=== PATIENT | male | born 1935 | race Caucasian/White ===

== ENCOUNTER → 2016-11-06 | Outpatient (CLI) | payer OTHER ==
[~2016-11-06] MED LIST: CHOL1CAP30 PO; CHOLTAB5 PO; CYAN100048 PO; HYDR25TA5 PO; LSN20 PO; MULT1TAB18 PO; OXYC-57 PO; PARO10TA PO; PARO20TA4 PO; POLY335019 PO; PSYL48.59 PO; SIMV-150 PO
== END | disposition home or self-care (01) ==
LOC: C.PATHSPEC 11:47
PROVIDERS: ATTEND Plastic Surgery
DX: C44.91 Basal cell carcinoma of skin, unspecified (principal)

== ENCOUNTER 2017-04-25 10:22 | Day surgery (SDC) | payer OTHER ==
[2017-04-17 09:26] VITALS: BMI 26.0
--- NOTE | 2017-04-17 10:08 | PAT Medication Instructions ---
Service Date Apr 17, 2017. Current Home Medication List Cholecalciferol (D-1000), 1 TAB PO QAM Cyanocobalamin (Vitamin B-12), 1 TAB PO QAM Multiple Vitamins W/ Minerals (One Daily For Men 50+ Adv), 1 TAB PO QAM Paroxetine Hcl (Paxil), 1 TAB PO QPM Polyethylene Glycol 3350 (Miralax), 17 GM PO DAILY PRN for Constipation Psyllium (Metamucil), 1 PKT PO DAILY PRN for Constipation Simvastatin (Simvastatin), 10 MG PO HS Medication Instructions For Your Scheduled Surgery - Hold the following medications the morning of surgery: Cholecalciferol (D-1000), 1 TAB PO QAM Cyanocobalamin (Vitamin B-12), 1 TAB PO QAM Multiple Vitamins W/ Minerals (One Daily For Men 50+ Adv), 1 TAB PO QAM Polyethylene Glycol 3350 (Miralax), 17 GM PO DAILY PRN for Constipation Psyllium (Metamucil), 1 PKT PO DAILY PRN for Constipation - Take the following medications as scheduled the night before surgery: Paroxetine Hcl (Paxil), 1 TAB PO QPM Simvastatin (Simvastatin), 10 MG PO HS *nothing to eat or drink after midnight* If you have any questions please call us at [phone] or [phone] or [phone]
[2017-04-17 11:11] LABS: BASO % 0.4 %; BASO ABS # 0.02 K/uL (0-0.2); COMPLETE YES; EOS % 2.1 %; HEMATOCRIT 42.5 % (42-52); IG% 0.2 %; LYMPH % 22.8 %; LYMPH ABS # 1.09 K/uL (1.2-3.4); MEAN CELL VOLUME 90.6 fL (80-100); MEAN CORPUSCULAR HEMOGLOBIN 30.3 pg (25-34); MEAN CORPUSCULAR HGB CONC 33.4 g/dl (32-36); MEAN PLATELET VOLUME 9.1 fL (7.4-10.4); MONO % 14.8 %; NEUT % 59.7 %; PLATELET COUNT 151 K/uL (130-400); RED BLOOD COUNT 4.69 M/uL (4.7-6.1); WHITE BLOOD COUNT 4.79 K/uL (4.8-10.8)
[2017-04-17 11:22] LABS: BUN/CREATININE RATIO 14.3 (10-20); CALCIUM 9.5 mg/dl (8.5-10.1); CREATININE 1.1 mg/dl (0.60-1.40); POTASSIUM 3.8 mmol/L (3.5-5.1)
--- NOTE | 2017-04-17 12:08 | DIAGNOSTIC IMAGING REPORT ---
CHEST 2 VIEWS ROUTINE CLINICAL HISTORY: Preoperative evaluation. COMPARISON STUDY: Chest radiograph June 14, 2014. FINDINGS: Lung volumes are normal. No pneumothorax or pleural effusion is present. Cardiac size is within normal limits. There is no evidence of pulmonary edema. There is no consolidation. IMPRESSION: No acute cardiopulmonary findings. Electronically signed by: Chaz Cooley M.D. 04/17/2017 12:06 PM Dictated Date/Time: 04/17/2017 12:05 PM
[~2017-04-25] VITALS: Ht 180.3 cm; Wt 86.4 kg
[~2017-04-25 10:22] MED LIST changes: +ATROPINE SULFATE 0.1 MG/ML 5ML SYR IV PRN; -CHOL1CAP30 PO; +EpHEDrine SULFATE INJ 50 MG/ML AMP IV PRN; +FENTANYL CITRATE INJ 50 MCG/1 ML 2 ML VIAL IV PRN; -HYDR25TA5 PO; +HYDROmorphone INJ 1 MG/ML SYR IV PRN; +LACTATED RINGER'S 1000ML 1,000 ML IV SCH; -LSN20 PO; +ONDANSETRON INJ 2 MG/ML 2 ML VIAL IV PRN; -OXYC-57 PO; -PARO10TA PO
[2017-04-25 11:17] VITALS: BP 135/85; PULSE 56; TEMP 36.6; O2SAT 97; Ht 180.3 cm; Wt 86.4 kg
[2017-04-25] MEDS ORDERED: OXYC-57 PO (12:11)
--- NOTE | 2017-04-25 12:14 | Discharge Instructions ---
Discharge Instructions Date of Service Apr 25, 2017. Admission Reason for Admission: Left Inguinal Hernia Discharge Discharge Diagnosis / Problem: left inguinal hernia repair Discharge Goals Goal(s): Decrease discomfort Activity Recommendations Activity Limitations: as noted below Lifting Limitations: no more than 10 pounds Shower/Bathe: tomorrow Driving or Machine Use: 1 week . Instructions / Follow-Up Instructions / Follow-Up Dr. Pantoja in 1 week, call if you do not already have an appt or have any questions Ice left groin off and on alternating every 20 minutes until bedtime start with 1 Percocet tablet for pain, take 2 if one is not enough, do not take additional Tylenol products Current Hospital Diet Patient's current hospital diet: Discharge Diet Recommended Diet: Regular Diet Pending Studies Studies pending at discharge: no Medical Emergencies . Who to Call and When: Medical Emergencies: If at any time you feel your situation is an emergency, please call 911 immediately. . Non-Emergent Contact Non-Emergency issues call your: Surgeon Call Non-Emergent contact if: you have a fever, temperature is above 101.5, your pain is not controlled, wound has increased pain, you have any medication questions . "Provider Documentation" section prepared by Kwan Jackson. . VTE Core Measure Inpt VTE Proph given/why not?: SCD's
--- NOTE | 2017-04-25 12:14 | History & Physical Bridge Note ---
H&P Re-Evaluation Bridge Note: I have examined the patient, reviewed the History & Physical and in the interval since the performance of the History & Physical I have noted the following changes of clinical significance: No changes noted pt marked to be here later all questions answered
[2017-04-25] MEDS ORDERED: PROPOFOL IV EMULSION 10 MG/ML 20 ML VIAL IV ONE (12:23)
[2017-04-25] MEDS ORDERED: ONDANSETRON INJ 2 MG/ML 2 ML VIAL ONE (12:23)
[2017-04-25] MEDS ORDERED: LIDOCAINE HCL 2% 2 ML VIAL (20MG/ML) ONE (12:23)
[2017-04-25] MEDS ORDERED: FENTANYL CITRATE INJ 50 MCG/1 ML 2 ML VIAL ONE ×2 (12:24→13:08)
[2017-04-25] MEDS ORDERED: BACITRACIN 50000 UNIT VIAL ONE (12:26)
[2017-04-25] MEDS ORDERED: BUPIVACAINE 0.5 % 5 MG/1 ML MPF 30ML VIAL ONE (12:26)
[2017-04-25] MEDS ORDERED: CEFAZOLIN IV 2,000 MG/60 ML D5W IV ONE (12:33)
[2017-04-25] MEDS ORDERED: EpHEDrine SULFATE INJ 50 MG/ML AMP ONE (12:59)
[2017-04-25] MEDS ORDERED: GLYCOPYRROLATE INJ 0.2 MG/ML VIAL ONE (12:59)
[2017-04-25] MEDS ORDERED: ATROPINE SULFATE 0.4 MG/ML 1 ML VIAL ONE (12:59)
[2017-04-25] MEDS ORDERED: LACTATED RINGER'S 1000ML 1,000 ML IV SCH (13:54)
--- NOTE | 2017-04-25 13:56 | [facility] Operative Report ---
Operative Report Operative Date Apr 25, 2017. Pre-Operative Diagnosis Left Inguinal Hernia Post-Operative Diagnosis plus sliding indirect hernia Procedure(s) Performed Left inguinal hernia repair with mesh Surgeon Dr Pantoja Child Study Team Director Surgeon(s) Kwan Tenorio PA-C Estimated Blood Loss 10ml Findings large indirect hernia sliding Specimens none Description of Procedure or summary dictated ext [id number] confirmation number [id number] I attest to the content of the Intraoperative Record and any orders documented therein. Any exceptions are noted below.
[2017-04-25] MEDS ORDERED: ONDANSETRON INJ 2 MG/ML 2 ML VIAL IV PRN (14:00)
[2017-04-25] MEDS ORDERED: OXYCODONE/ACETAMINOPHEN 5-325 TAB PO PRN (14:00)
[2017-04-25] MEDS ORDERED: MoRPHine SULFATE 2 MG/ML CARP IV PRN (14:00)
--- NOTE | 2017-04-25 14:38 | Anesthesiology Progress Note ---
Anesthesia Post Op Note Date & Time Apr 25, 2017 at 14:38 Vital Signs Pain Intensity: 0 Vital Signs Past 12 Hours Date Time Temp Pulse Resp B/P (MAP) Pulse Ox O2 Delivery O2 Flow Rate FiO2 04/25/17 14:30 60 24 132/75 99 Room Air 04/25/17 14:20 60 17 134/75 98 Oxymask 10 04/25/17 14:10 43 14 139/65 99 Oxymask 10 04/25/17 14:02 36.2 47 19 139/56 97 Oxymask 10 04/25/17 11:17 36.6 56 18 135/85 (102) 97 Room Air Notes Mental Status: alert / awake / arousable, participated in evaluation Pt Amnestic to Procedure: Yes Nausea / Vomiting: adequately controlled Pain: adequately controlled Airway Patency, RR, SpO2: stable & adequate BP & HR: stable & adequate Hydration State: stable & adequate Anesthetic Complications: no major complications apparent
--- NOTE | 2017-04-25 14:45 | OPERATIVE REPORT ---
DATE OF OPERATION: 04/25/2017 PREOPERATIVE DIAGNOSIS: Left inguinal hernia. POSTOPERATIVE DIAGNOSIS: Left indirect sliding hernia. PROCEDURE: Open repair left indirect sliding hernia with Marlex mesh tension free. SURGEON: Dr. Pantoja. EYE GLASS FRAME POLISHER: [place] Jackson PA-C. OPERATION AND FINDINGS: SUMMARY: The patient was brought into the operating room theater. The abdomen was prepped with Betadine scrubbing solution and properly draped. A 0.5% Marcaine without epinephrine was used, preemptive local analgesia 2 fingerbreadths medial anterior superior iliac crest. An incision was then made parallel to the inguinal ligament, deepened through subcutaneous tissue onto the external oblique. Some large vessels subQ were ligated with 2-0 silk. The external oblique was opened along the course of its fibers to the external ring, which patient had a significant amount of incarcerated tissue at the external ring. We elevated over a Jeffery drain, the cord and its structures and identified as we dissected free that this was a large indirect hernia. We had to open the hernial sac and found the sigmoid adherent to the area, especially part of whether it was omental or mesenteric surface to the sigmoid, therefore the opening was made, it was about 3 cm at most, it was then closed with a chromic suture and returned all this in the preperitoneal area. We used some 3-0 silk sutures to close the some transversalis fascia just to get it out of the way. The cord and structures had some very small lipomatous tissue which we did not molest. The area was then checked for hemostasis. The patient also had a direct weakness which we closed the approximate some transversalis fascia with 3-0 silk, brought in a sheet of Marlex mesh, 3 x 6, cut it appropriately and sutured onto the symphysis pubis, shelving portion of the inguinal ligament, conjoined tendon superiorly to completely reconstruct the internal ring that could only accommodate the tip of a hemostat. There were a few nerve fibers that were trapped underneath the external oblique superiorly. As we identified those I intentionally just cut those feeling that it would be trapped. The area was then checked for hemostasis and appeared satisfactory. We used some local anesthetic 0.5% Marcaine above and below in the muscular fascial planes and then closed the external oblique over the cord and its structures with mesh, 3-0 interrupted sutures to reconstruct the external ring. Subcutaneous tissue was brought back 3-0 Dexon and hai for skin edges. Dressing was applied. The procedure was tolerated well by the patient. Estimated blood loss approximately 10 mL. The patient was taken to recovery room in good condition. I attest to the content of the Intraoperative Record and any orders documented therein. Any exception s are noted below.
[2017-04-25 14:50] VITALS: BP 151/71; PULSE 67; TEMP 36.5; O2SAT 92
[2017-04-25 15:25] VITALS: BP 150/74; PULSE 65; O2SAT 94
[2017-04-25 15:55] VITALS: BP 125/52; PULSE 58; TEMP 36.4; O2SAT 98
== END 2017-04-25 16:03 | disposition home or self-care (01) ==
LOC: C.ACU 10:22
PROVIDERS: ATTEND Surgery
DX: K40.90 Unilateral inguinal hernia, without obstruction or gangrene, not specified as recurrent (principal); E78.5 Hyperlipidemia, unspecified; F41.9 Anxiety disorder, unspecified; F32.9 Major depressive disorder, single episode, unspecified; H90.41 Sensorineural hearing loss, unilateral, right ear, with unrestricted hearing on the contralateral side; Z79.899 Other long term (current) drug therapy

== ENCOUNTER → 2017-06-20 | Outpatient (CLI) | payer OTHER ==
[~2017-06-20] MED LIST changes: -ATROPINE SULFATE 0.1 MG/ML 5ML SYR IV PRN; -EpHEDrine SULFATE INJ 50 MG/ML AMP IV PRN; -FENTANYL CITRATE INJ 50 MCG/1 ML 2 ML VIAL IV PRN; -HYDROmorphone INJ 1 MG/ML SYR IV PRN; -LACTATED RINGER'S 1000ML 1,000 ML IV SCH; -ONDANSETRON INJ 2 MG/ML 2 ML VIAL IV PRN
[2017-06-20 17:54] LABS: BASO % 0.6 %; BASO ABS # 0.04 K/uL (0-0.2); COMPLETE YES; EOS % 1.8 %; HEMATOCRIT 44.7 % (42-52); IG% 0.2 %; LYMPH % 28.1 %; LYMPH ABS # 1.84 K/uL (1.2-3.4); MEAN CELL VOLUME 90.7 fL (80-100); MEAN CORPUSCULAR HEMOGLOBIN 30.2 pg (25-34); MEAN CORPUSCULAR HGB CONC 33.3 g/dl (32-36); MEAN PLATELET VOLUME 9.9 fL (7.4-10.4); MONO % 12.5 %; NEUT % 56.8 %; PLATELET COUNT 213 K/uL (130-400); RED BLOOD COUNT 4.93 M/uL (4.7-6.1); WHITE BLOOD COUNT 6.54 K/uL (4.8-10.8)
[2017-06-20 17:58] LABS: PROTHROMBIN TIME (PATIENT) 10.2 SECONDS (9.0-12.0)
[2017-06-20 18:03] LABS: ALT/SGPT 29 U/L (12-78); AST/SGOT 26 U/L (15-37); BLOOD UREA NITROGEN 20 mg/dl (7-18); BUN/CREATININE RATIO 15.4 (10-20); CALCIUM 8.9 mg/dl (8.5-10.1); CARBON DIOXIDE 32 mmol/L (21-32); CHLORIDE 103 mmol/L (98-107); CREATININE 1.27 mg/dl (0.60-1.40); GLUCOSE 106 mg/dl (70-99); POTASSIUM 3.9 mmol/L (3.5-5.1); SODIUM 136 mmol/L (136-145)
[2017-06-20 18:13] LABS: ALB/GLOB RATIO 1.1 (0.9-2); ALKALINE PHOSPHATASE 68 U/L (45-117)
== END | disposition home or self-care (01) ==
LOC: C.LABPVFM 15:33
PROVIDERS: ATTEND Neuromusculoskeletal Medicine & OMM
DX: Z00.00 Encounter for general adult medical examination without abnormal findings (principal); K92.1 Melena

== ENCOUNTER → 2017-06-24 | Outpatient (CLI) | payer OTHER ==
--- NOTE | 2017-06-24 13:04 | DIAGNOSTIC IMAGING REPORT ---
L-SPINE MIN 4 VIEWS ROUTINE CLINICAL HISTORY: M54.5 Low back painM62.830 Lumbar paraspinal muscle spasm COMPARISON STUDY: No previous studies for comparison. FINDINGS: There are moderate multilevel degenerative changes with prominent anterior osteophytes. There is disc space narrowing most pronounced the L4-5 level with small posterior osteophytes. There is narrowing of the AP diameter spinal canal, and spinal stenosis most be considered. IMPRESSION: 1. Moderate multilevel degenerative change 2. Possible underlying spinal stenosis 3. No acute fractures Electronically signed by: Hugo Sanders M.D. 06/24/2017 1:03 PM Dictated Date/Time: 06/24/2017 1:01 PM
== END | disposition home or self-care (01) ==
LOC: C.RAD1850 12:00
PROVIDERS: ATTEND Neuromusculoskeletal Medicine & OMM
DX: M54.5 Low back pain (principal); M62.830 Muscle spasm of back

== ENCOUNTER 2017-07-04 14:14 | Emergency (ER) | payer OTHER ==
[~2017-07-04] VITALS: Ht 180.3 cm; Wt 85.8 kg
[2017-07-04 14:18] VITALS: TEMP 36.7; Ht 180.3 cm; Wt 85.8 kg
[2017-07-04] MEDS ORDERED: SODIUM CHLORIDE 0.9% 500ML 500 ML IV STA (14:40)
--- NOTE | 2017-07-04 14:45 | EMERGENCY ROOM VISIT NOTE ---
History First contact with patient: 14:27 Chief Complaint: DIZZY Stated Complaint: DIZZY,BALANCE,ALWAYS TIRED History of Present Illness The patient is a 81 year old male who presents to the Emergency Room with complaints of lightheadedness that occurs upon standing. This has been going on for the last several weeks. He has tried increasing his fluid intake with minimal relief of his symptoms. He denies any spinning sensation or nausea. He denies any syncope. No difficulty breathing. No pain in his chest. No recent changes in medications. He denies any recent illnesses. Review of Systems 10 system review performed and negative unless noted in HPI or below Past Medical/Surgical History Surgical Problems: (1) Hx of hernia repair Social History Smoking Status: Former Smoker Alcohol Use: occasionally Drug Use: none Marital Status: Housing Status: lives with significant other Occupation Status: retired Current/Historical Medications Scheduled Cholecalciferol (D-1000), 1 TAB PO Q2D Cyanocobalamin (Vitamin B-12), 1 TAB PO Q2D Multiple Vitamins W/ Minerals (One Daily For Men 50+ Adv), 1 TAB PO Q2D Paroxetine Hcl (Paxil), 20 MG PO QPM Prednisone (Prednisone), 50 MG PO DAILY Simvastatin (Simvastatin), 10 MG PO HS Scheduled PRN Polyethylene Glycol 3350 (Miralax), 17 GM PO DAILY PRN for Constipation Psyllium (Metamucil), 1 PKT PO DAILY PRN for Constipation Physical Exam Vital Signs Date Time Temp Pulse Resp B/P (MAP) Pulse Ox O2 Delivery O2 Flow Rate FiO2 07/04/17 16:16 61 16 135/70 94 Room Air 07/04/17 15:28 69 07/04/17 15:27 59 18 138/69 98 Room Air 68 119/59 80 120/50 07/04/17 14:18 36.7 61 24 145/76 96 Room Air Physical Exam VITALS: Vitals are noted on the nurse's note and reviewed by myself. Vital signs stable. GENERAL: Pleasant 81-year-old white male, in no acute distress, SKIN: The skin was without rashes, erythema, edema, or bruising. HEAD: Normocephalic atraumatic. EARS: External auditory canals clear, tympanic membranes pearly espino without erythema or effusion bilaterally. EYES: Pupils equal round and reactive to light and accommodation. Conjunctivae without injection, sclerae without icterus. Extraocular movements intact. MOUTH: Mucous membranes moist. NECK: Supple without nuchal rigidity. No lymphadenopathy. Cervical spine is nontender. No JVD. HEART: Regular rate and rhythm without murmurs gallops or rubs. LUNGS: Clear to auscultation bilaterally without wheezes, rales or rhonchi. No accessory muscle use. ABDOMEN: Positive bowel sounds x 4.Soft, nontender, without organomegaly. No guarding or rebound tenderness. MUSCULOSKELETAL: No muscle atrophy, erythema, or edema noted. Strength 5/5 throughout. NEURO: Patient was alert and oriented to person place and time. Normal sensation to touch. No focal neurological deficits. Medical Decision & Procedures ER Provider Diagnostic Interpretation: toe xray IMPRESSION: No acute osseous injury of the first toe. Degenerative changes of the interphalangeal joint. Electronically signed by: Jesús Fernández M.D. 07/04/2017 5:30 PM Dictated Date/Time: 07/04/2017 5:28 PM The status of this report is Signed. Draft = Not yet reviewed or approved by Radiologist. Signed = Reviewed and approved by Radiologist. CT head without contrast IMPRESSION: 1. Chronic small vessel ischemic change. No acute intracranial abnormality. Electronically signed by: Jesús Fernández M.D. 07/04/2017 5:14 PM Dictated Date/Time: 07/04/2017 5:12 PM The status of this report is Signed. Draft = Not yet reviewed or approved by Radiologist. Signed = Reviewed and approved by Radiologist. <AttendingPhy></AttendingPhy> <FamilyPhy>Xu Han D.O.</FamilyPhy> < PrimaryPhy>Xu Han D.O.</PrimaryPhy> <UnitNumber>[id number]</ UnitNumber> <VisitNumber>[id number]</VisitNumber> <PatientName>MAU CARLISLE</PatientName> <DateOfBirth>1935</DateOfBirth> <Location>[facility]</ Location> <ServiceDate>07/04/17</ServiceDate> <MNE>ESINDI</MNE> <OrderingPhy> Phuong Jones PA-C</OrderingPhy> <OrderingPhyMNE>f rep ord dr davis</ OrderingPhyMNE> <DictatingPhyMNE>f rep dict dr davis</DictatingPhyMNE> <CCListMNE> f rep ct mne</CCListMNE> <AdmittingPhyMNE>f pt admit dr davis</AdmittingPhyMNE> < AttendingPhyMNE>f pt attend dr davis</AttendingPhyMNE> <ConsultingPhyMNE>f pt consult dr davis</ConsultingPhyMNE> <FamilyPhyMNE>f pt fam dr davis</FamilyPhyMNE> <OtherPhyMNE>f pt other dr davis</OtherPhyMNE> < PrimaryPhyMNE>f pt prim care dr davis</PrimaryPhyMNE> <ReferringPhyMNE>f pt referring dr davis</ReferringPhyMNE> cxr IMPRESSION: AP portable study. No acute findings. Electronically signed by: Hugo Sanders M.D. 07/04/2017 3:18 PM Dictated Date/Time: 07/04/2017 3:18 PM The status of this report is Signed. Draft = Not yet reviewed or approved by Radiologist. Signed = Reviewed and approved by Radiologist. Laboratory Results 07/04/17 15:04 Red Blood Count 4.76, Mean Corpuscular Volume 89.3, Mean Corpuscular Hemoglobin 30.3, Mean Corpuscular Hemoglobin Concent 33.9, Mean Platelet Volume 9.2, Neutrophils (%) (Auto) 62.7, Lymphocytes (%) (Auto) 17.2, Monocytes (%) (Auto) 18.5, Eosinophils (%) (Auto) 1.2, Basophils (%) (Auto) 0.1, Neutrophils # (Auto ) 4.54, Lymphocytes # (Auto) 1.25, Monocytes # (Auto) 1.34, Eosinophils # (Auto ) 0.09, Basophils # (Auto) 0.01 07/04/17 15:04 Test 07/04/17 15:04 07/04/17 15:05 07/04/17 15:33 White Blood Count 7.25 K/uL (4.8-10.8) Red Blood Count 4.76 M/uL (4.7-6.1) Hemoglobin 14.4 g/dL (14.0-18.0) Hematocrit 42.5 % (42-52) Mean Corpuscular Volume 89.3 fL (80-100) Mean Corpuscular Hemoglobin 30.3 pg (25-34) Mean Corpuscular Hemoglobin Concent 33.9 g/dl (32-36) Platelet Count 164 K/uL (130-400) Mean Platelet Volume 9.2 fL (7.4-10.4) Neutrophils (%) (Auto) 62.7 % Lymphocytes (%) (Auto) 17.2 % Monocytes (%) (Auto) 18.5 % Eosinophils (%) (Auto) 1.2 % Basophils (%) (Auto) 0.1 % Neutrophils # (Auto) 4.54 K/uL (1.4-6.5) Lymphocytes # (Auto) 1.25 K/uL (1.2-3.4) Monocytes # (Auto) 1.34 K/uL (0.11-0.59) Eosinophils # (Auto) 0.09 K/uL (0-0.5) Basophils # (Auto) 0.01 K/uL (0-0.2) RDW Standard Deviation 43.4 fL (36.4-46.3) RDW Coefficient of Variation 13.3 % (11.5-14.5) Immature Granulocyte % (Auto) 0.3 % Immature Granulocyte # (Auto) 0.02 K/uL (0.00-0.02) Anion Gap 4.0 mmol/L (3-11) Est Creatinine Clear Calc Drug Dose 44.8 ml/min Estimated GFR () 56.9 Estimated GFR (Non- 49.1 BUN/Creatinine Ratio 15.4 (10-20) Calcium Level 9.2 mg/dl (8.5-10.1) Troponin I 0.017 ng/ml (0-0.045) Thyroid Stimulating Hormone (TSH) 2.640 uIu/ml (0.300-4.500) Lyme Disease IgG Antibody NEG (NEG) Lyme Disease IgM Antibody NEG (NEG) Urine Color DK YELLOW Urine Appearance CLEAR (CLEAR) Urine pH 5.0 (4.5-7.5) Urine Specific [place] 1.023 (1.000-1.030) Urine Protein 1+ (NEG) Urine Glucose (UA) NEG (NEG) Urine Ketones TRACE (NEG) Urine Occult Blood NEG (NEG) Urine Nitrite NEG (NEG) Urine Bilirubin NEG (NEG) Urine Urobilinogen NEG (NEG) Urine Leukocyte Esterase NEG (NEG) Urine WBC (Auto) 0 /hpf (0-5) Urine RBC (Auto) 0-4 /hpf (0-4) Urine Hyaline Casts (Auto) 1-5 /lpf (0-5) Urine Epithelial Cells (Auto) 5-10 /lpf (0-5) Urine Bacteria (Auto) NEG (NEG) Medications Administered Medications (Trade) Dose Ordered Sig/Mike Route Start Time Stop Time Status Last Admin Dose Admin Sodium Chloride 500 ml @ 999 mls/hr Q31M STAT IV 07/04/17 14:40 07/04/17 15:10 DC 07/04/17 15:34 999 MLS/HR ECG Indication: weakness Rate (beats per minute): 56 Rhythm: sinus bradycardia Findings: LAFB, RBBB Change: no significant change ED Course Patient was seen and examined Vital signs including blood pressure were reviewed medications list was verified with patient Labs were obtained, and a saline lock was established An EKG was performed, and the patient was put on a monitor Orthostatic vital signs were obtained He was given a 500 mL normal saline bolus The patient was reassessed and resting comfortably. We discussed the results of his workup. He voiced understanding. He was given 1 dose of prednisone 50 mg by mouth. He was also given a tube of Voltaren gel I reviewed discharge instructions the patient. They voiced understanding and had no further questions. Medical Decision Differential diagnosis: Orthostatic hypotension, near syncope, dehydration, intracranial abnormality, cardiac arrhythmia This patient is a pleasant 81-year-old male that presents to the emergency department with lightheadedness upon standing. He also notes that this typically occurs after bowel movements. His exam was benign. He was neurologically intact. His family did however say that he is hearing voices at night. I performed a workup including a CT of the head. This was negative for any acute findings. His EKG appears unchanged when compared to his prior EKG. Labs are otherwise unremarkable. I believe he is likely experienced orthostatic hypotension upon standing. He was counseled on staying well- hydrated. He was also encouraged to take his time when rising to a standing position. The patient was given a follow-up appointment tomorrow with his primary care physician for a recheck. Of note, he was also complaining of left great toe pain. This appears to be arthritic in nature. The patient was given a short course of prednisone and Voltaren gel This chart was completed in part utilizing [employer] Speech Voice Recognition software. Attempts were made to minimize the grammatical errors, random word insertions, pronoun errors and incomplete sentences. Any formal questions or concerns about the content, text or information contained within the body of this dictation should be directly addressed to the provider for clarification. Medication Reconcilliation Current Medication List: was personally reviewed by me Blood Pressure Screening Patient's blood pressure: Normal blood pressure Impression Primary Impression: Dizziness Departure Information Dispostion Home / Self-Care Condition GOOD Prescriptions Prednisone (Prednisone) 50 Mg Tab 50 MG PO DAILY for 4 Days, #4 TAB Prov: Phuong Jones PA-C 07/04/17 Referrals Xu Han D.ORoe (PCP) Patient Instructions [facility] Additional Instructions You were evaluated in the emergency department for dizziness. This is possibly due to a drop in blood pressure upon standing. It is very important to stay well hydrated. Please get up slowly from a lying and sitting position. For the left big toe pain, please take the entire course of steroids as directed Use Voltaren gel-apply to affected area every 8 hours as needed for pain Please follow-up with your primary care physician as scheduled tomorrow. They may want to order further testing. Do not hesitate to return to the emergency department with any new, worsening or concerning symptoms.
--- NOTE | 2017-07-04 15:16 | EMERGENCY ROOM VISIT NOTE ---
ED Visit Note First contact with patient: 14:27 This Patient was discussed with the physician public health training assistant, Phuong Jones PA-C. The pertinent historical and physical exam findings were confirmed. I agree with the studies ordered and with the interpretations of these studies. I agree with the disposition and care plan.
[2017-07-04 15:20] LABS: BASO % 0.1 %; BASO ABS # 0.01 K/uL (0-0.2); COMPLETE YES; EOS % 1.2 %; HEMATOCRIT 42.5 % (42-52); IG% 0.3 %; LYMPH % 17.2 %; LYMPH ABS # 1.25 K/uL (1.2-3.4); MEAN CELL VOLUME 89.3 fL (80-100); MEAN CORPUSCULAR HEMOGLOBIN 30.3 pg (25-34); MEAN CORPUSCULAR HGB CONC 33.9 g/dl (32-36); MEAN PLATELET VOLUME 9.2 fL (7.4-10.4); MONO % 18.5 %; NEUT % 62.7 %; PLATELET COUNT 164 K/uL (130-400); RED BLOOD COUNT 4.76 M/uL (4.7-6.1); WHITE BLOOD COUNT 7.25 K/uL (4.8-10.8)
--- NOTE | 2017-07-04 15:20 | DIAGNOSTIC IMAGING REPORT ---
CHEST ONE VIEW PORTABLE CLINICAL HISTORY: dizziness FATIGUE COMPARISON STUDY: 05/22/2017 FINDINGS: The heart is borderline enlarged. There is no failure. There is no focal pulmonary consolidation. There are no pleural effusions. Indistinctness left heart border is likely secondary to a prominent cardiophrenic angle fat pad.[ IMPRESSION: AP portable study. No acute findings. Electronically signed by: Hugo Sanders M.D. 07/04/2017 3:18 PM Dictated Date/Time: 07/04/2017 3:18 PM
[2017-07-04 15:41] LABS: BUN/CREATININE RATIO 15.4 (10-20); CALCIUM 9.2 mg/dl (8.5-10.1); CREATININE 1.33 mg/dl (0.60-1.40); POTASSIUM 3.8 mmol/L (3.5-5.1)
[2017-07-04 15:52] LABS: THYROID STIMULATING HORMONE 2.64 uIu/ml (0.300-4.500)
[2017-07-04 16:13] LABS: URINE APPEARANCE CLEAR (CLEAR); URINE BILIRUBIN NEG (NEG); URINE COLOR DK YELLOW; URINE NITRITE NEG (NEG); URINE SPECIFIC GRAVITY 1.023 (1.000-1.030); UROBILINOGEN NEG (NEG)
[2017-07-04 16:14] LABS: MANUAL MICROSCOPIC REQUIRED? NO; REVIEW REQ? NO
[2017-07-04 16:53] LABS: LYME DISEASE AB IGG NEG (NEG); LYME DISEASE AB IGM NEG (NEG)
--- NOTE | 2017-07-04 17:16 | DIAGNOSTIC IMAGING REPORT ---
HEAD WITHOUT CONTRAST (CT) CLINICAL HISTORY: 81 years-old Male presenting with dizzy hearing voices. TECHNIQUE: Multidetector CT imaging of the head was performed without the use of intravenous contrast. IV contrast: None. A dose lowering technique was used consistent with the principles of ALARA (as low as reasonably achievable). COMPARISON: None. CT DOSE (mGy.cm): The estimated cumulative dose is 601.98 mGy.cm. FINDINGS: Audio Video Technician topogram: Unremarkable. Ventricles and sulci normal in size. Periventricular and subcortical white matter hypoattenuation, nonspecific but likely indicative of chronic small vessel ischemic change. No mass effect or midline shift. No hemorrhage or acute territorial infarct. No extra-axial fluid collection. Paranasal sinuses and mastoid air cells clear. Calvarium intact. Bilateral alutiiq lenses are absent. IMPRESSION: 1. Chronic small vessel ischemic change. No acute intracranial abnormality. Electronically signed by: Jesús Fernández M.D. 07/04/2017 5:14 PM Dictated Date/Time: 07/04/2017 5:12 PM
[2017-07-04] MEDS ORDERED: PRED50TA PO (17:31)
--- NOTE | 2017-07-04 17:31 | DIAGNOSTIC IMAGING REPORT ---
L TOE(S) MIN 2 VIEWS CLINICAL HISTORY: 81 years-old Male presenting with L great toe pain at IP joint. TECHNIQUE: Frontal, oblique and lateral views of the left first toe were obtained. COMPARISON: None. FINDINGS: Mild degenerative changes at the interphalangeal joint suggested. Slight valgus ventilation of the distal phalanx of the first toe. No acute fracture or malalignment. No radiographic evidence of a soft tissue abnormality. IMPRESSION: No acute osseous injury of the first toe. Degenerative changes of the interphalangeal joint. Electronically signed by: Jesús Fernández M.D. 07/04/2017 5:30 PM Dictated Date/Time: 07/04/2017 5:28 PM
[2017-07-04] MEDS ORDERED: DICLOFENAC SOD 1% GEL 100 GM TUBE EXT STA (17:34)
[2017-07-04 18:05] VITALS: BP 115/73; PULSE 88; O2SAT 98
== END 2017-07-04 18:05 | disposition home or self-care (01) ==
LOC: C.EDB 14:15
DX: R42 Dizziness and giddiness (principal); Z87.891 Personal history of nicotine dependence

== ENCOUNTER → 2017-11-05 | Outpatient (CLI) | payer OTHER | END | disposition home or self-care (01) | LOC: C.LABPVFM 11:28 | PROVIDERS: ATTEND Family Medicine | DX: E78.5 Hyperlipidemia, unspecified (principal); R05 Cough ==

== ENCOUNTER → 2018-02-28 | Outpatient (CLI) | payer OTHER ==
[2018-02-28 17:29] LABS: ALBUMIN 3.9 gm/dl (3.4-5.0); ALKALINE PHOSPHATASE 61 U/L (45-117); ALT/SGPT 26 U/L (12-78); AST/SGOT 26 U/L (15-37); BLOOD UREA NITROGEN 18 mg/dl (7-18); CALCIUM 9.4 mg/dl (8.5-10.1); CARBON DIOXIDE 30 mmol/L (21-32); CHOLESTEROL 162 mg/dl (0-200); CREATININE 1.28 mg/dl (0.60-1.40); GLUCOSE 101 mg/dl (70-99); LDL CHOLESTEROL CALCULATED 67 mg/dl; POTASSIUM 4.1 mmol/L (3.5-5.1); SODIUM 140 mmol/L (136-145); TOTAL PROTEIN 7.1 gm/dl (6.4-8.2)
== END | disposition home or self-care (01) ==
LOC: C.LABPVFM 11:36
PROVIDERS: ATTEND Family Medicine
DX: E78.5 Hyperlipidemia, unspecified (principal); M25.651 Stiffness of right hip, not elsewhere classified

== ENCOUNTER 2020-01-20 19:35 | Inpatient (IN) ==
[2020-01-20] MEDS ORDERED: ACETAMINOPHEN 500 MG TAB PO STA (20:06)
[2020-01-20] MEDS ORDERED: SODIUM CHLORIDE 0.9% 1000ML 1,000 ML IV SCH (20:15)
[2020-01-20 20:22] LABS: Basophils # (auto) 0.01 K/uL (0-0.2); Basophils % (auto) 0.1 %; Hematocrit (blood only) 39.2 % (42-52); Hemoglobin 13.4 g/dL (14.0-18.0); Immature Granulocytes # (auto) 0.03 K/uL (0.00-0.02); Immature Granulocytes % (auto) 0.3 %; Lymphocytes # (auto) 0.47 K/uL (1.2-3.4); Lymphocytes % (auto) 4.2 %; Mean Corpuscular Hemoglobin 30.5 pg (25-34); Mean Corpuscular Hgb Conc 34.2 g/dL (32-36); Mean Corpuscular Volume 89.3 fL (80-100); Mean Platelet Volume 9.8 fL (7.4-10.4); Monocytes # (auto) 0.84 K/uL (0.11-0.59); Monocytes % (auto) 7.4 %; Neutrophils # (auto) 9.96 K/uL (1.4-6.5); Platelet Count 196 K/uL (130-400); RDW Coefficient of Variation 13.9 % (11.5-14.5); RDW Standard Deviation 45.7 fL (36.4-46.3); Red Blood Count 4.39 M/uL (4.7-6.1); White Blood Count 11.31 K/uL (4.8-10.8)
[2020-01-20 20:39] LABS: Alanine Aminotransferase 39 U/L (12-78); Albumin Level 2.9 gm/dl (3.4-5.0); Aspartate Aminotransferase 76 U/L (15-37); BUN Creatinine Ratio 16.3 (10-20); Blood Urea Nitrogen 24 mg/dl (7-18); Calcium 8.4 mg/dl (8.5-10.1); Carbon Dioxide 24 mmol/L (21-32); Chloride 99 mmol/L (98-107); Est GFR (African American) 49.4; Est GFR (Non-African American) 42.6; Glucose 167 mg/dl (70-99); Magnesium 2.1 mg/dl (1.8-2.4); Potassium 3.9 mmol/L (3.5-5.1); Sodium 133 mmol/L (136-145)
[2020-01-20 20:45] LABS: Alkaline Phosphatase 53 U/L (45-117)
[2020-01-20] MEDS ORDERED: CEFEPIME 2,000 MG/20 ML VIAL IV STA (20:48)
[2020-01-20] MEDS ORDERED: SODIUM CHLORIDE 0.9% 1000ML 1,000 ML IV ONE ×2 (20:48→22:27)
[2020-01-20 20:53] LABS: Albumin Globulin Ratio 0.8 (0.9-2); Bilirubin,Total 1.5 mg/dl (0.2-1); Globulin 3.8 gm/dl (2.5-4.0); Total Protein 6.7 gm/dl (6.4-8.2); Troponin I 0.191 ng/ml (0-0.045)
--- NOTE | 2020-01-20 20:56 | Emergency Department Note ---
Impression & Plan Sepsis, Fever, Leukocytosis, Hypoxia ED Provider Note NAME: MAU CARLISLE AGE: 84 SEX: M ARRIVES VIA: Ambulance INFORMANT: [Patient] daughter ED PROVIDER(S): Yo King MD CHIEF COMPLAINT: Altered mental status PLAN: Disposition: Admitted Condition: Guarded MEDICAL DECISION MAKING: Patient presented because of altered mental status. He had a fever. On presentation his temperature was quite high. He was conversive but had some difficulty with history details. Due to his travel he was placed in respiratory isolation. Bio fire and COVID testing performed. Blood cultures, lactate, and blood work performed. Imaging performed as well. The patient was hydrated with IV fluids. He had a leukocytosis on CBC. Serum lactate was elevated. Given the fever and these findings this was concerning for sepsis. He was empirically given a dose of IV cefepime and vancomycin. He was also given T ylenol. Bio fire was negative. COVID testing was positive. Lactate mildly elevated. Patient's troponin is elevated. The patient will need to be admitted to the hospital. His chest x-ray does show increased markings in the right side. Triage Nursing notes reviewed and agree them. [Additional history obtained from] patient's daughter. Vital Signs: reviewed and remarkable for significant fever. Hypoxia for EMS. Differential diagnosis: Viral syndrome, COVID-19, pneumonia, influenza, meningitis, urinary tract infec tion, sepsis, bacteremia, as well as other pathologies. ER treatment provided: Normal saline hydration Oral Tylenol IV cefepime IV vancomycin Normal saline bolus and hydration Diagnostics interpreted by me: ECG: Twelve-lead ECG reveals an atrial sensed ventricular paced rhythm at 91 bpm. No PVCs. No ST elevation. Cardiac Monitoring: Cardiac monitoring ordered by me: The patient was placed on continuous cardiac monitoring and observed. It revealed a paced rhythm at 92 beats per minute without evidence of dysrhythmia. Imaging studies: Chest x-ray. Findings: Increased interstitial markings on the right side concerning for pneumonitis/inflammatory process. Head CT: A noncontrast CT scan of the head was performed and was negative for tumor, fracture, intracranial hemorrhage, or other acute pathology. Consultation(s): [none] HPI: The patient is a 84 year old male who presents to the Emergency Room with complaints of altered mental status. This started yesterday and is persistent. The patient also notes the following associated symptoms, fever, shortness of breath. The patient has found no relieving factors. Current pain is rated as 3/10. Patient recently had a fall and was evaluated in [place] where he was from. The patient daughter states that he had an injury to his right 10th rib and shoulder. He was moving to this area yesterday to change his residence and be near family. Patient has difficulty with details of the history therefore it is limited. Pt denies LOC, headache, visual changes, neck pain, central or left-sided chest pain, nausea, vomiting, abdominal pain, back pain, diarrhea, urinary symptoms, numbness, weakness, or other complaints. ROS: See above HPI for pertinent positives & negatives. A total of [10] systems reviewed and were otherwise negative. PAST MEDICAL HISTORY:[See Below] hypertension, hyperlipidemia PAST SURGICAL HISTORY:[See Below]pacemaker FAMILY HISTORY:[See Below] SOCIAL HISTORY:[See Below] divorce HOME MEDICATIONS:[See Below] ALLERGIES:[See Below] VITALS:[See Below] PHYSICAL EXAMINATION: GENERAL: Awake, alert, mildly-appearing, in no distress HENT: Normocephalic, atraumatic. Oropharynx unremarkable. EYES: Normal conjunctiva. Sclera non-icteric. NECK: Inspection normal. Non-tender. Supple. No nuchal rigidity. FROM. No masses. RESPIRATORY: Clear to auscultation. No wheezes. No rales. Normal respiratory effort. CARDIAC: Borderline tachycardic rate. Normal rhythm. No murmurs. No rubs. Extremities warm and well perfused. Pulses equal. No JVD. GI: Soft, non-distended. No tenderness to palpation. No rebound or guarding. No masses. RECTAL: Deferred. MUSCULOSKELETAL: Atraumatic. Chest examination reveals mild right rib tenderness. The back is symmetrical on inspection without obvious abnormality. There is no CVA tenderness to palpation. No joint edema. LOWER EXTREMITIES: Calves are equal size bilaterally and non-tender. No edema. No discoloration. NEURO: Altered sensorium. No sensory or motor deficits noted. SKIN: No rash or jaundice noted. [Critical Care:] I have personally spent greater than 41 minutes of critical care time in the direct management of this patient. This includes bedside care, interpretation of diagnostic studies, and testing, discussion with consultants, patient, and family members, and other required patient management activities. These minutes are in excess of all separately billable procedures. Yo King MD Past Med/Surg History Social History Preferred Language: Mongolian Communication Ability: Effective Air Hole Driller Required: No Beliefs That Will Affect Care: None marital status: Current Living Situation: Family Current Living Situation Comment: JUST MOVED TO [place] TO LIVE WITH DAUGHTER Other Information That Helps Us Care for You: No Feels Safe at Home: Yes Safety Concerns: Feels Safe At This Time Smoking Status: Never smoker Hx Alcohol Use: Yes Alcohol type: beer Hx Substance Use: No Allergies Allergies Allergy/AdvReac Type Severity Reaction Status Date / Time No Known Allergies Allergy Unverified 06/02/18 15:46 Home Meds Home Medications Medication Instructions Recorded Confirmed cholecalciferol (vitamin D3) 1,000 unit PO DAILY 06/02/18 06/02/18 [Vitamin D3] cyanocobalamin (vitamin B-12) 500 mcg PO DAILY 06/02/18 06/02/18 [Vitamin B-12] multivitamin 1 tab PO DAILY 06/02/18 06/02/18 psyllium husk [Metamucil] 1 tbsp PO DAILY PRN 06/02/18 06/02/18 Previous Rx's Medication Instructions Recorded paroxetine HCl 40 mg tablet 40 mg PO DAILY #30 tab 01/12/19 levothyroxine 25 mcg tablet See Rx Instructions .ROUTE 10/23/19 .COMPLEX #90 each simvastatin 10 mg tablet See Rx Instructions .ROUTE 11/03/19 .COMPLEX #90 tablet Results & Data (ED) Vital Signs Vital Signs - 24 hr 01/20/20 19:43 01/20/20 20:00 01/20/20 20:06 Temperature 39.2 C H Temperature Source Oral Pulse Rate 110 H 101 H Pulse Rate from SpO2 Sensor 110 H 101 H Respiratory Rate 29 H 31 H Blood Pressure 134/72 102/48 L Blood Pressure Mean 83 66 Pulse Oximetry 84 L 89 L Oxygen Delivery Method Room Air Non-rebreather Non-rebreather Oxygen Flow Rate Sepsis Recent Fever Within 48 Hours Yes Sepsis New/Unexplained Change in Mental Status Yes Sepsis Action Taken by Nursing No Action Required 01/20/20 20:30 01/20/20 21:00 01/20/20 21:30 Temperature 37.5 C Temperature Source Oral Pulse Rate 91 H 81 Pulse Rate from SpO2 Sensor 92 H 80 Respiratory Rate 14 32 H Blood Pressure 104/65 97/49 L Blood Pressure Mean 77 60 Pulse Oximetry 93 93 Oxygen Delivery Method Non-rebreather Non-rebreather Oxygen Flow Rate Sepsis Recent Fever Within 48 Hours Sepsis New/Unexplained Change in Mental Status Sepsis Action Taken by Nursing 01/20/20 21:36 01/20/20 21:39 01/20/20 22:01 Temperature Temperature Source Pulse Rate 79 74 70 Pulse Rate from SpO2 Sensor 82 74 70 Respiratory Rate 19 21 19 Blood Pressure 87/48 L 96/54 L 83/47 L Blood Pressure Mean 54 67 61 Pulse Oximetry 95 96 96 Oxygen Delivery Method Non-rebreather Non-rebreather Non-rebreather Oxygen Flow Rate Sepsis Recent Fever Within 48 Hours Sepsis New/Unexplained Change in Mental Status Sepsis Action Taken by Nursing 01/20/20 22:17 01/20/20 22:18 01/20/20 22:29 Temperature Temperature Source Pulse Rate 72 68 66 Pulse Rate from SpO2 Sensor 69 68 66 Respiratory Rate 15 Blood Pressure 85/47 L 93/47 L 92/51 L Blood Pressure Mean 58 64 56 Pulse Oximetry 97 98 97 Oxygen Delivery Method Non-rebreather Non-rebreather Non-rebreather Oxygen Flow Rate 15 Sepsis Recent Fever Within 48 Hours Sepsis New/Unexplained Change in Mental Status Sepsis Action Taken by Nursing 01/20/20 22:30 01/20/20 22:45 01/20/20 23:00 Temperature Temperature Source Pulse Rate 67 64 63 Pulse Rate from SpO2 Sensor 66 64 63 Respiratory Rate 26 H Blood Pressure 96/52 L 112/64 97/53 L Blood Pressure Mean 68 81 71 Pulse Oximetry 97 98 98 Oxygen Delivery Method Non-rebreather Non-rebreather Non-rebreather Oxygen Flow Rate 15 Sepsis Recent Fever Within 48 Hours Sepsis New/Unexplained Change in Mental Status Sepsis Action Taken by Nursing 01/20/20 23:13 Temperature 36.5 C Temperature Source Oral Pulse Rate Pulse Rate from SpO2 Sensor Respiratory Rate Blood Pressure Blood Pressure Mean Pulse Oximetry Oxygen Delivery Method Oxygen Flow Rate Sepsis Recent Fever Within 48 Hours Sepsis New/Unexplained Change in Mental Status Sepsis Action Taken by Nursing Laboratory Data Result diagrams: 01/20/20 20:05 01/20/20 20:05 Lab Results 01/20/20 01/20/20 01/20/20 Range/Units 20:05 20:05 20:05 WBC 11.31 H (4.8-10.8) K/uL RBC 4.39 L (4.7-6.1) M/uL Hgb 13.4 L (14.0-18.0) g/dL Hct 39.2 L (42-52) % MCV 89.3 (80-100) fL MCH 30.5 (25-34) pg MCHC 34.2 (32-36) g/dL RDW Std Deviation 45.7 (36.4-46.3) fL RDW Coeff of Riri 13.9 (11.5-14.5) % Plt Count 196 (130-400) K/uL MPV 9.8 (7.4-10.4) fL Immature Gran % (Auto) 0.3 % Neut % (Auto) 88.0 % Lymph % (Auto) 4.2 % [place] % (Auto) 7.4 % Eos % (Auto) 0.0 % Baso % (Auto) 0.1 % Neut # (Auto) 9.96 H (1.4-6.5) K/uL Lymph # (Auto) 0.47 L (1.2-3.4) K/uL [place] # (Auto) 0.84 H (0.11-0.59) K/uL Eos # (Auto) 0.00 (0-0.5) K/uL Baso # (Auto) 0.01 (0-0.2) K/uL Immature Gran # (Auto) 0.03 H (0.00-0.02) K/uL ESR (0-14) mm/hr Sodium 133 L (136-145) mmol/L Potassium 3.9 (3.5-5.1) mmol/L Chloride 99 (98-107) mmol/L Carbon Dioxide 24 (21-32) mmol/L Anion Gap 10.0 (3-11) BUN 24 H (7-18) mg/dl Creatinine 1.47 H (0.6-1.4) mg/dl Est Cr Clr Drug Dosing Not Reportable Est GFR ( Amer) 49.4 Est GFR (Non-Af Amer) 42.6 BUN/Creatinine Ratio 16.3 (10-20) Glucose 167 H (70-99) mg/dl Lactate 3.3 H* (0.4-2.0) mmol/L Calcium 8.4 L (8.5-10.1) mg/dl Magnesium 2.1 (1.8-2.4) mg/dl Ferritin 963.1 H (8-388) ng/ml Total Bilirubin 1.5 H (0.2-1) mg/dl AST 76 H (15-37) U/L ALT 39 (12-78) U/L Alkaline Phosphatase 53 (45-117) U/L Lactate Dehydrogenase (87-241) U/L Troponin I 0.191 H* (0-0.045) ng/ml C-Reactive Protein 12.40 H (0-0.29) mg/dl Total Protein 6.7 (6.4-8.2) gm/dl Albumin 2.9 L (3.4-5.0) gm/dl Globulin 3.8 (2.5-4.0) gm/dl Albumin/Globulin Ratio 0.8 L (0.9-2) Procalcitonin (0-0.5) ng/ml TSH 1.850 (0.300-4.500) uIu/ml Adenovirus (PCR) (NotDetected) B. pertussis DNA (PCR) (NotDetected) B.parapertussis DNA PCR (NotDetected) C. pneumoniae DNA (PCR) (NotDetected) Coronavirus OC43 (PCR) (NotDetected) Coronavirus HKU1 (PCR) (NotDetected) Coronavirus 229E (PCR) (NotDetected) COVID-19 PCR (Negative) Coronavirus NL63 (PCR) (NotDetected) Human Metapneumovir PCR (NotDetected) Influenza Type A (PCR) (NotDetected) Influenza Type B (PCR) (NotDetected) M. pneumoniae (PCR) (NotDetected) Parainfluenza 1 (PCR) (NotDetected) Parainfluenza 2 (PCR) (NotDetected) Parainfluenza 3 (PCR) (NotDetected) Parainfluenza 4 (PCR) (NotDetected) RSV (PCR) (NotDetected) Entero/Rhino (PCR) (NotDetected) 0701/20/20 01/20/20 Range/Units 20:05 20:05 20:05 WBC (4.8-10.8) K/uL RBC (4.7-6.1) M/uL Hgb (14.0-18.0) g/dL Hct (42-52) % MCV (80-100) fL MCH (25-34) pg MCHC (32-36) g/dL RDW Std Deviation (36.4-46.3) fL RDW Coeff of Riri (11.5-14.5) % Plt Count (130-400) K/uL MPV (7.4-10.4) fL Immature Gran % (Auto) % Neut % (Auto) % Lymph % (Auto) % [place] % (Auto) % Eos % (Auto) % Baso % (Auto) % Neut # (Auto) (1.4-6.5) K/uL Lymph # (Auto) (1.2-3.4) K/uL [place] # (Auto) (0.11-0.59) K/uL Eos # (Auto) (0-0.5) K/uL Baso # (Auto) (0-0.2) K/uL Immature Gran # (Auto) (0.00-0.02) K/uL ESR 33 H (0-14) mm/hr Sodium (136-145) mmol/L Potassium (3.5-5.1) mmol/L Chloride (98-107) mmol/L Carbon Dioxide (21-32) mmol/L Anion Gap (3-11) BUN (7-18) mg/dl Creatinine (0.6-1.4) mg/dl Est Cr Clr Drug Dosing Est GFR ( Amer) Est GFR (Non-Af Amer) BUN/Creatinine Ratio (10-20) Glucose (70-99) mg/dl Lactate (0.4-2.0) mmol/L Calcium (8.5-10.1) mg/dl Magnesium (1.8-2.4) mg/dl Ferritin (8-388) ng/ml Total Bilirubin (0.2-1) mg/dl AST (15-37) U/L ALT (12-78) U/L Alkaline Phosphatase (45-117) U/L Lactate Dehydrogenase (87-241) U/L Troponin I (0-0.045) ng/ml C-Reactive Protein (0-0.29) mg/dl Total Protein (6.4-8.2) gm/dl Albumin (3.4-5.0) gm/dl Globulin (2.5-4.0) gm/dl Albumin/Globulin Ratio (0.9-2) Procalcitonin (0-0.5) ng/ml TSH (0.300-4.500) uIu/ml Adenovirus (PCR) Not Detected (NotDetected) B. pertussis DNA (PCR) Not Detected (NotDetected) B.parapertussis DNA PCR Not Detected (NotDetected) C. pneumoniae DNA (PCR) Not Detected (NotDetected) Coronavirus OC43 (PCR) Not Detected (NotDetected) Coronavirus HKU1 (PCR) Not Detected (NotDetected) Coronavirus 229E (PCR) Not Detected (NotDetected) COVID-19 PCR POSITIVE A* (Negative) Coronavirus NL63 (PCR) Not Detected (NotDetected) Human Metapneumovir PCR Not Detected (NotDetected) Influenza Type A (PCR) Not Detected (NotDetected) Influenza Type B (PCR) Not Detected (NotDetected) M. pneumoniae (PCR) Not Detected (NotDetected) Parainfluenza 1 (PCR) Not Detected (NotDetected) Parainfluenza 2 (PCR) Not Detected (NotDetected) Parainfluenza 3 (PCR) Not Detected (NotDetected) Parainfluenza 4 (PCR) Not Detected (NotDetected) RSV (PCR) Not Detected (NotDetected) Entero/Rhino (PCR) Not Detected (NotDetected) 01/20/20 01/20/20 Range/Units 20:05 20:05 WBC (4.8-10.8) K/uL RBC (4.7-6.1) M/uL Hgb (14.0-18.0) g/dL Hct (42-52) % MCV (80-100) fL MCH (25-34) pg MCHC (32-36) g/dL RDW Std Deviation (36.4-46.3) fL RDW Coeff of Riri (11.5-14.5) % Plt Count (130-400) K/uL MPV (7.4-10.4) fL Immature Gran % (Auto) % Neut % (Auto) % Lymph % (Auto) % [place] % (Auto) % Eos % (Auto) % Baso % (Auto) % Neut # (Auto) (1.4-6.5) K/uL Lymph # (Auto) (1.2-3.4) K/uL [place] # (Auto) (0.11-0.59) K/uL Eos # (Auto) (0-0.5) K/uL Baso # (Auto) (0-0.2) K/uL Immature Gran # (Auto) (0.00-0.02) K/uL ESR (0-14) mm/hr Sodium (136-145) mmol/L Potassium (3.5-5.1) mmol/L Chloride (98-107) mmol/L Carbon Dioxide (21-32) mmol/L Anion Gap (3-11) BUN (7-18) mg/dl Creatinine (0.6-1.4) mg/dl Est Cr Clr Drug Dosing Est GFR ( Amer) Est GFR (Non-Af Amer) BUN/Creatinine Ratio (10-20) Glucose (70-99) mg/dl Lactate (0.4-2.0) mmol/L Calcium (8.5-10.1) mg/dl Magnesium (1.8-2.4) mg/dl Ferritin (8-388) ng/ml Total Bilirubin (0.2-1) mg/dl AST (15-37) U/L ALT (12-78) U/L Alkaline Phosphatase (45-117) U/L Lactate Dehydrogenase 363 H (87-241) U/L Troponin I (0-0.045) ng/ml C-Reactive Protein (0-0.29) mg/dl Total Protein (6.4-8.2) gm/dl Albumin (3.4-5.0) gm/dl Globulin (2.5-4.0) gm/dl Albumin/Globulin Ratio (0.9-2) Procalcitonin 0.11 (0-0.5) ng/ml TSH (0.300-4.500) uIu/ml Adenovirus (PCR) (NotDetected) B. pertussis DNA (PCR) (NotDetected) B.parapertussis DNA PCR (NotDetected) C. pneumoniae DNA (PCR) (NotDetected) Coronavirus OC43 (PCR) (NotDetected) Coronavirus HKU1 (PCR) (NotDetected) Coronavirus 229E (PCR) (NotDetected) COVID-19 PCR (Negative) Coronavirus NL63 (PCR) (NotDetected) Human Metapneumovir PCR (NotDetected) Influenza Type A (PCR) (NotDetected) Influenza Type B (PCR) (NotDetected) M. pneumoniae (PCR) (NotDetected) Parainfluenza 1 (PCR) (NotDetected) Parainfluenza 2 (PCR) (NotDetected) Parainfluenza 3 (PCR) (NotDetected) Parainfluenza 4 (PCR) (NotDetected) RSV (PCR) (NotDetected) Entero/Rhino (PCR) (NotDetected) Administered Medications Azithromycin 500 mg/ Dextrose 255 mls @ 127.5 mls/hr IV NOW ONE Stop: 01/21/20 03:59 Last Admin: 01/21/20 01:55 Dose: 127.5 mls/hr Documented by: [id number] Discontinued Medications Acetaminophen (Tylenol) 1,000 mg PO NOW STA Stop: 01/20/20 20:07 Last Admin: 01/20/20 20:36 Dose: 1,000 mg Documented by: [id number] Sodium Chloride (Nss 1000ml) 1,000 mls @ 125 mls/hr IV .Q8H JONH Stop: 01/21/20 04:14 Last Infusion: 01/21/20 00:35 Dose: 0 mls/hr Documented by: [id number] Infusion: 01/20/20 22:34 Dose: 0 mls/hr Documented by: [id number] Admin: 01/20/20 20:37 Dose: 125 mls/hr Documented by: [id number] Sodium Chloride (Nss 1000ml) 1,000 mls @ 999 mls/hr IV .Q1H1M ONE Stop: 01/20/20 21:48 Last Infusion: 01/20/20 23:07 Dose: 0 mls/hr Documented by: [id number] Admin: 01/20/20 22:13 Dose: 999 mls/hr Documented by: [id number] Cefepime HCl (Maxipime) 2,000 mg in 20 mls @ 5 mls/min IV NOW STA; Protocol Stop: 01/20/20 20:51 Last Admin: 01/20/20 22:25 Dose: 5 mls/min Documented by: [id number] Vancomycin HCl 2,000 mg/ (Sodium Chloride) 540 mls @ 200 mls/hr IV NOW ONE Stop: 01/21/20 00:35 Last Infusion: 01/21/20 01:07 Dose: 0 mls/hr Documented by: [id number] Admin: 01/20/20 22:25 Dose: 200 mls/hr Documented by: [id number] Sodium Chloride (Nss 1000ml) 1,000 mls @ 999 mls/hr IV .Q1H1M ONE Stop: 01/20/20 23:27 Last Infusion: 01/21/20 00:30 Dose: 0 mls/hr Documented by: [id number] Admin: 01/20/20 23:12 Dose: 999 mls/hr Documented by: [id number] Dexamethasone Sodium Phosphate (6 mg/ Syringe) 1.5 mls @ 1 mls/min IV NOW ONE Stop: 01/21/20 01:31 Last Admin: 01/21/20 01:56 Dose: 1 mls/min Documented by: [id number] Miscellaneous (Patient's Height And/Or Weight Needed) 1 ea N/A Q30M JONH Stop: 01/21/20 03:46 Last Admin: 01/21/20 02:29 Dose: 1 ea Documented by: [id number] Admin: 01/21/20 02:28 Dose: 1 ea Documented by: [id number] Admin: 01/21/20 01:57 Dose: 1 ea Documented by: [id number] Admin: 01/21/20 01:54 Dose: 1 ea Documented by: [id number] Discharge Plan Visit Data *Final* Discharge Date/Time: 01/20/20 23:59 Chief Complaint: Fever Stated Complaint: FEVER, SOB, AMS ED Provider: Yo King Discharge Problem: Sepsis, Fever, Leukocytosis, Hypoxia Patient Disposition: Admitted As Inpatient Discharge Instructions Interventions: ED Discharge Assessment Last Done: 01/20/20 23:59
[2020-01-20 21:30] LABS: Adenovirus PCR Not Detected (NotDetected); Bordetella parapertussis PCR Not Detected (NotDetected); Bordetella pertussis PCR Not Detected (NotDetected); Chlamydia pneumoniae PCR Not Detected (NotDetected); Coronavirus 229E PCR Not Detected (NotDetected); Coronavirus HKU1 PCR Not Detected (NotDetected); Coronavirus NL63 PCR Not Detected (NotDetected); Coronavirus OC43PCR Not Detected (NotDetected); Human Metapneumovirus PCR Not Detected (NotDetected); Influenza A PCR Not Detected (NotDetected); Influenza B PCR Not Detected (NotDetected); Mycoplasma pneumoniae PCR Not Detected (NotDetected); Parainfluenza Virus 1 PCR Not Detected (NotDetected); Parainfluenza Virus 2 PCR Not Detected (NotDetected); Parainfluenza Virus 3 PCR Not Detected (NotDetected); Parainfluenza Virus 4 PCR Not Detected (NotDetected); Respiratory Syncytial VirusPCR Not Detected (NotDetected); Rhinovirus/Enterovirus PCR Not Detected (NotDetected)
[2020-01-20] MEDS ORDERED: VANCOMYCIN CONSULT ACTIVE PRN (21:54)
[2020-01-20] MEDS ORDERED: VANCOMYCIN HCL 2,000 MG in SODIUM CHLORIDE 0.9% 500 ML IV ONE (21:54)
[2020-01-21] MEDS ORDERED: ONDANSETRON INJ 2 MG/ML 2 ML VIAL IV PRN (00:55)
[2020-01-21] MEDS ORDERED: NON-FORMULARY MEDICATION IV STA (00:55)
[2020-01-21] MEDS ORDERED: DEXAMETHASONE SOD INJ 4 MG/ML VIAL IV STA (00:55)
[2020-01-21] MEDS ORDERED: ACETAMINOPHEN 325 MG TAB PO PRN (00:55)
[2020-01-21 01:23] LABS: Ferritin 963.1 ng/ml (8-388)
[2020-01-21] MEDS ORDERED: DEXAMETHASONE SOD PHOSPHATE 6 MG in SYRINGE 0 ML IV ONE (01:30)
[2020-01-21] MEDS: PATIENT'S HEIGHT AND/OR WEIGHT NEEDED SCH ×4 (01:54→02:29)
[2020-01-21] MEDS ORDERED: AZITHROMYCIN 500 MG in DEXTROSE 5% 250 ML IV ONE (02:00)
[2020-01-21] MEDS ORDERED: DOXYCYCLINE HYCLATE 100 MG in DEXTROSE 5% 100 ML IV SCH (04:00)
[2020-01-21] MEDS ORDERED: REMDESIVIR 200 mg: Day 1 IV ONE (04:00)
--- NOTE | 2020-01-21 04:37 | History & Physical Report ---
Date of Service January 20, 2020 Assessment & Plan (1) COVID-19: 84yo C male with history of HTN, HLP and atrial fibrillation, recent travel from [place], [place] presenting with fevers/chills/rigors/diarrhea/SOB and hypoxia. Found to be positive for SARS-CoV-2. CXR with airspace disease more prevalent on the right. Patient hypoxic on arrival, now improved on NC currently. -Admit to PCU, maintain airborne and contact precautions -Avoid aerosolization where able - avoid nebs, NIPPV -Check procalcitonin, Ferritin, LDH, ESR, CRP and d-dimer - patient with high inflammatory markers, may be a poor prognosticator -Initiate Remdesivir therapy - 200mg IV x 1 dose now and 100mg IV daily x 5 days with possible extension to 10 days pending clinical response -Patient should be enrolled in the convalescent plasma study - this was briefly discussed with patient's daughter who seemed to be very interested -Supplemental O2 as needed to maintain oxygenation - patient doing well presently on NC. If he becomes hypoxic would transition to high flow per discussion with Pulmonary. Intermittent proning as needed to improve oxygenation -Dexamethasone 6mg IV daily -Consultation with Pulmonary team appreciated Present on Admission?: Yes (2) Sepsis: Patient febrile, tachycardic, tachypneic, hypoxic with leukocytosis. Source most likely underlying Covid-19, possibly secondary bacterial PNA as well -Awaiting procalcitonin now and repeat value on 01/22/20 -Follow cultures -Ceftriaxone and Azithromycin for possible CAP and atypical coverage -Continue IVF resuscitation Present on Admission?: Yes (3) Acquired hypothyroidism: Chronic. TSH within normal limits. Synthroid 25mcg po daily listed on his prior medication list. Medications to be confirmed with daughter tomorrow -Will hold Synthroid for now until medications are confirmed with daughter in AM Present on Admission?: Yes (4) Atrial fibrillation: Rate controlled. No anticoagulation -Telemetry monitoring Present on Admission?: Yes (5) Hypertension: Patient hypotensive in setting of sepsis -Continue to monitor Present on Admission?: Yes (6) Depression: Chronic. Patient has Paroxetine 40mg po daily listed on his medication -Will hold for now, confirm medications with family Present on Admission?: Yes (7) Hyperlipidemia: Chronic -Patient has Simvastatin listed on his home medication list -Confirm with family F/E/N - NSS administered in ED, will give additional fluids as BP requires, mild hyponatremia, continue to monitor, Heart Healthy diet as tolerated with aspiration precautions Ppx - Lovenox 40mg BID Code - DNR/DNI Dispo - Admit to PCU Present on Admission?: Yes Admission and Anticipated Discharge Date Admission Date: January 20, 2020 History of Present Illness Chief Complaint: Covid-19 infection, Sepsis, Hypoxia Primary Care Provider: Leonie Mcdaniel MD History obtained from daughter, chart review and discussion with ER staff as patient is altered and unable to provide accurate details at this time. Ned Suggs is an 84yo C male with history of HTN, HLP, Atrial fibrillation. Patient recently his . He was residing alone in [place], [place] until recently when he moved to [facility] to be closer to family. Patient arrived in [facility] yesterday afternoon around 13:00. Daughter reports that he has been in bed sleeping since then. She also reports that he has been acting quite strangely since he arrived here - making a "horse" noise, sticking his tongue out and talking in his sleep. Today around 15:30 he developed rigors, a slight cough with complaint of "something being stuck in his throat" as well as acute shortness of breath. He also had an episode of diarrhea and bowel incontinence. On arrival to the ER patient found to be febrile at 39.2, tachycardic at 110bpm, stable blood pressure. He was tachypneic at 29 bpm and saturating 77% on room air. He was placed on a non-rebreather with improvement in his saturations. He became hypotensive to 83/47 and was administered 2L NSS with improvement in blood pressure. Covid-19 PCR POSITIVE. Daughter reports that the patient attends faith every week. He also had a going away republican prior to leaving [place] where he went out to dinner with a number of friends. ER Course: Tylenol, Cefepime, Vancomycin, NSS x 2L Allergies Allergy/AdvReac Type Severity Reaction Status Date / Time No Known Allergies Allergy Unverified 06/02/18 15:46 Home Medications Home Medications Medication Instructions Recorded Confirmed Type cholecalciferol (vitamin D3) 1,000 unit PO DAILY 06/02/18 06/02/18 History [Vitamin D3] cyanocobalamin (vitamin B-12) 500 mcg PO DAILY 06/02/18 06/02/18 History [Vitamin B-12] multivitamin 1 tab PO DAILY 06/02/18 06/02/18 History psyllium husk [Metamucil] 1 tbsp PO DAILY PRN 06/02/18 06/02/18 History paroxetine HCl 40 mg tablet 40 mg PO DAILY #30 tab 01/12/19 Rx levothyroxine 25 mcg tablet See Rx Instructions .ROUTE 10/23/19 Rx .COMPLEX #90 each simvastatin 10 mg tablet See Rx Instructions .ROUTE 11/03/19 Rx .COMPLEX #90 tablet Past Med/Surg History Medical History (Updated 01/21/20 @ 04:46 by Gayatri Her DO) Depression Diverticulosis Hyperlipidemia Hypertension Surgical History (Updated 01/21/20 @ 04:30 by Gayatri Her DO) S/P appendectomy S/P cardiac pacemaker procedure S/P hernia repair Social History Preferred Language: Bulgarian Communication Ability: Effective [employer] Analyst Required: No Beliefs That Will Affect Care: None marital status: Current Living Situation: Family Current Living Situation Comment: [place]OV[place] TO LIVE WITH DAUGHTER Other Information That Helps Us Care for You: No Feels Safe at Home: Yes Safety Concerns: Feels Safe At This Time Smoking Status: Never smoker Hx Alcohol Use: Yes Alcohol type: beer Hx Substance Use: No Review of Systems Review of Systems: Unobtainable due to cognitive status Physical Exam Physical Exam: General: patient resting comfortably, NAD, non-toxic in appearance, AA&O to self, follows some commands and answers some questions Skin: warm, dry, intact, no rashes or lesions HEENT: NC/AT, PERRL, EOMI, anicteric sclera, conjunctiva without injection, external ear normal to inspection and nontender, nares patent, dry mucus membranes, dentition intact, no oropharyngeal lesions, neck supple, trachea midline, no LAD, no thyromegaly, no JVD Heart: +S1/S2, regular, no m/r/g Lungs: equal air entry bilaterally, no rales/rhonchi/wheezes Abd: +BS, soft, NT/ND, no masses/organomegaly/ascites Ext: warm, 2+ pulses in UE/LE bilaterally, no clubbing/cyanosis or edema Neuro: nonfocal, patient AA&O to self, speech intact, no facial droop, moving all extremities on command, diffuse weakness 2/5 Results & Data Results & Data ([facility]) Vital Signs (Past 12 Hours) Vital Signs Temp Pulse Pulse Resp BP BP Pulse Ox 01/21/20 03:36 36.5 C 63 20 106/67 96 01/21/20 02:23 92 01/21/20 01:25 92 01/21/20 01:00 97 01/21/20 00:53 36.4 C L 62 20 118/63 100 01/21/20 00:35 60 01/20/20 23:45 60 22 107/51 L 100 01/20/20 23:30 64 25 H 98/53 L 100 01/20/20 23:15 63 24 94/60 L 99 01/20/20 23:13 36.5 C 01/20/20 23:00 63 26 H 97/53 L 98 01/20/20 22:45 64 112/64 98 01/20/20 22:30 67 96/52 L 97 01/20/20 22:29 66 92/51 L 97 01/20/20 22:18 68 93/47 L 98 01/20/20 22:17 72 15 85/47 L 97 01/20/20 22:01 70 19 83/47 L 96 01/20/20 21:39 74 21 96/54 L 96 01/20/20 21:36 79 19 87/48 L 95 01/20/20 21:30 37.5 C 01/20/20 21:00 81 32 H 97/49 L 93 01/20/20 20:30 91 H 14 104/65 93 01/20/20 20:00 101 H 31 H 102/48 L 89 L 01/20/20 19:43 39.2 C H 110 H 29 H 134/72 84 L Laboratory Results Lab Results 01/20/20 01/20/20 01/20/20 Range/Units 20:05 20:05 20:05 WBC 11.31 H (4.8-10.8) K/uL RBC 4.39 L (4.7-6.1) M/uL Hgb 13.4 L (14.0-18.0) g/dL Hct 39.2 L (42-52) % MCV 89.3 (80-100) fL MCH 30.5 (25-34) pg MCHC 34.2 (32-36) g/dL RDW Std Deviation 45.7 (36.4-46.3) fL RDW Coeff of Riri 13.9 (11.5-14.5) % Plt Count 196 (130-400) K/uL MPV 9.8 (7.4-10.4) fL Immature Gran % (Auto) 0.3 % Neut % (Auto) 88.0 % Lymph % (Auto) 4.2 % Weakley % (Auto) 7.4 % Eos % (Auto) 0.0 % Baso % (Auto) 0.1 % Neut # (Auto) 9.96 H (1.4-6.5) K/uL Lymph # (Auto) 0.47 L (1.2-3.4) K/uL Weakley # (Auto) 0.84 H (0.11-0.59) K/uL Eos # (Auto) 0.00 (0-0.5) K/uL Baso # (Auto) 0.01 (0-0.2) K/uL Immature Gran # (Auto) 0.03 H (0.00-0.02) K/uL ESR (0-14) mm/hr Sodium 133 L (136-145) mmol/L Potassium 3.9 (3.5-5.1) mmol/L Chloride 99 (98-107) mmol/L Carbon Dioxide 24 (21-32) mmol/L Anion Gap 10.0 (3-11) BUN 24 H (7-18) mg/dl Creatinine 1.47 H (0.6-1.4) mg/dl Est Cr Clr Drug Dosing Not Reportable Est GFR ( Amer) 49.4 Est GFR (Non-Af Amer) 42.6 BUN/Creatinine Ratio 16.3 (10-20) Glucose 167 H (70-99) mg/dl Lactate 3.3 H* (0.4-2.0) mmol/L Calcium 8.4 L (8.5-10.1) mg/dl Magnesium 2.1 (1.8-2.4) mg/dl Ferritin 963.1 H (8-388) ng/ml Total Bilirubin 1.5 H (0.2-1) mg/dl AST 76 H (15-37) U/L ALT 39 (12-78) U/L Alkaline Phosphatase 53 (45-117) U/L Lactate Dehydrogenase (87-241) U/L Troponin I 0.191 H* (0-0.045) ng/ml C-Reactive Protein 12.40 H (0-0.29) mg/dl Total Protein 6.7 (6.4-8.2) gm/dl Albumin 2.9 L (3.4-5.0) gm/dl Globulin 3.8 (2.5-4.0) gm/dl Albumin/Globulin Ratio 0.8 L (0.9-2) Procalcitonin (0-0.5) ng/ml TSH 1.850 (0.300-4.500) uIu/ml Adenovirus (PCR) (NotDetected) B. pertussis DNA (PCR) (NotDetected) B.parapertussis DNA PCR (NotDetected) C. pneumoniae DNA (PCR) (NotDetected) Coronavirus OC43 (PCR) (NotDetected) Coronavirus HKU1 (PCR) (NotDetected) Coronavirus 229E (PCR) (NotDetected) COVID-19 PCR (Negative) Coronavirus NL63 (PCR) (NotDetected) Human Metapneumovir PCR (NotDetected) Influenza Type A (PCR) (NotDetected) Influenza Type B (PCR) (NotDetected) M. pneumoniae (PCR) (NotDetected) Parainfluenza 1 (PCR) (NotDetected) Parainfluenza 2 (PCR) (NotDetected) Parainfluenza 3 (PCR) (NotDetected) Parainfluenza 4 (PCR) (NotDetected) RSV (PCR) (NotDetected) Entero/Rhino (PCR) (NotDetected) 01/20/20 01/20/20 01/20/20 Range/Units 20:05 20:05 20:05 WBC (4.8-10.8) K/uL RBC (4.7-6.1) M/uL Hgb (14.0-18.0) g/dL Hct (42-52) % MCV (80-100) fL MCH (25-34) pg MCHC (32-36) g/dL RDW Std Deviation (36.4-46.3) fL RDW Coeff of Riri (11.5-14.5) % Plt Count (130-400) K/uL MPV (7.4-10.4) fL Immature Gran % (Auto) % Neut % (Auto) % Lymph % (Auto) % Weakley % (Auto) % Eos % (Auto) % Baso % (Auto) % Neut # (Auto) (1.4-6.5) K/uL Lymph # (Auto) (1.2-3.4) K/uL Weakley # (Auto) (0.11-0.59) K/uL Eos # (Auto) (0-0.5) K/uL Baso # (Auto) (0-0.2) K/uL Immature Gran # (Auto) (0.00-0.02) K/uL ESR 33 H (0-14) mm/hr Sodium (136-145) mmol/L Potassium (3.5-5.1) mmol/L Chloride (98-107) mmol/L Carbon Dioxide (21-32) mmol/L Anion Gap (3-11) BUN (7-18) mg/dl Creatinine (0.6-1.4) mg/dl Est Cr Clr Drug Dosing Est GFR ( Amer) Est GFR (Non-Af Amer) BUN/Creatinine Ratio (10-20) Glucose (70-99) mg/dl Lactate (0.4-2.0) mmol/L Calcium (8.5-10.1) mg/dl Magnesium (1.8-2.4) mg/dl Ferritin (8-388) ng/ml Total Bilirubin (0.2-1) mg/dl AST (15-37) U/L ALT (12-78) U/L Alkaline Phosphatase (45-117) U/L Lactate Dehydrogenase (87-241) U/L Troponin I (0-0.045) ng/ml C-Reactive Protein (0-0.29) mg/dl Total Protein (6.4-8.2) gm/dl Albumin (3.4-5.0) gm/dl Globulin (2.5-4.0) gm/dl Albumin/Globulin Ratio (0.9-2) Procalcitonin (0-0.5) ng/ml TSH (0.300-4.500) uIu/ml Adenovirus (PCR) Not Detected (NotDetected) B. pertussis DNA (PCR) Not Detected (NotDetected) B.parapertussis DNA PCR Not Detected (NotDetected) C. pneumoniae DNA (PCR) Not Detected (NotDetected) Coronavirus OC43 (PCR) Not Detected (NotDetected) Coronavirus HKU1 (PCR) Not Detected (NotDetected) Coronavirus 229E (PCR) Not Detected (NotDetected) COVID-19 PCR POSITIVE A* (Negative) Coronavirus NL63 (PCR) Not Detected (NotDetected) Human Metapneumovir PCR Not Detected (NotDetected) Influenza Type A (PCR) Not Detected (NotDetected) Influenza Type B (PCR) Not Detected (NotDetected) M. pneumoniae (PCR) Not Detected (NotDetected) Parainfluenza 1 (PCR) Not Detected (NotDetected) Parainfluenza 2 (PCR) Not Detected (NotDetected) Parainfluenza 3 (PCR) Not Detected (NotDetected) Parainfluenza 4 (PCR) Not Detected (NotDetected) RSV (PCR) Not Detected (NotDetected) Entero/Rhino (PCR) Not Detected (NotDetected) 01/20/20 01/20/20 Range/Units 20:05 20:05 WBC (4.8-10.8) K/uL RBC (4.7-6.1) M/uL Hgb (14.0-18.0) g/dL Hct (42-52) % MCV (80-100) fL MCH (25-34) pg MCHC (32-36) g/dL RDW Std Deviation (36.4-46.3) fL RDW Coeff of Riri (11.5-14.5) % Plt Count (130-400) K/uL MPV (7.4-10.4) fL Immature Gran % (Auto) % Neut % (Auto) % Lymph % (Auto) % Weakley % (Auto) % Eos % (Auto) % Baso % (Auto) % Neut # (Auto) (1.4-6.5) K/uL Lymph # (Auto) (1.2-3.4) K/uL Weakley # (Auto) (0.11-0.59) K/uL Eos # (Auto) (0-0.5) K/uL Baso # (Auto) (0-0.2) K/uL Immature Gran # (Auto) (0.00-0.02) K/uL ESR (0-14) mm/hr Sodium (136-145) mmol/L Potassium (3.5-5.1) mmol/L Chloride (98-107) mmol/L Carbon Dioxide (21-32) mmol/L Anion Gap (3-11) BUN (7-18) mg/dl Creatinine (0.6-1.4) mg/dl Est Cr Clr Drug Dosing Est GFR ( Amer) Est GFR (Non-Af Amer) BUN/Creatinine Ratio (10-20) Glucose (70-99) mg/dl Lactate (0.4-2.0) mmol/L Calcium (8.5-10.1) mg/dl Magnesium (1.8-2.4) mg/dl Ferritin (8-388) ng/ml Total Bilirubin (0.2-1) mg/dl AST (15-37) U/L ALT (12-78) U/L Alkaline Phosphatase (45-117) U/L Lactate Dehydrogenase 363 H (87-241) U/L Troponin I (0-0.045) ng/ml C-Reactive Protein (0-0.29) mg/dl Total Protein (6.4-8.2) gm/dl Albumin (3.4-5.0) gm/dl Globulin (2.5-4.0) gm/dl Albumin/Globulin Ratio (0.9-2) Procalcitonin 0.11 (0-0.5) ng/ml TSH (0.300-4.500) uIu/ml Adenovirus (PCR) (NotDetected) B. pertussis DNA (PCR) (NotDetected) B.parapertussis DNA PCR (NotDetected) C. pneumoniae DNA (PCR) (NotDetected) Coronavirus OC43 (PCR) (NotDetected) Coronavirus HKU1 (PCR) (NotDetected) Coronavirus 229E (PCR) (NotDetected) COVID-19 PCR (Negative) Coronavirus NL63 (PCR) (NotDetected) Human Metapneumovir PCR (NotDetected) Influenza Type A (PCR) (NotDetected) Influenza Type B (PCR) (NotDetected) M. pneumoniae (PCR) (NotDetected) Parainfluenza 1 (PCR) (NotDetected) Parainfluenza 2 (PCR) (NotDetected) Parainfluenza 3 (PCR) (NotDetected) Parainfluenza 4 (PCR) (NotDetected) RSV (PCR) (NotDetected) Entero/Rhino (PCR) (NotDetected) Diagnostic Findings CT Head - Per STAT rad: No acute intracranial abnormality. CXR - Per my interpretation: Trachea midline, pacemaker in place, airspace disease more pronounced in right lung ECG Additional Comments: Atrial sensed, ventricular paced, no acute ischemic changes Code Status & VTE Plan Code Status DNR VTE Prophylaxis Plan VTE Prophylaxis will be ordered: Yes PG Care Time/CCT Total # of Minutes Spent Total Time Spent with Patient: Total time spent is greater than 50% in coordinat ion of care (as documented) at patient's floor/unit and/or counseling patient: Coding Level of Care Code 40407 Initial Inpt Care Lvl 3 Diagnoses COVID-19 U07.1 Sepsis A41.9 Sepsis type: sepsis due to unspecified organism Sepsis acute organ dysfunction status: unspecified Acquired hypothyroidism E03.9 Atrial fibrillation I48.91 Atrial fibrillation type: unspecified Hypertension I10 Hypertension type: essential hypertension Depression F33.1 Depression Type: major depressive disorder Major depression recurrence: recurrent Active/Remission status: currently active Major depression episode severity: moderate Hyperlipidemia E78.5 Hyperlipidemia type: unspecified (1) Sepsis Sepsis type: sepsis due to unspecified organism Sepsis acute organ dysfunction status: unspecified Qualified Code(s): A41.9 - Sepsis, unspecified organism (2) Atrial fibrillation Atrial fibrillation type: unspecified Qualified Code(s): I48.91 - Unspecified atrial fibrillation (3) Hypertension Hypertension type: essential hypertension Qualified Code(s): I10 - Essential (primary) hypertension (4) Depression Depression Type: major depressive disorder Major depression recurrence: recurrent Active/Remission status: currently active Major depression episode severity: moderate Qualified Code(s): F33.1 - Major depressive disorder, recurrent, moderate (5) Hyperlipidemia Hyperlipidemia type: unspecified Qualified Code(s): E78.5 - Hyperlipidemia, unspecified
[2020-01-21] MEDS: NSS FLUSH DAYS IV SCH (06:46)
--- NOTE | 2020-01-21 07:06 | CT Scan Report ---
CT head/brain wo con CT DOSE: 994.86 mGycm HISTORY: Mental status change AMS, fever. Pt is PUI for COVID. TECHNIQUE: Multiaxial CT images of the head were performed without the use of intravenous contrast. A dose lowering technique was utilized adhering to the principles of ALARA. Comparison: 07/04/2017 Findings: The paranasal sinuses and mastoid air cells are clear. The calvarium and skull base are int act. The ventricles and sulci are within normal limits. There is no mass, hematoma, midline shift, or acute infarct. Age-related atrophy and chronic small vessel change. Impression: No acute intracranial abnormality. Age-related atrophy and chronic small vessel change. ACT 112: Negative or not required by law. The above report was generated using voice recognition software. It may contain grammatical, syntax or spelling errors. Electronically signed by: Kurt Hussein M.D. 01/21/2020 7:05 AM
[2020-01-21 07:14] LABS: Basophils # (auto) 0.01 K/uL (0-0.2); Basophils % (auto) 0.1 %; Hematocrit (blood only) 40.9 % (42-52); Hemoglobin 13.5 g/dL (14.0-18.0); Immature Granulocytes # (auto) 0.03 K/uL (0.00-0.02); Immature Granulocytes % (auto) 0.3 %; Lymphocytes % (auto) 4.3 %; Mean Corpuscular Hemoglobin 30.3 pg (25-34); Mean Corpuscular Volume 91.7 fL (80-100); Mean Platelet Volume 9.7 fL (7.4-10.4); Monocytes # (auto) 0.33 K/uL (0.11-0.59); Monocytes % (auto) 3.6 %; Neutrophils # (auto) 8.45 K/uL (1.4-6.5); Neutrophils % (auto) 91.7 %; Platelet Count 171 K/uL (130-400); RDW Coefficient of Variation 14.2 % (11.5-14.5); RDW Standard Deviation 48.1 fL (36.4-46.3); Red Blood Count 4.46 M/uL (4.7-6.1); White Blood Count 9.22 K/uL (4.8-10.8)
[2020-01-21 07:40] LABS: Albumin Level 2.5 gm/dl (3.4-5.0); BUN Creatinine Ratio 21.1 (10-20); Bilirubin Direct 0.4 mg/dl (0-0.2); Creatinine Clr Calc Pharmacy 47.9 ml/min; Est GFR (African American) 64.4; Est GFR (Non-African American) 55.5; Magnesium 2.3 mg/dl (1.8-2.4); Potassium 4.2 mmol/L (3.5-5.1)
--- NOTE | 2020-01-21 07:43 | XRay Report ---
XR chest 1V portable CLINICAL HISTORY: weakness COMPARISON STUDY: 06/04/2018 there are diffuse right lung airspace opacities. Subtle left basilar ai rspace opacities are suspected as well. Diagnostic considerations include a multifocal pneumonia vers us asymmetric pulmonary edema. Clinical and radiographic follow-up recommended. Trace pleural effusio ns are suspected. IMPRESSION: Asymmetric bilateral pulmonary airspace opacities. Diagnostic considerations include asym metric pulmonary edema versus a multifocal pneumonia. Clinical and radiographic follow-up is recommen ded. ACT 112: Negative or not required by law. Electronically signed by: Hugo Sanders M.D. 01/21/2020 7:42 AM
[2020-01-21 07:44] LABS: D Dimer 2810 ug/L FEU (0-500)
[2020-01-21 07:48] LABS: Phosphorus 3.6 mg/dl (2.5-4.9); Total Protein 6.1 gm/dl (6.4-8.2); Troponin I 0.254 ng/ml (0-0.045)
[2020-01-21] MEDS ORDERED: ENOXAPARIN INJ 40 MG/0.4 ML SYR SQ SCH (09:00)
[2020-01-21] MEDS ORDERED: PNEUMOCOCCAL POLYSACCHARIDES 25 MCG/0.5 ML VIAL/SYR IM ONE (09:00)
[2020-01-21] MEDS ORDERED: PNEUMOCOCCAL ADMINISTRATION CHARGE ONE (09:00)
[2020-01-21] MEDS: cefTRIAXone SODIUM 2,000 MG in DEXTROSE 5% 50 ML IV SCH (10:23)
[2020-01-21] MEDS: PANTOprazole 40 MG TAB PO SCH (10:23)
[2020-01-21] MEDS: ENOXAPARIN INJ 40 MG/0.4 ML SYR SQ SCH ×2 (10:26→22:30)
[2020-01-21] MEDS: dexAMETHasone 6 MG in SYRINGE 0 ML IV SCH (10:28)
--- NOTE | 2020-01-21 12:04 | Pulmonary Consultation ---
Date of Consultation January 21, 2020 Assessment & Plan (1) COVID-19: Chest x-ray 01/20/2020: Portable film, increased vascular markings, more on the right side, increased cardiac silhouette, bilateral costophrenic angles are blunted, asymmetric pulmonary opacities. Positive dual-chamber pacemaker EKG 01/20/2020: Ventricular paced rhythm, no ST-T wave changes appreciated QTC 510 --Acute hypoxic respiratory failure Patient is Covid-19 positive Patient has asymmetric groundglass opacities appreciated with vascular congestion more on the right side Positive lymphopenia. Continue with O2 saturation to keep saturation between 88 to 92%. If the patient is not able to tolerate nasal cannula next up should be high flow/BiPAP. Encourage awake proning. ESR: 33, CRP of 12.4, ferritin 963, d-dimer 2810, procalcitonin 0.11 BNP 7596 I think there is a component of heart failure as well on top of Covid-19 pneumonia. Continue with Remdesivir for total of 5 days. Please monitor LFTs while the patient is on it. We will give dexamethasone 6 mg IV for total of 10 days. Continue with PPI Procalcitonin is 0.11. Continue with antibiotics for the time being Plan: Discontinue azithromycin given that the QTC is 510 I recommend giving patient 20 mg of Lasix and have strict in and out. Incentive spirometry PPI as patient is on steroids. Case discussed with Dr. Landers (2) Sepsis: Sepsis acute organ dysfunction status: unspecified Sepsis type: sepsis due to unspecified organism Qualified Code(s): A41.9 - Sepsis, unspecified organism (3) Acute respiratory failure with hypoxia: History of Present Illness Attending Physician: Vincent Landers DO History of Present Illness 84-year-old male with past medical history of hypertension, A. fib, dyslipidemia who recently came back from [facility] currently living in [facility] was brought in by the patient's daughter because he was very lethargic complaining of cough. He had one episode of diarrhea and bowel incontinence. In the ED patient was found to be febrile 39 Celsius tachypneic and site was saturating 77% on room air he improved when he was put on oxygen. Covid-19 PCR was done which was positive. Patient was found to be hypotensive with blood pressure 83 x 47 for which she was given 2 L in the ED. Pulmonary was consulted for Covid-19 pneumonia. I personally did not see the patient. I looked at the labs and observe the patient from the glass door. Patient was comfortable breathing high teens. Not in acute distress Saturating 96% on 6 L nasal cannula. Allergies Allergy/AdvReac Type Severity Reaction Status Date / Time No Known Allergies Allergy Unverified 06/02/18 15:46 Home Medications Home Medications Medication Instructions Recorded Confirmed Type cholecalciferol (vitamin D3) 1,000 unit PO DAILY 06/02/18 06/02/18 History [Vitamin D3] cyanocobalamin (vitamin B-12) 500 mcg PO DAILY 06/02/18 06/02/18 History [Vitamin B-12] multivitamin 1 tab PO DAILY 06/02/18 06/02/18 History psyllium husk [Metamucil] 1 tbsp PO DAILY PRN 06/02/18 06/02/18 History paroxetine HCl 40 mg tablet 40 mg PO DAILY #30 tab 01/12/19 Rx levothyroxine 25 mcg tablet See Rx Instructions .ROUTE 10/23/19 Rx .COMPLEX #90 each simvastatin 10 mg tablet See Rx Instructions .ROUTE 11/03/19 Rx .COMPLEX #90 tablet Patient History Medical History (Updated 01/21/20 @ 11:56 by Jennifer Zamora MD) Depression Diverticulosis Hyperlipidemia Hypertension Surgical History (Updated 01/21/20 @ 04:30 by Gayatri Her DO) S/P appendectomy S/P cardiac pacemaker procedure S/P hernia repair Social History Preferred Language: Turkish Communication Ability: Effective [employer] Required: No Beliefs That Will Affect Care: None marital status: Current Living Situation: Family Current Living Situation Comment: [place] MOVED TO [place] TO LIVE WITH DAUGHTER Other Information That Helps Us Care for You: No Feels Safe at Home: Yes Safety Concerns: Feels Safe At This Time Smoking Status: Never smoker Hx Alcohol Use: Yes Alcohol type: beer Hx Substance Use: No Review of Systems Review of Systems: Not obtained Physical Exam Physical Exam: Deferred due to Covid-19 restriction and preservation of PPE. Please review the hospitalist's physical exam from today Results & Data Results & Data ([facility]) Vital Signs (Past 12 Hours) Vital Signs Temp Pulse Pulse Pulse Resp BP Pulse Ox 07/09/20 11:50 36.5 C 101 H 24 143/74 H 92 01/21/20 08:35 36.5 C 61 21 136/65 94 01/21/20 03:36 36.5 C 63 20 106/67 96 01/21/20 02:23 92 01/21/20 01:25 92 01/21/20 01:00 97 01/21/20 00:53 36.4 C L 62 20 118/63 100 01/21/20 00:35 60 01/21/20 07:02 01/21/20 07:02 PG Care Time/CCT Total # of Minutes Spent Total Time Spent with Patient: Total time spent is greater than 50% in coordination of care (as documented) at patient's floor/unit and/or counseling patient: [place] [address] Initial Inpt Care Lvl 3 Patient Type New Diagnoses COVID-19 U07.1 Sepsis A41.9 Sepsis acute organ dysfunction status: unspecified Sepsis type: sepsis due to unspecified organism Acute respiratory failure with hypoxia J96.01 Time Spent (min) 53
[2020-01-21] MEDS ORDERED: FUROSEMIDE 40 MG in SYRINGE 0 ML IV ONE (14:00)
[2020-01-21 15:50] LABS: Appearance Urine Clear (Clear); Bacteria Urine Automated Negative (Negative); Bilirubin Urine Negative (Negative); Blood Urine 2+ (Negative); Color Urine Dark Yellow; Epithelial Cell Urine Auto 20-30 /lpf (0-5); Glucose Urine UA Negative (Negative); Ketones Urine 1+ (Negative); Leukocyte Esterase Urine Negative (Negative); Nitrite Urine Negative (Negative); Protein Urine 2+ (Negative); RBC Urine Automated 0-4 /hpf (0-4); Specific Gravity Urine 1.033 (1.000-1.030); Urobilinogen Urine Negative (Negative)
[2020-01-21] MEDS ORDERED: AZITHROMYCIN 250 MG in DEXTROSE 5% 250 ML IV SCH (20:00)
--- NOTE | 2020-01-21 23:45 | Hospitalist Progress Note ---
Date of Service January 21, 2020 Assessment & Plan (1) Acute respiratory failure with hypoxia: due to COVID 19 currently stable on 6L will need to increase to HFNC if he starts to desaturate (2) COVID-19: 84yo C male with history of HTN, HLP and atrial fibrillation, recent travel from [place], [place] presenting with fevers/chills/rigors/diarrhea/SOB and hypoxia. Found to be positive for SARS-CoV-2. CXR with airspace disease more prevalent on the right. Patient hypoxic on arrival, now improved on NC currently. continue in negative pressure continue Dexamethasone 6mg IV daily for 10 days continue Remdesivir for 5 days Zithromax stopped due to prolonged QT consider enrollment in convalescent plasma keep lungs dry, pay attention to fluid balance, provided Lasix 40mg IV x 1 today, likely re-dose tomorrow Dr. Zamora following if he becomes more hypoxic then progress to HFNC he is DNR/DNI (3) Pulmonary edema: gave Lasix 40mg IV, recorded 1000mL out, still positive for admission want an even fluid balance no IV fluids at this time, received large amount of fluids in the ED and on admission likely repeat Lasix tomorrow Cr is stable (4) Sepsis: Patient febrile, tachycardic, tachypneic, hypoxic with leukocytosis. Source most likely underlying Covid-19, possibly secondary bacterial PNA as well - procalcitonin minimally elevated, continue Rocephin -Follow cultures (5) Acquired hypothyroidism: Chronic. TSH within normal limits. Synthroid 25mcg po daily listed on his prior medication list. Medications to be confirmed with daughter tomorrow -Will hold Synthroid for now until medications are confirmed with daughter in AM (6) Atrial fibrillation: Rate controlled. No anticoagulation -Telemetry monitoring (7) Hypertension: Patient hypotensive in setting of sepsis -Continue to monitor (8) Depression: Chronic. Patient has Paroxetine 40mg po daily listed on his medication -Will hold for now, confirm medications with family (9) Hyperlipidemia: Chronic -Patient has Simvastatin listed on his home medication list -Confirm with family F/E/N - NSS administered in ED, will give additional fluids as BP requires, mild hyponatremia, continue to monitor, Heart Healthy diet as tolerated with aspiration precautions Ppx - Lovenox 40mg BID Code - DNR/DNI Dispo - Admit to PCU Admission and Anticipated Discharge Date Admission Date: January 20, 2020 Subjective patient breathing well, says he is comfortable much of history is difficult because he is hard of hearing he does not quite understand that he has COVID 19 he says that he feels like he will get better, but if he doesn't get better he says he is okay with it, he has lived a long life reviewed labs, WBC 9k, Hb 13.5, D dimer up at 2810 Cr 1.18, electrolytes stable, BNP elevated at > [address] Zamora, appreciate his input, stop Zithromax due to QT he has some pulmonary edema on CXR and BNP elevated, will give a dose of Lasix only 1000mL out for the day after Lasix, positive fluid balance Review of Systems Review of Systems: All systems reviewed & are unremarkable except as noted in Subjective Physical Exam Constitutional: well developed and well nourished; no acute distress Eyes: PERRL, conjunctivae normal, anicteric sclerae ENMT: external ear and nose normal, oropharynx normal Ears: + hearing impairment Neck: trachea midline, no thyromegaly Respiratory: normal respiratory effort; no labored breathing, no cough and not tachypneic Auscultation: + crackles (bilaterally); no rhonchi and no wheezes Cardiovascular: RRR, no murmur, no edema Gastrointestinal (Abdomen): normal bowel sounds, soft, nontender, no hepatosplenomegaly Musculoskeletal: no cyanosis or clubbing, extremities motor strength 5/5 Skin: no rashes, warm and dry Neurologic: patellar DTR's 2+ bilat, sensation intact and PERRL, EOMI, accommodation nl, no face palsy, no dysarthria Psychiatric: A+Ox3, euthymic affect Lymphatic: no cervical or axillary lymphadenopathy Results & Data Results & Data ([facility]) Vital Signs (Past 12 Hours) Vital Signs Temp Pulse Pulse Resp BP Pulse Ox 01/21/20 20:28 36.5 C 77 22 107/62 91 01/21/20 16:53 38.1 C H 99 H 26 H 146/68 H 01/21/20 15:53 36.9 C 103 H 24 151/120 H 89 L 01/21/20 11:50 36.5 C 101 H 24 143/74 H 92 Laboratory Results Laboratory Results - last 24 hr 01/20/20 01/20/20 01/20/20 20:05 20:05 20:05 WBC RBC Hgb Hct MCV MCH MCHC RDW Std Deviation RDW Coeff of Riri Plt Count MPV Immature Gran % (Auto) Neut % (Auto) Lymph % (Auto) [place] % (Auto) Eos % (Auto) Baso % (Auto) Neut # (Auto) Lymph # (Auto) [place] # (Auto) Eos # (Auto) Baso # (Auto) Immature Gran # (Auto) ESR 33 H D-Dimer Sodium Potassium Chloride Carbon Dioxide Anion Gap BUN Creatinine Est Cr Clr Drug Dosing Est GFR ( Amer) Est GFR (Non-Af Amer) BUN/Creatinine Ratio Glucose Lactate Calcium Phosphorus Magnesium Ferritin 963.1 H Total Bilirubin Direct Bilirubin AST ALT Alkaline Phosphatase Lactate Dehydrogenase 363 H Troponin I C-Reactive Protein 12.40 H NT-Pro-B Natriuret Pep Total Protein Albumin Procalcitonin Urine Color Urine Appearance Urine pH Ur Specific [place] Urine Protein Urine Glucose (UA) Urine Ketones Urine Blood Urine Nitrite Urine Bilirubin Urine Urobilinogen Ur Leukocyte Esterase Urine WBC (Auto) Urine RBC (Auto) U Hyaline Cast (Auto) U Epithel Cells (Auto) Urine Bacteria (Auto) 01/20/20 01/21/20 01/21/20 20:05 07:02 07:02 WBC 9.22 RBC 4.46 L Hgb 13.5 L Hct 40.9 L MCV 91.7 MCH 30.3 MCHC 33.0 RDW Std Deviation 48.1 H RDW Coeff of Riri 14.2 Plt Count 171 MPV 9.7 Immature Gran % (Auto) 0.3 Neut % (Auto) 91.7 Lymph % (Auto) 4.3 [place]aine % (Auto) 3.6 Eos % (Auto) 0.0 Baso % (Auto) 0.1 Neut # (Auto) 8.45 H Lymph # (Auto) 0.40 L [place] # (Auto) 0.33 Eos # (Auto) 0.00 Baso # (Auto) 0.01 Immature Gran # (Auto) 0.03 H ESR D-Dimer 2810 H* Sodium Potassium Chloride Carbon Dioxide Anion Gap BUN Creatinine Est Cr Clr Drug Dosing Est GFR ( Amer) Est GFR (Non-Af Amer) BUN/Creatinine Ratio Glucose Lactate Calcium Phosphorus Magnesium Ferritin Total Bilirubin Direct Bilirubin AST ALT Alkaline Phosphatase Lactate Dehydrogenase Troponin I C-Reactive Protein NT-Pro-B Natriuret Pep Total Protein Albumin Procalcitonin 0.11 Urine Color Urine Appearance Urine pH Ur Specific [place] Urine Protein Urine Glucose (UA) Urine Ketones Urine Blood Urine Nitrite Urine Bilirubin Urine Urobilinogen Ur Leukocyte Esterase Urine WBC (Auto) Urine RBC (Auto) U Hyaline Cast (Auto) U Epithel Cells (Auto) Urine Bacteria (Auto) 01/21/20 01/21/20 01/21/20 07:02 07:02 07:02 WBC RBC Hgb Hct MCV MCH MCHC RDW Std Deviation RDW Coeff of Riri Plt Count MPV Immature Gran % (Auto) Neut % (Auto) Lymph % (Auto) [place] % (Auto) Eos % (Auto) Baso % (Auto) Neut # (Auto) Lymph # (Auto) [place] # (Auto) Eos # (Auto) Baso # (Auto) Immature Gran # (Auto) ESR D-Dimer Sodium 137 Potassium 4.2 Chloride 105 Carbon Dioxide 28 Anion Gap 4.0 BUN 25 H Creatinine 1.18 Est Cr Clr Drug Dosing 47.9 Est GFR ( Amer) 64.4 Est GFR (Non-Af Amer) 55.5 BUN/Creatinine Ratio 21.1 H Glucose 143 H Lactate 1.1 Calcium 8.0 L Phosphorus 3.6 Magnesium 2.3 Ferritin Total Bilirubin 1.0 D Direct Bilirubin 0.4 H AST 65 H ALT 37 Alkaline Phosphatase 50 Lactate Dehydrogenase Troponin I 0.254 H* C-Reactive Protein NT-Pro-B Natriuret Pep 7596 H Total Protein 6.1 L Albumin 2.5 L Procalcitonin Urine Color Urine Appearance Urine pH Ur Specific [place] Urine Protein Urine Glucose (UA) Urine Ketones Urine Blood Urine Nitrite Urine Bilirubin Urine Urobilinogen Ur Leukocyte Esterase Urine WBC (Auto) Urine RBC (Auto) U Hyaline Cast (Auto) U Epithel Cells (Auto) Urine Bacteria (Auto) 01/21/20 01/21/20 12:58 14:31 WBC RBC Hgb Hct MCV MCH MCHC RDW Std Deviation RDW Coeff of Riri Plt Count MPV Immature Gran % (Auto) Neut % (Auto) Lymph % (Auto) [place] % (Auto) Eos % (Auto) Baso % (Auto) Neut # (Auto) Lymph # (Auto) [place] # (Auto) Eos # (Auto) Baso # (Auto) Immature Gran # (Auto) ESR D-Dimer Sodium Potassium Chloride Carbon Dioxide Anion Gap BUN Creatinine Est Cr Clr Drug Dosing Est GFR ( Amer) Est GFR (Non-Af Amer) BUN/Creatinine Ratio Glucose Lactate Calcium Phosphorus Magnesium Ferritin Total Bilirubin Direct Bilirubin AST ALT Alkaline Phosphatase Lactate Dehydrogenase Troponin I 0.186 H* C-Reactive Protein NT-Pro-B Natriuret Pep Total Protein Albumin Procalcitonin Urine Color Dark Yellow Urine Appearance Clear Urine pH 5.0 Ur Specific [place] 1.033 H Urine Protein 2+ H Urine Glucose (UA) Negative Urine Ketones 1+ H Urine Blood 2+ H Urine Nitrite Negative Urine Bilirubin Negative Urine Urobilinogen Negative Ur Leukocyte Esterase Negative Urine WBC (Auto) 1-5 Urine RBC (Auto) 0-4 U Hyaline Cast (Auto) 5-10 H U Epithel Cells (Auto) 20-30 H Urine Bacteria (Auto) Negative Medications Administered Current Inpatient Medications Acetaminophen (Tylenol) 650 mg PO Q4H PRN PRN Reason: Pain or Fever Stop: 02/20/20 00:54 Last Admin: 01/21/20 17:01 Dose: 650 mg Documented by: Enoxaparin Sodium (Lovenox) 40 mg SQ Q12H JONH Stop: 02/20/20 07:59 Last Admin: 01/21/20 22:30 Dose: 40 mg Documented by: Dexamethasone 6 mg/ Syringe 1.5 mls @ 1 mls/min IV DAILY [facility] Stop: 02/20/20 08:59 Last Admin: 01/21/20 10:28 Dose: 1 mls/min Documented by: Ceftriaxone Sodium 2,000 mg/ (Dextrose) 70 mls @ 100 mls/hr IV Q24H JONH; Protocol Stop: 01/28/20 08:59 Last Infusion: 01/21/20 12:34 Dose: Infused Documented by: Remdesivir 100 mg/ Sodium (Chloride) 250 mls @ 250 mls/hr IV Q24H [facility]; Protocol Stop: 01/25/20 04:59 Ondansetron HCl (Zofran) 4 mg IV Q6H PRN PRN Reason: Nausea Stop: 02/20/20 00:54 Pantoprazole Sodium (Protonix) 40 mg PO QAM [facility] Stop: 02/20/20 09:59 Last Admin: 01/21/20 10:23 Dose: 40 mg Documented by: Sodium Chloride (Sodium Chloride Flush) 30 ml IV Q24H JONH Stop: 01/30/20 04:01 Last Admin: 01/21/20 06:46 Dose: 30 ml Documented by: PG Care Time/CCT Total # of Minutes Spent Total Time Spent with Patient: Total time spent is greater than 50% in coordination of care (as documented) at patient's floor/unit and/or counseling patient: Coding Level of Care Code 02170 Subseq Hosp Care Lvl 3 Diagnoses Acute respiratory failure with hypoxia J96.01 COVID-19 U07.1 Pulmonary edema J81.1 Sepsis A41.9 Sepsis acute organ dysfunction status: unspecified Sepsis type: sepsis due to unspecified organism Acquired hypothyroidism E03.9 Atrial fibrillation I48.91 Atrial fibrillation type: unspecified Hypertension I10 Hypertension type: essential hypertension Depression F33.1 Active/Remission status: currently active Depression Type: major depressive disorder Major depression episode severity: moderate Major depression recurrence: recurrent Hyperlipidemia E78.5 Hyperlipidemia type: unspecified (1) Atrial fibrillation Atrial fibrillation type: unspecified Qualified Code(s): I48.91 - Unspecified atrial fibrillation (2) Depression Active/Remission status: currently active Depression Type: major depressive disorder Major depression episode severity: moderate Major depression recurre nce: recurrent Qualified Code(s): F33.1 - Major depressive disorder, recurrent, moderate (3) Hyperlipidemia Hyperlipidemia type: unspecified Qualified Code(s): E78.5 - Hyperlipidemia, unspecified (4) Sepsis Sepsis acute organ dysfunction status: unspecified Sepsis type: sepsis due to unspecified organism Qualified Code(s): A41.9 - Sepsis, unspecified organism (5) Hypertension Hypertension type: essential hypertension Qualified Code(s): I10 - Essential (primary) hypertension
[2020-01-22] MEDS ORDERED: REMDESIVIR 100 MG IV SCH (04:00)
--- NOTE | 2020-01-22 04:30 | Electrocardiogram Report ---
Test Reason : Blood Pressure : / mmHG Vent. Rate : 091 BPM Atrial Rate : 091 BPM P-R Int : 190 ms QRS Dur : 178 ms QT Int : 416 ms P-R-T Axes : 055 -86 079 degrees QTc Int : 511 ms Atrial-sensed ventricular-paced rhythm Abnormal ECG When compared with ECG of 03-JUN-2018 17:57, Vent. rate has increased BY 30 BPM Atrial pacing is no longer present Confirmed by Yasir Kerr ([id number]) on 01/22/2020 4:30:30 AM Referred By: REFERRED SELF Confirmed By:Yasir Kerr
[2020-01-22] MEDS: REMDESIVIR 100mg: Days 2-5 IV SCH (04:40)
[2020-01-22] MEDS: NSS FLUSH DAYS IV SCH (06:03)
[2020-01-22] MEDS: ENOXAPARIN INJ 40 MG/0.4 ML SYR SQ SCH ×2 (07:55→21:00)
[2020-01-22] MEDS: PANTOprazole 40 MG TAB PO SCH (07:55)
[2020-01-22] MEDS: dexAMETHasone 6 MG in SYRINGE 0 ML IV SCH (07:55)
[2020-01-22] MEDS: cefTRIAXone SODIUM 2,000 MG in DEXTROSE 5% 50 ML IV SCH (07:55)
[2020-01-22 08:22] LABS: Creatinine Clr Calc Pharmacy 40.9 ml/min; Est GFR (African American) 53.3
[2020-01-22] MEDS: DOXYCYCLINE HYCLATE 100 MG in DEXTROSE 5% 100 ML IV SCH ×2 (09:02→20:59)
--- NOTE | 2020-01-22 10:46 | Pulmonology Progress Note ---
Date of Service January 22, 2020 Assessment & Plan (1) COVID-19: Chest x-ray 01/20/2020: Portable film, increased vascular markings, more on the right side, increased cardiac silhouette, bilateral costophrenic angles are blunted, asymmetric pulmonary opacities. Positive dual-chamber pacemaker EKG 01/20/2020: Ventricular paced rhythm, no ST-T wave changes appreciated QTC 510 --Acute hypoxic respiratory failure Patient is Covid-19 positive Patient has asymmetric groundglass opacities appreciated with vascular congestion more on the right side Positive lymphopenia. Continue with O2 saturation to keep saturation between 88 to 92%. If the patient is not able to tolerate nasal cannula next up should be high flow/BiPAP. Encourage awake proning. ESR: 33, CRP of 12.4, ferritin 963, d-dimer 2810, procalcitonin 0.11 --> 1.82 BNP 7596 01/21/2020 I think there is a component of heart failure as well on top of Covid-19 pneumonia. Continue with Remdesivir for total of 5 days. Please monitor LFTs while the patient is on it. We will give dexamethasone 6 mg IV for total of 10 days. Continue with PPI Procalcitonin is 0.11. Continue with antibiotics for the time being Plan: Strict in and out. Keep patient euvolemic to slightly positive. Repeat ESR/CRP/ferritin/d-dimer tomorrow Continue with antibiotics and remdesivir. Continue with dexamethasone with PPI Patient is a bit difficult as he does not understand and follow instructions as needed. Case was discussed with nurse. (2) Sepsis: Sepsis acute organ dysfunction status: unspecified Sepsis type: sepsis due to unspecified organism Qualified Code(s): A41.9 - Sepsis, unspecified organism (3) Acute respiratory failure with hypoxia: Admission and Anticipated Discharge Date Admission Date: January 20, 2020 Subjective Patient was seen from the glass window of the door. Patient was comfortable not in acute distress. Respiratory rate was mid teens. Patient did not have oxygen on at that time. His saturation was 86% but it was not a good waveform. Review of Systems Review of Systems: Not obtained Physical Exam Physical Exam: Deferred due to Covid-19 restriction and preservation of PPE. Please review the hospitalist's physical exam from today Results & Data Results & Data ([facility]) Vital Signs (Past 12 Hours) Vital Signs Temp Pulse Pulse Resp BP Pulse Ox Pulse Ox 01/22/20 08:00 36.9 C 72 103 H 16 157/72 H 91 01/22/20 06:40 37.4 C 102 H 20 119/67 84 L 01/22/20 01:30 37.4 C 87 20 161/85 H 91 01/22/20 00:55 94 01/21/20 07:02 01/22/20 07:20 PG Care Time/CCT Total # of Minutes Spent Total Time Spent with Patient: Total time spent is greater than 50% in coordination of care (as documented) at patient's floor/unit and/or counseling patient: Coding Level of Care Code 74452 Subseq Hosp Care Lvl 2 Diagnoses COVID-19 U07.1 Sepsis A41.9 Sepsis acute organ dysfunction status: unspecified Sepsis type: sepsis due to unspecified organism Acute respiratory failure with hypoxia J96.01
--- NOTE | 2020-01-22 22:44 | Hospitalist Progress Note ---
Date of Service January 22, 2020 Assessment & Plan (1) Acute respiratory failure with hypoxia: due to COVID 19 currently stable on 6-7L nasal cannula. He has not clinically deteriorated today. difficult to do prone position as his oxygen gets removed. will need to increase to HFNC if he starts to desaturate (2) COVID-19: 84yo C male with history of HTN, HLP and atrial fibrillation, recent travel from [place], [place] presenting with fevers/chills/rigors/diarrhea/SOB and hypoxia. Found to be positive for SARS-CoV-2. CXR with airspace disease more prevalent on the right. Patient hypoxic on arrival, now improved on NC currently. continue in negative pressure continue Dexamethasone 6mg IV daily for 10 days continue Remdesivir for 5 days Zithromax stopped due to prolonged QT consider enrollment in convalescent plasma keep lungs dry, pay attention to fluid balance, provided Lasix 40mg IV x 1 today, likely re-dose tomorrow Dr. Zamora following if he becomes more hypoxic then progress to HFNC he is DNR/DNI (3) Pulmonary edema: gave Lasix 40mg IV, recorded 1000mL out, still positive for admission want an even fluid balance no IV fluids at this time, received large amount of fluids in the ED and on admission Cr is stable (4) Sepsis: Patient febrile, tachycardic, tachypneic, hypoxic with leukocytosis. Source most likely underlying Covid-19, possibly secondary bacterial PNA as well - procalcitonin minimally elevated, continue Rocephin -Follow cultures (5) Acquired hypothyroidism: Chronic. TSH within normal limits. Synthroid 25mcg po daily listed on his prior medication list. Medications to be confirmed with daughter tomorrow -Will hold Synthroid for now until medications are confirmed with daughter in AM (6) Atrial fibrillation: Rate controlled. No anticoagulation -Telemetry monitoring (7) Hypertension: Patient hypotensive in setting of sepsis -Continue to monitor (8) Depression: Chronic. Patient has Paroxetine 40mg po daily listed on his medication -Will hold for now, confirm medications with family (9) Hyperlipidemia: Chronic -Patient has Simvastatin listed on his home medication list -Confirm with family F/E/N - NSS administered in ED, will give additional fluids as BP requires, mild hyponatremia, continue to monitor, Heart Healthy diet as tolerated with aspiration precautions Ppx - Lovenox 40mg BID Code - DNR/DNI Dispo - Admit to PCU Admission and Anticipated Discharge Date Admission Date: January 20, 2020 Subjective Patient reports breathing btter today. However, discussed with nursing and he appears confused. I had discussion with daughter who reports that bertha moved from [place] as his family bought him a house in [place]. He has a nearing aid that she brought in, she is concerned that he may not be wearing it. She could only find one as it appears he lost the other one in [place]. He was living by himself, but having multiple falls. She feels like he may require placement, hopefully temporary, once he improves. Review of Systems Review of Systems: All systems reviewed & are unremarkable except as noted in HPI & below Physical Exam Physical Exam: Constitutional: well developed and well nourished; no acute distress Eyes: PERRL, conjunctivae normal, anicteric sclerae ENMT: external ear and nose normal, oropharynx normal Ears: + hearing impairment Neck: trachea midline, no thyromegaly Respiratory: normal respiratory effort; no labored breathing, no cough and not tachypneic Auscultation: + crackles (bilaterally); no rhonchi and no wheezes Cardiovascular: RRR, no murmur, no edema Gastrointestinal (Abdomen): normal bowel sounds, soft, nontender, no hepatosplenomegaly Musculoskeletal: no cyanosis or clubbing, extremities motor strength 5/5 Skin: no rashes, warm and dry Neurologic: patellar DTR's 2+ bilat, sensation intact and PERRL, EOMI, accommodation nl, no face palsy, no dysarthria Psychiatric: Awake and alert, euthymic affect Lymphatic: no cervical or axillary lymphadenopathy Results & Data Results & Data ([facility]) Vital Signs (Past 12 Hours) Vital Signs Temp Pulse Pulse Resp BP Pulse Ox 01/22/20 21:08 36.5 C 60 16 126/63 88 L 01/22/20 16:00 72 01/22/20 15:27 36.9 C 63 17 110/59 L 94 PG Care Time/CCT Total # of Minutes Spent Total Time Spent with Patient: Total time spent is greater than 50% in coordination of care (as documented) at patient's floor/unit and/or counseling patient: Coding Level of Care Code 17317 Subseq Hosp Care Lvl 3 Diagnoses Acute respiratory failure with hypoxia J96.01 COVID-19 U07.1 Pulmonary edema J81.1 Sepsis A41.9 Sepsis acute organ dysfunction status: unspecified Sepsis type: sepsis due to unspecified organism Acquired hypothyroidism E03.9 Atrial fibrillation I48.91 Atrial fibrillation type: unspecified Hypertension I10 Hypertension type: essential hypertension Depression F33.1 Active/Remission status: currently active Depression Type: major depressive disorder Major depression episode severity: moderate Major depression recurrence: recurrent Hyperlipidemia E78.5 Hyperlipidemia type: unspecified Time Spent (min) 35 (1) Atrial fibrillation Atrial fibrillation type: unspecified Qualified Code(s): I48.91 - Unspecified atrial fibrillation (2) Depression Active/Remission status: currently active Depression Type: major depressive disorder Major depression episode severity: moderate Major depression recurrence: recurrent Qualified Code(s): F33.1 - Major depressive disorder, recurrent, moderate (3) Hyperlipidemia Hyperlipidemia type: unspecified Qualified Code(s): E78.5 - Hyperlipidemia, unspecified (4) Sepsis Sepsis acute organ dysfunction status: unspecified Sepsis type: sepsis due to unspecified organism Qualified Code(s): A41.9 - Sepsis, unspecified organism (5) Hypertension Hypertension type: essential hypertension Qualified Code(s): I10 - Essential (primary) hypertension
[2020-01-23] MEDS: NSS FLUSH DAYS IV SCH (04:03)
[2020-01-23] MEDS: REMDESIVIR 100mg: Days 2-5 IV SCH (04:03)
[2020-01-23 07:06] LABS: Creatinine Clr Calc Pharmacy 57.6 ml/min; Est GFR (African American) 80.6; Est GFR (Non-African American) 69.5
[2020-01-23] MEDS: ENOXAPARIN INJ 40 MG/0.4 ML SYR SQ SCH ×2 (08:33→21:37)
[2020-01-23] MEDS: DOXYCYCLINE HYCLATE 100 MG in DEXTROSE 5% 100 ML IV SCH ×2 (08:33→21:37)
[2020-01-23] MEDS: cefTRIAXone SODIUM 2,000 MG in DEXTROSE 5% 50 ML IV SCH (08:33)
[2020-01-23] MEDS: PANTOprazole 40 MG TAB PO SCH (08:33)
[2020-01-23] MEDS: dexAMETHasone 6 MG in SYRINGE 0 ML IV SCH (08:34)
--- NOTE | 2020-01-23 09:12 | XRay Report ---
XR chest 1V portable CLINICAL HISTORY: Abnormal chest x-ray. Follow-up study. COMPARISON STUDY: 01/20/2020 FINDINGS: The heart remains enlarged. With aortic tortuosity/ectasia. 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 There is improvement of the diffuse right lung airspace opacities with progressive left basilar airspace opacities. Diagnostic considerations remain pulmonary edema ve rsus a multifocal pneumonia IMPRESSION: 1. Persistent cardiomegaly 2. Improving diffuse right lung airspace opacities with progressive left basilar airspace opacities ACT 112: Negative or not required by law. Electronically signed by: Hugo Sanders M.D. 01/23/2020 9:11 AM
--- NOTE | 2020-01-23 16:33 | Hospitalist Progress Note ---
Date of Service January 23, 2020 Assessment & Plan (1) Acute respiratory failure with hypoxia: due to COVID 19 currently stable on 6-7L nasal cannula. difficult to do prone position as his oxygen gets removed. will need to increase to HFNC if he starts to desaturate (2) COVID-19: 84yo C male with history of HTN, HLP and atrial fibrillation, recent travel from [place], [place] presenting with fevers/chills/rigors/diarrhea/SOB and hypoxia. Found to be positive for SARS-CoV-2. CXR with airspace disease more prevalent on the right. Patient hypoxic on arrival, now improved on NC currently. continue in negative pressure continue Dexamethasone 6mg IV daily for 10 days continue Remdesivir for 5 days Zithromax stopped due to prolonged QT consider enrollment in convalescent plasma keep lungs dry, pay attention to fluid balance, provided Lasix 40mg IV x 1 today, likely re-dose tomorrow Dr. Zamora following if he becomes more hypoxic then progress to HFNC he is DNR/DNI (3) Pulmonary edema: gave Lasix 40mg IV, recorded 1000mL out, still positive for admission want an even fluid balance no IV fluids at this time, received large amount of fluids in the ED and on admission Cr is stable (4) Sepsis: Patient febrile, tachycardic, tachypneic, hypoxic with leukocytosis. Source most likely underlying Covid-19, possibly secondary bacterial PNA as well - procalcitonin minimally elevated, continue Rocephin -Follow cultures (5) Acquired hypothyroidism: Chronic. TSH within normal limits. Synthroid 25mcg po daily listed on his prior medication list. Medications to be confirmed with daughter tomorrow -Will hold Synthroid for now until medications are confirmed with daughter in AM (6) Atrial fibrillation: Rate controlled. No anticoagulation -Telemetry monitoring (7) Hypertension: Patient hypotensive in setting of sepsis -Continue to monitor (8) Depression: Chronic. Patient has Paroxetine 40mg po daily listed on his medication -Will hold for now, confirm medications with family (9) Hyperlipidemia: Chronic -Patient has Simvastatin listed on his home medication list -Confirm with family F/E/N - NSS administered in ED, will give additional fluids as BP requires, mild hyponatremia, continue to monitor, Heart Healthy diet as tolerated with aspiration precautions Ppx - Lovenox 40mg BID Code - DNR/DNI Dispo - Admit to PCU Admission and Anticipated Discharge Date Admission Date: January 20, 2020 Subjective Pt is stable. Intermittent confusion and very [facility]. Tolerating PO. No n/v/d. No chest pain or SOB on NC. States he has been sleeping most of the day. Feels improving. Physical Exam Constitutional: WD/WN, vitals as above Eyes: normal visual serrano by confrontation and + anicteric sclerae Neck: normal visual inspection and trachea midline Respiratory: normal respiratory effort; no respiratory distress Auscultation: + crackles; no wheezes Cardiovascular: Rate/Rhythm: regular rate and regular rhythm Gastrointestinal (Abdomen): Inspection/Auscultation: abdomen not distended Percussion/Palpation: abdomen soft; abdomen nontender Musculoskeletal: Head/Neck/Chest: normocephalic and head atraumatic negative for edema, peripheral pulses intact Skin: no rashes, warm and dry Neurologic: awake and + confused Speech / Cognition: normal speech Psychiatric: A+Ox3, euthymic affect Results & Data Results & Data ([facility]) Vital Signs (Past 12 Hours) Vital Signs Temp Pulse Resp BP Pulse Ox 01/23/20 15:08 36.7 C 63 20 98/63 L 98 01/23/20 12:33 36.5 C 62 18 129/69 89 L 01/23/20 08:21 36.4 C L 61 20 120/71 89 L PG Care Time/CCT Total # of Minutes Spent Total Time Spent with Patient: Total time spent is greater than 50% in coordination of care (as documented) at patient's floor/unit and/or counseling patient: Coding Level of Care Code 39940 Subseq Hosp Care Lvl 3 Diagnoses Acute respiratory failure with hypoxia J96.01 COVID-19 U07.1 Pulmonary edema J81.1 Sepsis A41.9 Sepsis acute organ dysfunction status: unspecified Sepsis type: sepsis due to unspecified organism Acquired hypothyroidism E03.9 Atrial fibrillation I48.91 Atrial fibrillation type: unspecified Hypertension I10 Hypertension type: essential hypertension Depression F33.1 Active/Remission status: currently active Depression Type: major depressive disorder Major depression episode severity: moderate Major depression recurrence: recurrent Hyperlipidemia E78.5 Hyperlipidemia type: unspecified (1) Atrial fibrillation Atrial fibrillation type: unspecified Qualified Code(s): I48.91 - Unspecified atrial fibrillation (2) Depression Active/Remission status: currently active Depression Type: major depressive disorder Major depression episode severity: moderate Major depression recurrence: recurrent Qualified Code(s): F33.1 - Major depressive disorder, recurrent, moderate (3) Hyperlipidemia Hyperlipidemia type: unspecified Qualified Code(s): E78.5 - Hyperlipidemia, unspecified (4) Sepsis Sepsis acute organ dysfunction status: unspecified Sepsis type: sepsis due to unspecified organism Qualified Code(s): A41.9 - Sepsis, unspecified organism (5) Hypertension Hypertension type: essential hypertension Qualified Code(s): I10 - Essential (primary) hypertension
[2020-01-24] MEDS: NSS FLUSH DAYS IV SCH (03:50)
[2020-01-24] MEDS: REMDESIVIR 100mg: Days 2-5 IV SCH (03:50)
[2020-01-24 07:10] LABS: Creatinine Clr Calc Pharmacy 62.1 ml/min; Est GFR (African American) 88.1
[2020-01-24] MEDS: cefTRIAXone SODIUM 2,000 MG in DEXTROSE 5% 50 ML IV SCH (09:12)
[2020-01-24] MEDS: PANTOprazole 40 MG TAB PO SCH (09:12)
[2020-01-24] MEDS: ENOXAPARIN INJ 40 MG/0.4 ML SYR SQ SCH ×2 (09:12→21:43)
[2020-01-24] MEDS: DOXYCYCLINE HYCLATE 100 MG in DEXTROSE 5% 100 ML IV SCH ×2 (09:12→21:42)
[2020-01-24] MEDS: dexAMETHasone 6 MG in SYRINGE 0 ML IV SCH (09:25)
--- NOTE | 2020-01-24 11:04 | Pulmonology Progress Note ---
Date of Service January 24, 2020 Assessment & Plan (1) COVID-19: Chest x-ray 01/20/2020: Portable film, increased vascular markings, more on the right side, increased cardiac silhouette, bilateral costophrenic angles are blunted, asymmetric pulmonary opacities. Positive dual-chamber pacemaker EKG 01/20/2020: Ventricular paced rhythm, no ST-T wave changes appreciated QTC 510 --Acute hypoxic respiratory failure Patient is Covid-19 positive Patient has asymmetric groundglass opacities appreciated with vascular congestion more on the right side Positive lymphopenia. Continue with O2 saturation to keep saturation between 88 to 92%. If the patient is not able to tolerate nasal cannula next up should be high flow. Encourage awake proning. ESR: 33, CRP of 12.4, ferritin 963, d-dimer 2810, procalcitonin 0.11 --> 1.82 BNP 7596 01/21/2020, 8281 01/23/20 I think there is a component of heart failure as well on top of Covid-19 pneumonia. Continue with Remdesivir for total of 5 days. Please monitor LFTs while the patient is on it. Continue with dexamethasone 6 mg IV for total of 10 days. Continue with PPI Procalcitonin is 0.11. Continue with antibiotics for the time being Plan: Patient respiratory status has been stable since time of admission. Is saturating well on 6 L nasal cannula did not need it to be escalated. Is tolerating remdesivir as well as dexamethasone. Recommend continuing remdesivir for total of 5 days and dexamethasone for total of 10 days. Discontinue antibiotics after 5 days. Continue with diuretics on as-needed basis to keep the patient euvolemic to negative balance. Given the clinical stability in the respiratory status of the patient pulmonary will sign off. Recall if needed. (2) Sepsis: Sepsis acute organ dysfunction status: unspecified Sepsis type: sepsis due to unspecified organism Qualified Code(s): A41.9 - Sepsis, unspecified organism (3) Acute respiratory failure with hypoxia: Admission and Anticipated Discharge Date Admission Date: January 20, 2020 Subjective Patient seen to the gas window of the door. Patient was sitting on a chair not in acute distress. Saturating 97% on 6 L nasal cannula. Respiratory rate in high teens. Review of Systems Review of Systems: Not obtained Physical Exam Physical Exam: Deferred due to Covid-19 restriction and preservation of PPE. Please review the hospitalist's physical exam from today Results & Data Results & Data ([facility]) Vital Signs (Past 12 Hours) Vital Signs Temp Pulse Pulse Resp BP BP Pulse Ox 01/24/20 08:53 36.6 C 69 20 112/57 L 89 L 01/24/20 06:36 62 99/58 L 88 L 01/24/20 06:30 62 88 L 01/24/20 06:00 61 88 L 01/24/20 05:30 61 85 L 01/24/20 05:00 63 83 L 01/24/20 04:36 61 107/52 L 91 01/24/20 04:30 60 93 01/24/20 04:00 61 91 01/24/20 03:59 61 106/58 L 91 01/24/20 03:48 36.2 C L 01/24/20 03:30 60 88 L 01/24/20 03:00 61 93 01/24/20 02:37 61 121/65 90 01/24/20 02:30 60 92 01/24/20 02:00 61 90 01/24/20 01:40 60 90 01/24/20 01:39 60 119/73 92 01/24/20 01:30 62 89 L 01/24/20 01:00 62 88 L 01/24/20 00:36 62 112/59 L 88 L 01/24/20 00:30 64 86 L 01/24/20 00:00 61 87 L 01/23/20 23:30 62 91 01/23/20 23:00 61 91 Pulse Ox 01/24/20 08:53 01/24/20 06:36 01/24/20 06:30 01/24/20 06:00 01/24/20 05:30 01/24/20 05:00 01/24/20 04:36 01/24/20 04:30 01/24/20 04:00 01/24/20 03:59 01/24/20 03:48 01/24/20 03:30 01/24/20 03:00 01/24/20 02:37 01/24/20 02:30 01/24/20 02:00 01/24/20 01:40 01/24/20 01:39 01/24/20 01:30 01/24/20 01:00 01/24/20 00:36 01/24/20 00:30 01/24/20 00:00 94 01/23/20 23:30 01/23/20 23:00 01/21/20 07:02 01/24/20 05:43 PG Care Time/CCT Total # of Minutes Spent Total Time Spent with Patient: Total time spent is greater than 50% in coordination of care (as documented) at patient's floor/unit and/or counseling patient: Coding Level of Care Code 75106 Subseq Hosp Care Lvl 2 Diagnoses COVID-19 U07.1 Sepsis A41.9 Sepsis acute organ dysfunction status: unspecified Sepsis type: sepsis due to unspecified organism Acute respiratory failure with hypoxia J96.01
--- NOTE | 2020-01-24 14:42 | Hospitalist Progress Note ---
Date of Service January 24, 2020 Assessment & Plan (1) Acute respiratory failure with hypoxia: due to COVID 19 currently stable on 6-7L nasal cannula. difficult to do prone position as his oxygen gets removed. will need to increase to HFNC if he starts to desaturate (2) COVID-19: 84yo C male with history of HTN, HLP and atrial fibrillation, recent travel from [place], [place] presenting with fevers/chills/rigors/diarrhea/SOB and hypoxia. Found to be positive for SARS-CoV-2. CXR with airspace disease more prevalent on the right. Patient hypoxic on arrival, now improved on NC currently. continue in negative pressure continue Dexamethasone 6mg IV daily for 10 days continue Remdesivir for 5 days Zithromax stopped due to prolonged QT consider enrollment in convalescent plasma keep lungs dry, pay attention to fluid balance, provided Lasix 40mg IV x 1 today, likely re-dose tomorrow Dr. Zamora following if he becomes more hypoxic then progress to HFNC he is DNR/DNI (3) Pulmonary edema: gave Lasix 40mg IV, recorded 1000mL out, still positive for admission want an even fluid balance no IV fluids at this time, received large amount of fluids in the ED and on admission Cr is stable (4) Sepsis: Patient febrile, tachycardic, tachypneic, hypoxic with leukocytosis. Source most likely underlying Covid-19, possibly secondary bacterial PNA as well - procalcitonin minimally elevated, continue Rocephin -Follow cultures (5) Acquired hypothyroidism: Chronic. TSH within normal limits. Synthroid 25mcg po daily listed on his prior medication list. Medications to be confirmed with daughter tomorrow -Will hold Synthroid for now until medications are confirmed with daughter in AM (6) Atrial fibrillation: Rate controlled. No anticoagulation -Telemetry monitoring (7) Hypertension: Patient hypotensive in setting of sepsis -Continue to monitor (8) Depression: Chronic. Patient has Paroxetine 40mg po daily listed on his medication -Will hold for now, confirm medications with family (9) Hyperlipidemia: Chronic -Patient has Simvastatin listed on his home medication list -Confirm with family F/E/N - NSS administered in ED, will give additional fluids as BP requires, mild hyponatremia, continue to monitor, Heart Healthy diet as tolerated with aspiration precautions Ppx - Lovenox 40mg BID Code - DNR/DNI Dispo - Admit to PCU Admission and Anticipated Discharge Date Admission Date: January 20, 2020 Subjective Pt tells me he is doing better every day. He is tolerating PO without issue. No n/v/d. No chest pain or SOB on NC, but has not moved around much. He is OOB to chair today and says that feels good. He is not at where he was prior, but better. Review of Systems Review of Systems: Pertinent positives and negatives reviewed in HPI--all others negative Physical Exam Constitutional: WD/WN, vitals as above Eyes: normal visual serrano by confrontation and + anicteric sclerae Neck: normal visual inspection and trachea midline Respiratory: normal respiratory effort; no respiratory distress Auscultation: + crackles; no wheezes Cardiovascular: Rate/Rhythm: regular rate and regular rhythm Gastrointestinal (Abdomen): Inspection/Auscultation: abdomen not distended Percussion/Palpation: abdomen soft; abdomen nontender Musculoskeletal: Head/Neck/Chest: normocephalic and head atraumatic Skin: no rashes, warm and dry Neurologic: awake and + confused Speech / Cognition: normal speech Psychiatric: A+Ox3, euthymic affect Results & Data Results & Data ([facility]) Vital Signs (Past 12 Hours) Vital Signs Temp Pulse Pulse Resp BP BP Pulse Ox 01/24/20 12:00 36.2 C L 68 20 113/66 95 01/24/20 08:53 36.6 C 69 20 112/57 L 89 L 01/24/20 06:36 62 99/58 L 88 L 01/24/20 06:30 62 88 L 01/24/20 06:00 61 88 L 01/24/20 05:30 61 85 L 01/24/20 05:00 63 83 L 01/24/20 04:36 61 107/52 L 91 01/24/20 04:30 60 93 01/24/20 04:00 61 91 01/24/20 03:59 61 106/58 L 91 01/24/20 03:48 36.2 C L 01/24/20 03:30 60 88 L 01/24/20 03:00 61 93 PG Care Time/CCT Total # of Minutes Spent Total Time Spent with Patient: Total time spent is greater than 50% in coordination of care (as documented) at patient's floor/unit and/or counseling patient: Coding Level of Care Code 09129 Subs Hosp Care Lvl 3 Diagnoses Acute respiratory failure with hypoxia J96.01 COVID-19 U07.1 Pulmonary edema J81.1 Sepsis A41.9 Sepsis acute organ dysfunction status: unspecified Sepsis type: sepsis due to unspecified organism Acquired hypothyroidism E03.9 Atrial fibrillation I48.91 Atrial fibrillation type: unspecified Hypertension I10 Hypertension type: essential hypertension Depression F33.1 Depression Type: major depressive disorder Major depression recurrence: recurrent Active/Remission status: currently active Major depression episode severity: moderate Hyperlipidemia E78.5 Hyperlipidemia type: unspecified (1) Sepsis Sepsis acute organ dysfunction status: unspecified Sepsis type: sepsis due to unspecified organism Qualified Code(s): A41.9 - Sepsis, unspecified organism (2) Atrial fibrillation Atrial fibrillation type: unspecified Qualified Code(s): I48.91 - Unspecified atrial fibrillation (3) Hypertension Hypertension type: essential hypertension Qualified Code(s): I10 - Essential (primary) hypertension (4) Depression Depression Type: major depressive disorder Major depression recurrence: recurrent Active/Remission status: currently active Major depression episode severity: moderate Qualified Code(s): F33.1 - Major depressive disorder, recurrent, moderate (5) Hyperlipidemia Hyperlipidemia type: unspecified Qualified Code(s): E78.5 - Hyperlipidemia, unspecified
[2020-01-25] MEDS: REMDESIVIR 100mg: Days 2-5 IV SCH (04:44)
[2020-01-25] MEDS: NSS FLUSH DAYS IV SCH ×2 (04:45→22:58)
[2020-01-25 07:11] LABS: Creatinine Clr Calc Pharmacy 57.6 ml/min; Est GFR (African American) 80.6; Est GFR (Non-African American) 69.5
--- NOTE | 2020-01-25 08:06 | Hospitalist Progress Note ---
Date of Service January 25, 2020 Assessment & Plan (1) Acute respiratory failure with hypoxia: due to COVID 19 currently stable on reducing amounts of nasal cannula oxygen Confusion does prevent him from reliably wearing the oxygen (2) COVID-19: 84yo C male with history of HTN, HLP and atrial fibrillation, recent travel from [place], [place] presenting with fevers/chills/rigors/diarrhea/SOB and hypoxia. Found to be positive for SARS-CoV-2. CXR with airspace disease more prevalent on the right. Patient hypoxic on arrival, now improved. Airborne precautions, continue in negative pressure Dexamethasone 6mg IV daily for 10 days last dose 01/31/2020 Completed Remdesivir last dose 01/25/2020 Zithromax stopped due to prolonged QT consider enrollment in convalescent plasma, spoke to his daughter who we recommend that I call she gave telephone verbal consent confirmed by his nurse Raegan on 01/25/2020 Pulmonary medicine is following recommending attempts at negative fluid balance to improve oxygenation Has not required high flow nasal cannula yet DNR/DNI (3) Pulmonary edema: Status post Lasix 40mg IV on 01/24/2020, recorded 1000mL out, renal function remained stable with diuresis (4) Sepsis: Patient febrile, tachycardic, tachypneic, hypoxic with leukocytosis. Source most Covid-19, possibly secondary bacterial PNA as well - procalcitonin minimally elevated, continue Rocephin - cultures are negative to date (5) Acquired hypothyroidism: Chronic. TSH within normal limits. (6) Atrial fibrillation: Rate controlled. Previously has not been on anticoagulation -Telemetry monitoring (7) Hypertension: Patient hypotensive in setting of sepsis now resolved -Continue to monitor (8) Depression: Chronic. Patient has Paroxetine 40mg po daily listed on his medication Remains on hold (9) Hyperlipidemia: Chronic -Patient has Simvastatin listed on his home medication list -Confirm with family Ppx - Lovenox 40mg BID Code - DNR/DNI Dispo - Admit to PCU Admission and Anticipated Discharge Date Admission Date: January 20, 2020 Subjective this pt is pleasantly confused, he cannot recall why he is here, we did speak of convalescent plasma and he suggested I speak to his daughter who then gave telephone consent. He offers no specific complaints. His oxygen requirements are slowly lessening Review of Systems Review of Systems: Moderate distress and fatigue no headache, blurry or double vision no speech or swallowing issues no chest pain, pressure or palpitations shortness of breath, nonproductive cough, no wheezes no abdominal pain, nausea or vomiting, diarrhea or constipation no dysuria, hematuria or frequency no focal joint pain or swelling no back pain, CVA tenderness or radicular pain no bruising, bleeding or rashes no focal signs of weakness or numbness or altered sensation no complaints or anxiety or depression. Physical Exam Physical Exam: The patient appeared well nourished and normally developed. He is pleasantly confused at times Vital signs as documented. Requiring 4 L of oxygen with saturations in the 90s Head exam is normocephalic atraumatic no scleral icterus Neck is without JVD, thyromegaly, or carotid bruits. Lungs are diffusely coarse to auscultation, no focal loss of breath sounds Cardiac exam, Rhythm is regular.. Slight systolic ejection murmur, but no rubs or gallops. Abdominal exam reveals normal bowel sounds, soft non tender, no masses Extremities are nonedematous and both pedal pulses are normal. Neurologic exam is alert and oriented x2, no focal loss of strength or sensation Skin is without bruises or rashes Psychologically is without concerns for anxiety or depression Results & Data Results & Data ([facility]) Vital Signs (Past 12 Hours) Vital Signs Temp Pulse BP Pulse Ox Pulse Ox 01/25/20 04:53 98.1 F 01/25/20 04:36 60 133/70 97 01/25/20 04:30 61 98 01/25/20 04:00 61 91 01/25/20 03:30 60 94 01/25/20 03:00 62 91 01/25/20 02:36 60 129/66 97 01/25/20 02:30 62 96 01/25/20 02:20 63 119/68 97 01/25/20 02:16 97.7 F 01/25/20 02:00 94 01/25/20 01:30 60 91 01/25/20 01:12 61 01/25/20 01:00 62 86 L 01/25/20 00:36 61 132/77 89 L 01/25/20 00:30 60 92 01/25/20 00:00 61 93 94 01/24/20 23:30 61 92 07/12/20 23:00 60 94 01/24/20 22:36 62 126/70 92 01/24/20 22:30 62 94 01/24/20 22:00 60 94 01/24/20 21:41 97.7 F 60 93 01/24/20 21:40 61 114/59 L 93 01/24/20 21:30 63 94 01/24/20 21:00 62 92 01/24/20 20:30 62 92 PG Care Time/CCT Total # of Minutes Spent Total Time Spent with Patient: Total time spent is greater than 50% in coordination of care (as documented) at patient's floor/unit and/or counseling patient: Coding Level of Care Code 79061 Subseq Hosp Care Lvl 3 Diagnoses Acute respiratory failure with hypoxia J96.01 COVID-19 U07.1 Pulmonary edema J81.1 Sepsis A41.9 Sepsis acute organ dysfunction status: unspecified Sepsis type: sepsis due to unspecified organism Acquired hypothyroidism E03.9 Atrial fibrillation I48.91 Atrial fibrillation type: unspecified Hypertension I10 Hypertension type: essential hypertension Depression F33.1 Active/Remission status: currently active Depression Type: major depressive disorder Major depression episode severity: moderate Major depression recurrence: recurrent Hyperlipidemia E78.5 Hyperlipidemia type: unspecified (1) Atrial fibrillation Atrial fibrillation type: unspecified Qualified Code(s): I48.91 - Unspecified atrial fibrillation (2) Depression Active/Remission status: currently active Depression Type: major depressive disorder Major depression episode severity: moderate Major depression recurrence: recurrent Qualified Code(s): F33.1 - Major depressive disorder, recurrent, moderate (3) Hyperlipidemia Hyperlipidemia type: unspecified Qualified Code(s): E78.5 - Hyperlipidemia, unspecified (4) Sepsis Sepsis acute organ dysfunction status: unspecified Sepsis type: sepsis due to unspecified organism Qualified Code(s): A41.9 - Sepsis, unspecified organism (5) Hypertension Hypertension type: essential hypertension Qualified Code(s): I10 - Essential (primary) hypertension
[2020-01-25] MEDS: cefTRIAXone SODIUM 2,000 MG in DEXTROSE 5% 50 ML IV SCH (08:36)
[2020-01-25] MEDS: DOXYCYCLINE HYCLATE 100 MG in DEXTROSE 5% 100 ML IV SCH ×2 (08:36→20:47)
[2020-01-25] MEDS: ENOXAPARIN INJ 40 MG/0.4 ML SYR SQ SCH ×2 (08:37→20:48)
[2020-01-25] MEDS: dexAMETHasone 6 MG in SYRINGE 0 ML IV SCH (08:37)
[2020-01-25] MEDS: PANTOprazole 40 MG TAB PO SCH (08:38)
[2020-01-25] MEDS: SIMVASTATIN 10 MG TAB PO SCH (22:47)
[2020-01-26 07:20] LABS: Alanine Aminotransferase 57 U/L (12-78); Aspartate Aminotransferase 70 U/L (15-37)
[2020-01-26 07:29] LABS: D Dimer 1340 ug/L FEU (0-500)
[2020-01-26] MEDS: cefTRIAXone SODIUM 2,000 MG in DEXTROSE 5% 50 ML IV SCH (08:30)
[2020-01-26] MEDS: DOXYCYCLINE HYCLATE 100 MG in DEXTROSE 5% 100 ML IV SCH ×2 (08:30→20:42)
[2020-01-26] MEDS: ENOXAPARIN INJ 40 MG/0.4 ML SYR SQ SCH ×2 (12:23→20:42)
[2020-01-26] MEDS: dexAMETHasone 6 MG in SYRINGE 0 ML IV SCH (12:24)
[2020-01-26] MEDS: PANTOprazole 40 MG TAB PO SCH (12:24)
--- NOTE | 2020-01-26 18:04 | Hospitalist Progress Note ---
Date of Service January 26, 2020 Assessment & Plan (1) Acute respiratory failure with hypoxia: due to COVID 19 currently stable on reducing amounts of nasal cannula oxygen Confusion perhaps metabolic encephalopathy is now a larger concern (2) COVID-19: 84yo C male with history of HTN, HLP and atrial fibrillation, recent travel from [place], [place] presenting with fevers/chills/rigors/diarrhea/SOB and hypoxia. Found to be positive for SARS-CoV-2. CXR with airspace disease more prevalent on the right. Patient hypoxic on arrival, now improved. Airborne precautions, continues in negative pressure Dexamethasone 6mg IV daily for 10 days last dose 01/31/2020 Completed Remdesivir last dose 01/25/2020 Zithromax stopped due to prolonged QT consider enrollment in convalescent plasma, spoke to his daughter who we recommend that I call she gave telephone verbal consent confirmed by his nurse Raegan on 01/25/2020 Pulmonary medicine is following recommending attempts at negative fluid balance to improve oxygenation Has not required high flow nasal cannula since D Dimer is reducing and oxygen requirements also will not pursue convalescent plasma at this point DNR/DNI (3) Pulmonary edema: Status post Lasix 40mg IV on 01/24/2020, recorded 1000mL out, has not required additional diuresis (4) Sepsis: initially Patient febrile, tachycardic, tachypneic, hypoxic with leukocytosis. Source Covid-19 pneumonia, possibly secondary bacterial PNA as well - procalcitonin minimally elevated, continue Rocephin compelte 7 day therapy - cultures are negative to date (5) Acquired hypothyroidism: Chronic. TSH within normal limits. (6) Atrial fibrillation: Rate controlled. Previously has not been on anticoagulation -Telemetry monitoring is in a paced rhythm at this point, given covid may consider AC for a time at snf (7) Hypertension: Patient hypotensive in setting of sepsis now resolved -Continue to monitor (8) Depression: Chronic. Patient has Paroxetine 40mg po daily listed on his medication resume (9) Hyperlipidemia: Chronic will resume statin Ppx - Lovenox 40mg BID Code - DNR/DNI Dispo - Admit to PCU Admission and Anticipated Discharge Date Admission Date: January 20, 2020 Subjective this pt remains pleasantly confused, he cannot hear well due to hearing aid malfunction, He offers no specific complaints. His oxygen requirements are slowly lessening as well as D Dimer levels Review of Systems Review of Systems: Moderate distress and fatigue no headache, blurry or double vision no speech or swallowing issues no chest pain, pressure or palpitations shortness of breath, nonproductive cough, no wheezes no abdominal pain, nausea or vomiting, diarrhea or constipation no dysuria, hematuria or frequency no focal joint pain or swelling no back pain, CVA tenderness or radicular pain no bruising, bleeding or rashes no focal signs of weakness or numbness or altered sensation no complaints or anxiety or depression. Physical Exam Physical Exam: The patient appeared well nourished and normally developed. He is pleasantly confused at times Vital signs as documented. Requiring 4 L of oxygen with saturations in the 90s Head exam is normocephalic atraumatic no scleral icterus Neck is without JVD, thyromegaly, or carotid bruits. Lungs are diffusely coarse to auscultation, no focal loss of breath sounds Cardiac exam, Rhythm is regular.. Slight systolic ejection murmur, but no rubs or gallops. Abdominal exam reveals normal bowel sounds, soft non tender, no masses Extremities are nonedematous and both pedal pulses are normal. Neurologic exam is alert and oriented x2, no focal loss of strength or sensation Skin is without bruises or rashes Psychologically is without concerns for anxiety or depression Results & Data Results & Data ([facility]) Vital Signs (Past 12 Hours) Vital Signs Temp Pulse Pulse Resp BP Pulse Ox 01/26/20 15:34 97.3 F L 62 18 143/77 H 96 01/26/20 12:22 97.7 F 67 18 125/63 92 01/26/20 08:44 97.7 F 63 18 164/84 H 95 01/26/20 08:00 60 PG Care Time/CCT Total # of Minutes Spent Total Time Spent with Patient: Total time spent is greater than 50% in coordination of care (as documented) at patient's floor/unit and/or counseling patient: i spoke to messi Fraser 01/25 Coding Level of Care Code 25011 Subseq Hosp Care Lvl 3 Diagnoses Acute respiratory failure with hypoxia J96.01 COVID-19 U07.1 Pulmonary edema J81.1 Sepsis A41.9 Sepsis acute organ dysfunction status: unspecified Sepsis type: sepsis due to unspecified organism Acquired hypothyroidism E03.9 Atrial fibrillation I48.91 Atrial fibrillation type: unspecified Hypertension I10 Hypertension type: essential hypertension Depression F33.1 Depression Type: major depressive disorder Major depression recurrence: recurrent Active/Remission status: currently active Major depression episode severity: moderate Hyperlipidemia E78.5 Hyperlipidemia type: unspecified (1) Sepsis Sepsis acute organ dysfunction status: unspecified Sepsis type: sepsis due to unspecified organism Qualified Code(s): A41.9 - Sepsis, unspecified organism (2) Atrial fibrillation Atrial fibrillation type: unspecified Qualified Code(s): I48.91 - Unspecified atrial fibrillation (3) Hypertension Hypertension type: essential hypertension Qualified Code(s): I10 - Essential (primary) hypertension (4) Depression Depression Type: major depressive disorder Major depression recurrence: rec urrent Active/Remission status: currently active Major depression episode severity: moderate Qualified Code(s): F33.1 - Major depressive disorder, recurrent, moderate (5) Hyperlipidemia Hyperlipidemia type: unspecified Qualified Code(s): E78.5 - Hyperlipidemia, unspecified
[2020-01-26 18:24] LABS: D Dimer 1340 ug/L FEU (0-500)
[2020-01-26] MEDS: SIMVASTATIN 10 MG TAB PO SCH (20:42)
[2020-01-27] MEDS: NSS FLUSH DAYS IV SCH (00:15)
--- NOTE | 2020-01-27 08:21 | Hospitalist Progress Note ---
Date of Service January 27, 2020 Assessment & Plan (1) Acute respiratory failure with hypoxia: due to COVID 19 currently stable on reducing amounts of nasal cannula oxygen Confusion perhaps metabolic encephalopathy is now a larger concern (2) COVID-19: 84yo C male with history of HTN, HLP and atrial fibrillation, recent travel from [place], [place] presenting with fevers/chills/rigors/diarrhea/SOB and hypoxia. Found to be positive for SARS-CoV-2. CXR with airspace disease more prevalent on the right. Patient hypoxic on arrival, now improved. Airborne precautions, continues in negative pressure Dexamethasone 6mg IV daily for 10 days last dose 01/31/2020 Completed Remdesivir last dose 01/25/2020 Zithromax stopped due to prolonged QT consider enrollment in convalescent plasma, spoke to his daughter who we recommend that I call she gave telephone verbal consent confirmed by his nurse Raegan on 01/25/2020 Pulmonary medicine is following recommending attempts at negative fluid balance to improve oxygenation Has not required high flow nasal cannula since D Dimer is reducing and oxygen requirements also will not pursue convalescent plasma at this point DNR/DNI (3) Pulmonary edema: Status post Lasix 40mg IV on 01/24/2020, recorded 1000mL out, has not required additional diuresis (4) Sepsis: initially Patient febrile, tachycardic, tachypneic, hypoxic with leukocytosis. Source Covid-19 pneumonia, possibly secondary bacterial PNA as well - procalcitonin minimally elevated, continue Rocephin compelte 7 day therapy - cultures are negative to date (5) Acquired hypothyroidism: Chronic. TSH within normal limits. (6) Atrial fibrillation: remains Rate controlled. Previously has not been on anticoagulation -Telemetry monitoring is in a paced rhythm at this point, given covid may consider AC for a time at snf (7) Hypertension: Patient hypotensive in setting of sepsis now resolved -Continue to monitor (8) Depression: Chronic. Patient has Paroxetine 40mg po daily listed on his medication resume (9) Hyperlipidemia: Chronic did resume statin Ppx - Lovenox 40mg BID Code - DNR/DNI remains in negative pressure room Admission and Anticipated Discharge Date Admission Date: January 20, 2020 Subjective this pt is doing better each day, today his confusion seems to have cleared a bit, also lessened oxygen requirement Review of Systems Review of Systems: Moderate distress and fatigue no headache, blurry or double vision no speech or swallowing issues no chest pain, pressure or palpitations shortness of breath, nonproductive cough, no wheezes no abdominal pain, nausea or vomiting, diarrhea or constipation no dysuria, hematuria or frequency no focal joint pain or swelling no back pain, CVA tenderness or radicular pain no bruising, bleeding or rashes no focal signs of weakness or numbness or altered sensation no complaints or anxiety or depression. Physical Exam Physical Exam: The patient appeared well nourished and normally developed. He is pleasantly confused at times Vital signs as documented. Requiring 4 L of oxygen with saturations in the 90s Head exam is normocephalic atraumatic no scleral icterus Neck is without JVD, thyromegaly, or carotid bruits. Lungs are diffusely coarse to auscultation, no focal loss of breath sounds Cardiac exam, Rhythm is regular.. Slight systolic ejection murmur, but no rubs or gallops. Abdominal exam reveals normal bowel sounds, soft non tender, no masses Extremities are nonedematous and both pedal pulses are normal. Neurologic exam is alert and oriented x2, no focal loss of strength or sensation Skin is without bruises or rashes Psychologically is without concerns for anxiety or depression Results & Data Results & Data ([facility]) Vital Signs (Past 12 Hours) Vital Signs Temp Pulse Pulse Resp BP Pulse Ox 01/27/20 04:44 97.7 F 62 18 134/76 94 01/27/20 01:34 61 01/27/20 00:15 98.1 F 61 18 129/70 93 01/26/20 20:41 97.5 F L 78 20 137/89 95 PG Care Time/CCT Total # of Minutes Spent Total Time Spent with Patient: Total time spent is greater than 50% in coordination of care (as documented) at patient's floor/unit and/or counseling patient: Coding Level of Care Code 20863 Subseq Hosp Care Lvl 2 Diagnoses Acute respiratory failure with hypoxia J96.01 COVID-19 U07.1 Pulmonary edema J81.1 Sepsis A41.9 Sepsis acute organ dysfunction status: unspecified Sepsis type: sepsis due to unspecified organism Acquired hypothyroidism E03.9 Atrial fibrillation I48.91 Atrial fibrillation type: unspecified Hypertension I10 Hypertension type: essential hypertension Depression F33.1 Active/Remission status: currently active Depression Type: major depressive disorder Major depression episode severity: moderate Major depression recurrence: recurrent Hyperlipidemia E78.5 Hyperlipidemia type: unspecified (1) Atrial fibrillation Atrial fibrillation type: unspecified Qualified Code(s): I48.91 - Unspecified atrial fibrillation (2) Depression Active/Remission status: currently active Depression Type: major depressive disorder Major depression episode severity: moderate Major depression recurrence: recurrent Qualified Code(s): F33.1 - Major depressive disorder, recurrent, moderate (3) Hyperlipidemia Hyperlipidemia type: unspecified Qualified Code(s): E78.5 - Hyperlipidemia, unspecified (4) Sepsis Sepsis acute organ dysfunction status: unspecified Sepsis type: sepsis due to unspecified organism Qualified Code(s): A41.9 - Sepsis, unspecified organism (5) Hypertension Hypertension type: essential hypertension Qualified Code(s): I10 - Essential (primary) hypertension
[2020-01-27] MEDS: ENOXAPARIN INJ 40 MG/0.4 ML SYR SQ SCH ×2 (08:24→21:21)
[2020-01-27] MEDS: cefTRIAXone SODIUM 2,000 MG in DEXTROSE 5% 50 ML IV SCH (08:24)
[2020-01-27] MEDS: DOXYCYCLINE HYCLATE 100 MG in DEXTROSE 5% 100 ML IV SCH (08:24)
[2020-01-27] MEDS: PARoxetine HCL 20 MG TAB PO SCH (08:25)
[2020-01-27] MEDS: PANTOprazole 40 MG TAB PO SCH (08:25)
[2020-01-27] MEDS: dexAMETHasone 6 MG in SYRINGE 0 ML IV SCH (08:26)
[2020-01-27 09:44] LABS: Hematocrit (blood only) 38.5 % (42-52); Hemoglobin 13.1 g/dL (14.0-18.0); Mean Corpuscular Hemoglobin 30.6 pg (25-34); Mean Platelet Volume 9.6 fL (7.4-10.4); Platelet Count 335 K/uL (130-400); RDW Coefficient of Variation 14.3 % (11.5-14.5); RDW Standard Deviation 46.7 fL (36.4-46.3); Red Blood Count 4.28 M/uL (4.7-6.1); White Blood Count 7.55 K/uL (4.8-10.8)
[2020-01-27 10:34] LABS: BUN Creatinine Ratio 19.8 (10-20); Calcium 8.2 mg/dl (8.5-10.1); Creatinine Clr Calc Pharmacy 58.2 ml/min; Est GFR (African American) 81.6; Est GFR (Non-African American) 70.4; Potassium 3.7 mmol/L (3.5-5.1)
[2020-01-27 19:01] LABS: D Dimer 1210 ug/L FEU (0-500)
[2020-01-27] MEDS: SIMVASTATIN 10 MG TAB PO SCH (21:21)
[2020-01-28] MEDS: NSS FLUSH DAYS IV SCH (04:12)
--- NOTE | 2020-01-28 07:49 | Hospitalist Progress Note ---
Date of Service January 28, 2020 Assessment & Plan (1) Acute respiratory failure with hypoxia: due to COVID 19 currently stable on reducing amounts of nasal cannula oxygen, tolerated room air at rest for a bit confusion is cleared (2) COVID-19: 84yo C male with history of HTN, HLP and atrial fibrillation, recent travel from [place], [place] presenting with fevers/chills/rigors/diarrhea/SOB and hypoxia. Found to be positive for SARS-CoV-2. CXR with airspace disease more prevalent on the right. Patient hypoxic on arrival, now improved. Airborne precautions, continues in negative pressure Dexamethasone 6mg IV daily for 10 days last dose 01/31/2020 Completed Remdesivir last dose 01/25/2020 Zithromax stopped due to prolonged QT consider enrollment in convalescent plasma, spoke to his daughter who we recommend that I call she gave telephone verbal consent confirmed by his nurse Raegan on 01/25/2020 Pulmonary medicine is following recommending attempts at negative fluid balance to improve oxygenation since D Dimer is reducing and oxygen requirements also will not pursue convalescent plasma at this point DNR/DNI (3) Pulmonary edema: resolved (4) Sepsis: initially Patient febrile, tachycardic, tachypneic, hypoxic with leukocytosis. Source Covid-19 pneumonia, possibly secondary bacterial PNA as well - procalcitonin minimally elevated, continue Rocephin compelte 7 day therapy - cultures are negative to date (5) Acquired hypothyroidism: Chronic. TSH within normal limits. (6) Atrial fibrillation: remains Rate controlled. Previously has not been on anticoagulation -Telemetry monitoring is in a paced rhythm at this point, given covid may consider AC for a time at snf (7) Hypertension: Patient hypotensive in setting of sepsis now resolved -Continue to monitor (8) Depression: Chronic. Patient has Paroxetine 40mg po daily listed on his medication resume (9) Hyperlipidemia: Chronic did resume statin Ppx - Lovenox 40mg BID Code - DNR/DNI remains in negative pressure room Admission and Anticipated Discharge Date Admission Date: January 20, 2020 Subjective this pt is doing better each day, less confusion and oxygen requirement Review of Systems Review of Systems: Moderate distress and fatigue no headache, blurry or double vision no speech or swallowing issues no chest pain, pressure or palpitations shortness of breath, nonproductive cough, no wheezes no abdominal pain, nausea or vomiting, diarrhea or constipation no dysuria, hematuria or frequency no focal joint pain or swelling no back pain, CVA tenderness or radicular pain no bruising, bleeding or rashes no focal signs of weakness or numbness or altered sensation no complaints or anxiety or depression. Physical Exam Physical Exam: The patient appeared well nourished and normally developed. He is pleasantly confused at times Vital signs as documented. Requiring 4 L of oxygen with saturations in the 90s Head exam is normocephalic atraumatic no scleral icterus Neck is without JVD, thyromegaly, or carotid bruits. Lungs are diffusely coarse to auscultation, no focal loss of breath sounds Cardiac exam, Rhythm is regular.. Slight systolic ejection murmur, but no rubs or gallops. Abdominal exam reveals normal bowel sounds, soft non tender, no masses Extremities are nonedematous and both pedal pulses are normal. Neurologic exam is alert and oriented x2, no focal loss of strength or sensation Skin is without bruises or rashes Psychologically is without concerns for anxiety or depression Results & Data Results & Data ([facility]) Vital Signs (Past 12 Hours) Vital Signs Temp Pulse Pulse Resp BP BP Pulse Ox 01/28/20 07:15 97.3 F L 64 18 144/76 H 90 01/28/20 04:32 97.7 F 60 18 149/81 H 93 01/28/20 00:06 60 01/27/20 23:51 98.1 F 60 18 145/72 H 95 01/27/20 21:14 97.5 F L 63 20 125/72 92 PG Care Time/CCT Total # of Minutes Spent Total Time Spent with Patient: Total time spent is greater than 50% in coordination of care (as documented) at patient's floor/unit and/or counseling patient: Coding Level of Care Code 28371 Subseq Hosp Care Lvl 2 Diagnoses Acute respiratory failure with hypoxia J96.01 COVID-19 U07.1 Pulmonary edema J81.1 Sepsis A41.9 Sepsis acute organ dysfunction status: unspecified Sepsis type: sepsis due to unspecified organism Acquired hypothyroidism E03.9 Atrial fibrillation I48.91 Atrial fibrillation type: unspecified Hypertension I10 Hypertension type: essential hypertension Depression F33.1 Active/Remission status: currently active Depression Type: major depressive disorder Major depression episode severity: moderate Major depression recurrence: recurrent Hyperlipidemia E78.5 Hyperlipidemia type: unspecified (1) Atrial fibrillation Atrial fibrillation type: unspecified Qualified Code(s): I48.91 - Unspecified atrial fibrillation (2) Depression Active/Remission status: currently active Depression Type: major depressive disorder Major depression episode severity: moderate Major depression recurrence: recurrent Qualified Code(s): F33.1 - Major depressive disorder, recurrent, moderate (3) Hyperlipidemia Hyperlipidemia type: unspecified Qualified Code(s): E78.5 - Hyperlipidemia, unspecified (4) Sepsis Sepsis acute organ dysfunction status: unspecified Sepsis type: sepsis due to unspecified organism Qualified Code(s): A41.9 - Sepsis, unspecified organism (5) Hypertension Hypertension type: essential hypertension Qualified Code(s): I10 - Essential (primary) hypertension
[2020-01-28] MEDS: cefTRIAXone SODIUM 2,000 MG in DEXTROSE 5% 50 ML IV SCH (08:33)
[2020-01-28] MEDS: PARoxetine HCL 20 MG TAB PO SCH (08:34)
[2020-01-28] MEDS: ENOXAPARIN INJ 40 MG/0.4 ML SYR SQ SCH ×2 (08:34→20:58)
[2020-01-28 10:58] LABS: Alanine Aminotransferase 65 U/L (12-78); Aspartate Aminotransferase 53 U/L (15-37)
[2020-01-28] MEDS: dexAMETHasone 6 MG in SYRINGE 0 ML IV SCH (11:10)
[2020-01-28] MEDS: PANTOprazole 40 MG TAB PO SCH (11:14)
[2020-01-28 18:40] LABS: D Dimer 1060 ug/L FEU (0-500)
[2020-01-28] MEDS: SIMVASTATIN 10 MG TAB PO SCH (20:44)
[2020-01-29] MEDS: NSS FLUSH DAYS IV SCH (03:06)
[2020-01-29 06:29] LABS: Hematocrit (blood only) 39.3 % (42-52); Hemoglobin 13.4 g/dL (14.0-18.0); Mean Corpuscular Hemoglobin 30.5 pg (25-34); Mean Corpuscular Hgb Conc 34.1 g/dL (32-36); Mean Corpuscular Volume 89.3 fL (80-100); Mean Platelet Volume 9.5 fL (7.4-10.4); Platelet Count 368 K/uL (130-400); RDW Coefficient of Variation 14.4 % (11.5-14.5); RDW Standard Deviation 47.1 fL (36.4-46.3); White Blood Count 7.13 K/uL (4.8-10.8)
[2020-01-29 07:08] LABS: Calcium 8.3 mg/dl (8.5-10.1); Creatinine Clr Calc Pharmacy 62.1 ml/min; Est GFR (African American) 88.1
--- NOTE | 2020-01-29 07:26 | Hospitalist Progress Note ---
Date of Service January 29, 2020 Assessment & Plan (1) Acute respiratory failure with hypoxia: due to COVID 19 currently stable on room air confusion is cleared covid testing 01/25 remains positive (2) COVID-19: 84yo C male with history of HTN, HLP and atrial fibrillation, recent travel from [place], [place] presenting with fevers/chills/rigors/diarrhea/SOB and hypoxia. Found to be positive for SARS-CoV-2. CXR with airspace disease more prevalent on the right. Patient hypoxic on arrival, now improved. Airborne precautions, continues in negative pressure Dexamethasone 6mg IV daily for 10 days last dose 01/31/2020 Completed Remdesivir last dose 01/25/2020 Zithromax stopped due to prolonged QT consider enrollment in convalescent plasma, spoke to his daughter who we recommend that I call she gave telephone verbal consent confirmed by his nurse Raegan on 01/25/2020 Pulmonary medicine is following recommending attempts at negative fluid balance to improve oxygenation since D Dimer is reducing and oxygen requirements did not pursue convalescent plasma at this point DNR/DNI (3) Pulmonary edema: resolved (4) Sepsis: initially Patient febrile, tachycardic, tachypneic, hypoxic with leukocytosis. Source Covid-19 pneumonia, possibly secondary bacterial PNA as well - procalcitonin minimally elevated, continue Rocephin compelte 7 day therapy - cultures are negative to date (5) Acquired hypothyroidism: Chronic. TSH within normal limits. (6) Atrial fibrillation: remains Rate controlled. Previously has not been on anticoagulation -Telemetry monitoring is in a paced rhythm at this point, given covid may consider AC for a time at snf (7) Hypertension: Patient hypotensive in setting of sepsis now resolved -Continue to monitor (8) Depression: Chronic. Patient has Paroxetine 40mg po daily listed on his medication resume (9) Hyperlipidemia: Chronic did resume statin Ppx - Lovenox 40mg BID Code - DNR/DNI remains in negative pressure room Admission and Anticipated Discharge Date Admission Date: January 20, 2020 Subjective this pt is doing better each day, less confusion and now on room air Review of Systems Review of Systems: Moderate distress and fatigue no headache, blurry or double vision no speech or swallowing issues no chest pain, pressure or palpitations shortness of breath, nonproductive cough, no wheezes no abdominal pain, nausea or vomiting, diarrhea or constipation no dysuria, hematuria or frequency no focal joint pain or swelling no back pain, CVA tenderness or radicular pain no bruising, bleeding or rashes no focal signs of weakness or numbness or altered sensation no complaints or anxiety or depression. Physical Exam Physical Exam: The patient appeared well nourished and normally developed. He is pleasantly confused at times Vital signs as documented. Requiring 4 L of oxygen with saturations in the 90s Head exam is normocephalic atraumatic no scleral icterus Neck is without JVD, thyromegaly, or carotid bruits. Lungs are diffusely coarse to auscultation, no focal loss of breath sounds Cardiac exam, Rhythm is regular.. Slight systolic ejection murmur, but no rubs or gallops. Abdominal exam reveals normal bowel sounds, soft non tender, no masses Extremities are nonedematous and both pedal pulses are normal. Neurologic exam is alert and oriented x2, no focal loss of strength or sensation Skin is without bruises or rashes Psychologically is without concerns for anxiety or depression Results & Data Results & Data ([facility]) Vital Signs (Past 12 Hours) Vital Signs Temp Pulse Pulse Resp BP Pulse Ox 01/29/20 04:33 97.5 F L 69 18 125/86 91 01/29/20 02:34 61 01/28/20 20:47 97.7 F 62 18 138/74 91 PG Care Time/CCT Total # of Minutes Spent Total Time Spent with Patient: Total time spent is greater than 50% in coordina tion of care (as documented) at patient's floor/unit and/or counseling patient: Coding Level of Care Code 43792 Subseq Hosp Care Lvl 2 Diagnoses Acute respiratory failure with hypoxia J96.01 COVID-19 U07.1 Pulmonary edema J81.1 Sepsis A41.9 Sepsis acute organ dysfunction status: unspecified Sepsis type: sepsis due to unspecified organism Acquired hypothyroidism E03.9 Atrial fibrillation I48.91 Atrial fibrillation type: unspecified Hypertension I10 Hypertension type: essential hypertension Depression F33.1 Active/Remission status: currently active Depression Type: major depressive disorder Major depression episode severity: moderate Major depression recurrence: recurrent Hyperlipidemia E78.5 Hyperlipidemia type: unspecified (1) Atrial fibrillation Atrial fibrillation type: unspecified Qualified Code(s): I48.91 - Unspecified atrial fibrillation (2) Depression Active/Remission status: currently active Depression Type: major depressive disorder Major depression episode severity: moderate Major depression recur rence: recurrent Qualified Code(s): F33.1 - Major depressive disorder, recurrent, moderate (3) Hyperlipidemia Hyperlipidemia type: unspecified Qualified Code(s): E78.5 - Hyperlipidemia, unspecified (4) Sepsis Sepsis acute organ dysfunction status: unspecified Sepsis type: sepsis due to unspecified organism Qualified Code(s): A41.9 - Sepsis, unspecified organism (5) Hypertension Hypertension type: essential hypertension Qualified Code(s): I10 - Essential (primary) hypertension
[2020-01-29] MEDS: dexAMETHasone 6 MG in SYRINGE 0 ML IV SCH (07:54)
[2020-01-29] MEDS: ENOXAPARIN INJ 40 MG/0.4 ML SYR SQ SCH ×2 (07:54→19:46)
[2020-01-29] MEDS: PANTOprazole 40 MG TAB PO SCH (07:55)
[2020-01-29] MEDS: PARoxetine HCL 20 MG TAB PO SCH (07:55)
[2020-01-29] MEDS: SIMVASTATIN 10 MG TAB PO SCH (19:46)
[2020-01-30] MEDS: NSS FLUSH DAYS IV SCH (05:08)
[2020-01-30 05:46] LABS: Alanine Aminotransferase 58 U/L (12-78); Aspartate Aminotransferase 36 U/L (15-37)
--- NOTE | 2020-01-30 07:19 | Hospitalist Progress Note ---
Date of Service January 30, 2020 Assessment & Plan (1) Acute respiratory failure with hypoxia: due to COVID 19 currently stable on room air confusion is cleared but has some remnants of memory dysfunction which makes me concerned for him being home alone covid testing 01/25, 01/27 remain positive testing every 48 hours in attempts to gain to negative test for placement to nursing facility (2) COVID-19: 84yo C male with history of HTN, HLP and atrial fibrillation, recent travel from [place], [place] presenting with fevers/chills/rigors/diarrhea/SOB and hypoxia. Found to be positive for SARS-CoV-2. CXR with airspace disease more prevalent on the right. Patient hypoxic on arrival, now improved without symptoms tolerating room air. Airborne precautions, continues in negative pressure Dexamethasone 6mg IV daily for 10 days last dose 01/31/2020 Completed Remdesivir last dose 01/25/2020 Zithromax stopped due to prolonged QT considered enrollment in convalescent plasma, spoke to his daughter who we recommend that I call she gave telephone verbal consent confirmed by his nurse Raegan on 01/25/2020 Pulmonary medicine is following recommending attempts at negative fluid balance to improve oxygenation since D Dimer is reducing and oxygen requirements did not pursue convalescent plasma at this point DNR/DNI (3) Pulmonary edema: resolved (4) Sepsis: initially Patient febrile, tachycardic, tachypneic, hypoxic with leukocytosis. Source Covid-19 pneumonia, possibly secondary bacterial PNA as well - procalcitonin minimally elevated, continue Rocephin compelte 7 day therapy - cultures are negative to date (5) Acquired hypothyroidism: Chronic. TSH within normal limits. (6) Atrial fibrillation: remains Rate controlled. Previously has not been on anticoagulation -Telemetry monitoring is in a paced rhythm at this point, given covid may consider AC for a time at snf (7) Hypertension: Patient hypotensive in setting of sepsis now resolved -Continue to monitor (8) Depression: Chronic. Patient has Paroxetine 40mg po daily listed on his medication resume (9) Hyperlipidemia: Chronic did resume statin Ppx - Lovenox 40mg BID Code - DNR/DNI remains in negative pressure room Admission and Anticipated Discharge Date Admission Date: January 20, 2020 Subjective Patient has no complaints minor confusion whether in hospital delirium might be possible believe part of it is ambulating about his room unfortunately to convalescent COVID testing have been positive on the and and the patient will require 2- test prior to a skilled nursing transition subsequently we are testing every 48 hours and attempts to tong to negative test he currently has no symptoms Review of Systems Review of Systems: Moderate distress and fatigue no headache, blurry or double vision no speech or swallowing issues no chest pain, pressure or palpitations shortness of breath, nonproductive cough, no wheezes no abdominal pain, nausea or vomiting, diarrhea or constipation no dysuria, hematuria or frequency no focal joint pain or swelling no back pain, CVA tenderness or radicular pain no bruising, bleeding or rashes no focal signs of weakness or numbness or altered sensation no complaints or anxiety or depression. Physical Exam Physical Exam: The patient appeared well nourished and normally developed. He is pleasantly confused at times Vital signs as documented. Requiring 4 L of oxygen with saturations in the 90s Head exam is normocephalic atraumatic no scleral icterus Neck is without JVD, thyromegaly, or carotid bruits. Lungs are diffusely coarse to auscultation, no focal loss of breath sounds Cardiac exam, Rhythm is regular.. Slight systolic ejection murmur, but no rubs or gallops. Abdominal exam reveals normal bowel sounds, soft non tender, no masses Extremities are nonedematous and both pedal pulses are normal. Neurologic exam is alert and oriented x2, no focal loss of strength or sensation Skin is without bruises or rashes Psychologically is without concerns for anxiety or depression Results & Data Results & Data ([facility]) Vital Signs (Past 12 Hours) Vital Signs Temp Pulse Pulse Resp BP Pulse Ox 01/30/20 03:52 97.7 F 60 18 149/84 H 91 01/29/20 22:20 60 01/29/20 19:55 97.5 F L 61 18 136/74 90 PG Care Time/CCT Total # of Minutes Spent Total Time Spent with Patient: Total time spent is greater than 50% in coordination of care (as documented) at patient's floor/unit and/or counseling patient: Coding Level of Care Code 42734 Subseq Hosp Care Lvl 2 Diagnoses Acute respiratory failure with hypoxia J96.01 COVID-19 U07.1 Pulmonary edema J81.1 Sepsis A41.9 Sepsis acute organ dysfunction status: unspecified Sepsis type: sepsis due to unspecified organism Acquired hypothyroidism E03.9 Atrial fibrillation I48.91 Atrial fibrillation type: unspecified Hypertension I10 Hypertension type: essential hypertension Depression F33.1 Active/Remission status: currently active Depression Type: major depressive disorder Major depression episode severity: moderate Major depression recurrence: recurrent Hyperlipidemia E78.5 Hyperlipidemia type: unspecified (1) Atrial fibrillation Atrial fibrillation type: unspecified Qualified Code(s): I48.91 - Unspecified atrial fibrillation (2) Depression Active/Remission status: currently active Depression Type: major depressive disorder Major depression episode severity: moderate Major depression recurrence: recurrent Qualified Code(s): F33.1 - Major depressive disorder, recurrent, moderate (3) Hyperlipidemia Hyperlipidemia type: unspecified Qualified Code(s): E78.5 - Hyperlipidemia, unspecified (4) Sepsis Sepsis acute organ dysfunction status: unspecified Sepsis type: sepsis due to unspecified organism Qualified Code(s): A41.9 - Sepsis, unspecified organism (5) Hypertension Hypertension type: essential hypertension Qualified Code(s): I10 - Essential (primary) hypertension
[2020-01-30] MEDS: dexAMETHasone 6 MG in SYRINGE 0 ML IV SCH (08:13)
[2020-01-30] MEDS: ENOXAPARIN INJ 40 MG/0.4 ML SYR SQ SCH ×2 (08:14→20:45)
[2020-01-30] MEDS: PANTOprazole 40 MG TAB PO SCH (08:15)
[2020-01-30] MEDS: PARoxetine HCL 20 MG TAB PO SCH (08:15)
[2020-01-30] MEDS: SIMVASTATIN 10 MG TAB PO SCH (20:45)
--- NOTE | 2020-01-31 07:18 | Hospitalist Progress Note ---
Date of Service January 31, 2020 Assessment & Plan (1) Acute respiratory failure with hypoxia: due to COVID 19 currently stable on room air confusion is cleared but has some remnants of memory dysfunction which makes me concerned for him being home alone covid testing 01/25, 01/27 remain positive testing every 48 hours in attempts to gain to negative test for placement to nursing facility (2) COVID-19: 84yo C male with history of HTN, HLP and atrial fibrillation, recent travel from [place], [place] presenting with fevers/chills/rigors/diarrhea/SOB and hypoxia. Found to be positive for SARS-CoV-2. CXR with airspace disease more prevalent on the right. Patient hypoxic on arrival, now improved without symptoms tolerating room air. Airborne precautions, continues in negative pressure Dexamethasone 6mg IV daily for 10 days last dose 01/31/2020 Completed Remdesivir last dose 01/25/2020 Zithromax stopped due to prolonged QT Briefly considered enrollment in convalescent plasma,but since D Dimer is reducing and oxygen requirements did not pursue convalescent plasma at this point DNR/DNI (3) Pulmonary edema: resolved (4) Sepsis: initially Patient febrile, tachycardic, tachypneic, hypoxic with leukocytosis. Source Covid-19 pneumonia, possibly secondary bacterial PNA as well - procalcitonin minimally elevated, completed Rocephin 7 day therapy - cultures are negative to date (5) Acquired hypothyroidism: Chronic. TSH within normal limits. (6) Atrial fibrillation: Is paced at this time Previously has not been on anticoagulation -Telemetry monitoring given covid may consider AC for a time at snf (7) Hypertension: Patient hypotensive in setting of sepsis now resolved -blood pressure is stable with no treatment (8) Depression: Chronic. Patient has Paroxetine 40mg po daily listed on his medication resume (9) Hyperlipidemia: Chronic did resume statin Ppx - Lovenox 40mg BID Code - DNR/DNI remains in negative pressure room Admission and Anticipated Discharge Date Admission Date: January 20, 2020 Subjective Patient has no complaints but presists with minor confusion which makes living independently not realistic and has no nearby family The pt is ambulating about his room, unfortunately to convalescent COVID testing have been positive on the and and the patient will require 2- test prior to a [place] [facility] transition subsequently we are testing every 48 hours and attempts to tong to negative test he currently has no symptoms Review of Systems Review of Systems: Moderate distress and fatigue no headache, blurry or double vision no speech or swallowing issues no chest pain, pressure or palpitations shortness of breath, nonproductive cough, no wheezes no abdominal pain, nausea or vomiting, diarrhea or constipation no dysuria, hematuria or frequency no focal joint pain or swelling no back pain, CVA tenderness or radicular pain no bruising, bleeding or rashes no focal signs of weakness or numbness or altered sensation no complaints or anxiety or depression. Physical Exam Physical Exam: The patient appeared well nourished and normally developed. He is pleasantly confused at times Vital signs as documented. Requiring 4 L of oxygen with saturations in the 90s Head exam is normocephalic atraumatic no scleral icterus Neck is without JVD, thyromegaly, or carotid bruits. Lungs are diffusely coarse to auscultation, no focal loss of breath sounds Cardiac exam, Rhythm is regular.. Slight systolic ejection murmur, but no rubs or gallops. Abdominal exam reveals normal bowel sounds, soft non tender, no masses Extremities are nonedematous and both pedal pulses are normal. Neurologic exam is alert and oriented x2, no focal loss of strength or sensation Skin is without bruises or rashes Psychologically is without concerns for anxiety or depression Results & Data Results & Data ([facility]) Vital Signs (Past 12 Hours) Vital Signs Pulse 01/30/20 23:26 60 PG Care Time/CCT Total # of Minutes Spent Total Time Spent with Patient: Total time spent is greater than 50% in coordination of care (as documented) at patient's floor/unit and/or counseling patient: Coding Level of Care Code 06346 Subseq Hosp Care Lvl 2 Diagnoses Acute respiratory failure with hypoxia J96.01 COVID-19 U07.1 Pulmonary edema J81.1 Sepsis A41.9 Sepsis acute organ dysfunction status: unspecified Sepsis type: sepsis due to unspecified organism Acquired hypothyroidism E03.9 Atrial fibrillation I48.91 Atrial fibrillation type: unspecified Hypertension I10 Hypertension type: essential hypertension Depression F33.1 Active/Remission status: currently active Depression Type: major depressive disorder Major depression episode severity: moderate Major depression recurrence: recurrent Hyperlipidemia E78.5 Hyperlipidemia type: unspecified (1) Atrial fibrillation Atrial fibrillation type: unspecified Qualified Code(s): I48.91 - Unspecified atrial fibrillation (2) Depression Active/Remission status: currently active Depression Type: major depressive disorder Major depression episode severity: moderate Major depression recurrence: recurrent Qualified Code(s): F33.1 - Major depressive disorder, recurrent, moderate (3) Hyperlipidemia Hyperlipidemia type: unspecified Qualified Code(s): E78.5 - Hyperlipidemia, unspecified (4) Sepsis Sepsis acute organ dysfunction status: unspecified Sepsis type: sepsis due to unspecified organism Qualified Code(s): A41.9 - Sepsis, unspecified organism (5) Hypertension Hypertension type: essential hypertension Qualified Code(s): I10 - Essential (primary) hypertension
[2020-01-31] MEDS: PANTOprazole 40 MG TAB PO SCH (07:56)
[2020-01-31] MEDS: ENOXAPARIN INJ 40 MG/0.4 ML SYR SQ SCH ×2 (07:56→20:42)
[2020-01-31] MEDS: PARoxetine HCL 20 MG TAB PO SCH (07:57)
[2020-01-31 08:33] LABS: Hematocrit (blood only) 47.5 % (42-52); Hemoglobin 15.7 g/dL (14.0-18.0); Mean Corpuscular Hemoglobin 30.1 pg (25-34); Mean Corpuscular Hgb Conc 33.1 g/dL (32-36); Mean Platelet Volume 9.3 fL (7.4-10.4); Platelet Count 367 K/uL (130-400); RDW Coefficient of Variation 14.4 % (11.5-14.5); RDW Standard Deviation 48.2 fL (36.4-46.3); Red Blood Count 5.22 M/uL (4.7-6.1); White Blood Count 7.49 K/uL (4.8-10.8)
[2020-01-31 09:04] LABS: BUN Creatinine Ratio 26.4 (10-20); Calcium 9.1 mg/dl (8.5-10.1); Creatinine Clr Calc Pharmacy 66.4 ml/min; Est GFR (African American) 91.4; Est GFR (Non-African American) 78.9; Potassium 4.1 mmol/L (3.5-5.1)
[2020-01-31] MEDS: SIMVASTATIN 10 MG TAB PO SCH (20:43)
[2020-02-01] MEDS: ENOXAPARIN INJ 40 MG/0.4 ML SYR SQ SCH ×2 (07:57→20:47)
[2020-02-01] MEDS: PANTOprazole 40 MG TAB PO SCH (07:58)
[2020-02-01] MEDS: PARoxetine HCL 20 MG TAB PO SCH (07:58)
--- NOTE | 2020-02-01 16:23 | Hospitalist Progress Note ---
Date of Service February 01, 2020 Assessment & Plan (1) Acute respiratory failure with hypoxia: due to COVID 19 currently stable on room air for several days confusion is cleared but has some remnants of memory dysfunction which makes me concerned for him being home alone covid testing 01/29 is now NEGATIVE repeat test sent today, need two negative tests for discharge (2) COVID-19: 84yo C male with history of HTN, HLP and atrial fibrillation, recent travel from [place], [place] presenting with fevers/chills/rigors/diarrhea/SOB and hypoxia. Found to be positive for SARS-CoV-2. CXR with airspace disease more prevalent on the right. Patient hypoxic on arrival, now improved without symptoms tolerating room air. Airborne precautions, continues in negative pressure until he has two negative tests Dexamethasone 6mg IV daily for 10 days last dose 01/31/2020 Completed Remdesivir last dose 01/25/2020 Zithromax stopped due to prolonged QT Briefly considered enrollment in convalescent plasma,but since D Dimer is reducing and oxygen requirements did not pursue convalescent plasma at this point DNR/DNI (3) Pulmonary edema: resolved (4) Sepsis: initially Patient febrile, tachycardic, tachypneic, hypoxic with leukocytosis. Source Covid-19 pneumonia, possibly secondary bacterial PNA as well - procalcitonin minimally elevated, completed Rocephin 7 day therapy - cultures are negative to date (5) Acquired hypothyroidism: Chronic. TSH within normal limits. (6) Atrial fibrillation: Is paced at this time Previously has not been on anticoagulation -Telemetry monitoring, paced (7) Hypertension: Patient hypotensive in setting of sepsis now resolved -blood pressure is stable with no treatment (8) Depression: Chronic. Patient has Paroxetine 40mg po daily listed on his medication resume (9) Hyperlipidemia: Chronic did resume statin Ppx - Lovenox 40mg BID Code - DNR/DNI remains in negative pressure room Admission and Anticipated Discharge Date Admission Date: January 20, 2020 Anticipated date of discharge: 02/03/20 Subjective patient doing great, breathing well on room air he is eating well, making a lot of urine, moving bowels his COVID test from 01/29 came back negative today, will repeat today, need two negative tests updated his daughter today she has concerns about confusion discussed causes of hospital delirium, he is certainly set up for this his symptoms wax and wane, he does not have his hearing aids, he has not seen family, everyone wearing a mask for over a week discussed that best thing for him will be rehab and then home, should improve his mental status Review of Systems Review of Systems: All systems reviewed & are unremarkable except as noted in HPI & below Physical Exam Constitutional: well developed and well nourished; no acute distress Eyes: PERRL, conjunctivae normal, anicteric sclerae ENMT: external ear and nose normal, oropharynx normal Ears: + hearing impairment Neck: trachea midline, no thyromegaly Respiratory: normal respiratory effort; no labored breathing, no cough and not tachypneic Auscultation: no crackles, no rhonchi and no wheezes Cardiovascular: RRR, no murmur, no edema Gastrointestinal (Abdomen): normal bowel sounds, soft, nontender, no hepatosplenomegaly Musculoskeletal: no cyanosis or clubbing, extremities motor strength 5/5 Skin: no rashes, warm and dry Neurologic: patellar DTR's 2+ bilat, sensation intact and PERRL, EOMI, accommodation nl, no face palsy, no dysarthria Psychiatric: A+Ox3, euthymic affect Lymphatic: no cervical or axillary lymphadenopathy Results & Data Results & Data ([facility]) Vital Signs (Past 12 Hours) Vital Signs Temp Pulse Resp BP Pulse Ox 02/01/20 12:00 36.6 C 62 18 132/78 94 02/01/20 09:04 36.6 C 73 16 92/62 L 98 02/01/20 04:31 36.6 C 62 16 144/74 H 93 Laboratory Results Laboratory Results - last 24 hr 01/30/20 02/01/20 15:45 Unknown SARS-CoV-2 RNA (RT-PCR) NEGATIVE Pending PG Care Time/CCT Total # of Minutes Spent Total Time Spent with Patient: Total time spent is greater than 50% in coordination of care (as documented) at patient's floor/unit and/or counseling patient: Coding Level of Care Code 62612 Subseq Hosp Care Lvl 2 Diagnoses Acute respiratory failure with hypoxia J96.01 COVID-19 U07.1 Pulmonary edema J81.1 Sepsis A41.9 Sepsis acute organ dysfunction status: unspecified Sepsis type: sepsis due to unspecified organism Acquired hypothyroidism E03.9 Atrial fibrillation I48.91 Atrial fibrillation type: unspecified Hypertension I10 Hypertension type: essential hypertension Depression F33.1 Active/Remission status: currently active Depression Type: major depressive disorder Major depression episode severity: moderate Major depression recurrence: recurrent Hyperlipidemia E78.5 Hyperlipidemia type: unspecified (1) Atrial fibrillation Atrial fibrillation type: unspecified Qualified Code(s): I48.91 - Unspecified atrial fibrillation (2) Depression Active/Remission status: currently active Depression Type: major depressive disorder Major depression episode severity: moderate Major depression recurrence: recurrent Qualified Code(s): F33.1 - Major depressive disorder, recurrent, moderate (3) Hyperlipidemia Hyperlipidemia type: unspecified Qualified Code(s): E78.5 - Hyperlipidemia, unspecified (4) Sepsis Sepsis acute organ dysfunction status: unspecified Sepsis type: sepsis due to unspecified organism Qualified Code(s): A41.9 - Sepsis, unspecified organism (5) Hypertension Hypertension type: essential hypertension Qualified Code(s): I10 - Essential (primary) hypertension
[2020-02-01] MEDS: SIMVASTATIN 10 MG TAB PO SCH (20:48)
[2020-02-02] MEDS: PANTOprazole 40 MG TAB PO SCH (09:02)
[2020-02-02] MEDS: ENOXAPARIN INJ 40 MG/0.4 ML SYR SQ SCH ×2 (09:02→20:11)
[2020-02-02] MEDS: PARoxetine HCL 20 MG TAB PO SCH (09:03)
--- NOTE | 2020-02-02 15:38 | Hospitalist Progress Note ---
Date of Service February 02, 2020 Assessment & Plan (1) Acute respiratory failure with hypoxia: due to COVID 19 currently stable on room air for several days confusion is cleared, mental status will wax and wane, but he cannot hear, is isolated, out of his home environment covid testing 01/29 is now NEGATIVE repeat test sent 01/31, hopeful for result on 02/02 (2) COVID-19: 84yo C male with history of HTN, HLP and atrial fibrillation, recent travel from [place], [place] presenting with fevers/chills/rigors/diarrhea/SOB and hypoxia. Found to be positive for SARS-CoV-2. CXR with airspace disease more prevalent on the right. Patient hypoxic on arrival, now improved without symptoms tolerating room air. Airborne precautions, continues in negative pressure until he has two negative tests Dexamethasone 6mg IV daily for 10 days last dose 01/31/2020 Completed Remdesivir last dose 01/25/2020 Zithromax stopped due to prolonged QT Briefly considered enrollment in convalescent plasma,but since D Dimer is reducing and oxygen requirements did not pursue convalescent plasma at this point DNR/DNI negative test on 01/29, repeat done 01/31, follow up tomorrow for results (3) Pulmonary edema: resolved (4) Sepsis: initially Patient febrile, tachycardic, tachypneic, hypoxic with leukocytosis. Source Covid-19 pneumonia, possibly secondary bacterial PNA as well - procalcitonin minimally elevated, completed Rocephin 7 day therapy - cultures are negative to date (5) Acquired hypothyroidism: Chronic. TSH within normal limits. (6) Atrial fibrillation: Is paced at this time Previously has not been on anticoagulation -Telemetry monitoring, paced (7) Hypertension: Patient hypotensive in setting of sepsis now resolved -blood pressure is stable with no treatment (8) Depression: Chronic. Patient has Paroxetine 40mg po daily listed on his medication resume (9) Hyperlipidemia: Chronic did resume statin Ppx - Lovenox 40mg BID Code - DNR/DNI remains in negative pressure room (10) Delirium: symptoms wax and wane discussed with his daughter that he has multiple reasons for confusion he cannot hear due to lack of hearing aides, he is isolated, only people he sees are fully masked will work on orientation, feel that once he is back home he will be back to normal Admission and Anticipated Discharge Date Admission Date: January 20, 2020 Subjective patient feeling well, no complaints, eating no dyspnea or cough, no fever explained that COVID test was negative, repeat pending working on rehab plan, he agrees called his daughter for update Review of Systems Review of Systems: All systems reviewed & are unremarkable except as noted in Subjective Constitutional: + weakness (generalized); no fever, no chills, no sweats and no fatigue Respiratory: no cough and no dyspnea Cardiovascular: no chest pain and no edema Gastrointestinal: no abdominal pain, no nausea, no vomiting, no constipation and no diarrhea/loose stools Physical Exam Constitutional: well developed and well nourished; no acute distress Eyes: PERRL, conjunctivae normal, anicteric sclerae ENMT: external ear and nose normal, oropharynx normal Ears: + hearing impairment Neck: trachea midline, no thyromegaly Respiratory: normal respiratory effort; no labored breathing, no cough and not tachypneic Auscultation: no crackles, no rhonchi and no wheezes Cardiovascular: RRR, no murmur, no edema Gastrointestinal (Abdomen): normal bowel sounds, soft, nontender, no hepatosplenomegaly Musculoskeletal: no cyanosis or clubbing, extremities motor strength 5/5 Skin: no rashes, warm and dry Neurologic: patellar DTR's 2+ bilat, sensation intact and PERRL, EOMI, accommodation nl, no face palsy, no dysarthria Psychiatric: A+Ox3, euthymic affect Lymphatic: no cervical or axillary lymphadenopathy Results & Data Results & Data ([facility]) Vital Signs (Past 12 Hours) Vital Signs Temp Pulse Pulse Resp BP Pulse Ox 02/02/20 12:10 36.1 C L 60 20 114/60 94 02/02/20 07:58 36.4 C L 62 20 146/76 H 95 02/02/20 04:00 36.4 C L 61 18 133/78 95 Medications Administered Current Inpatient Medications Acetaminophen (Tylenol) 650 mg PO Q4H PRN PRN Reason: Pain or Fever Stop: 02/20/20 00:54 Last Admin: 01/21/20 17:01 Dose: 650 mg Documented by: Enoxaparin Sodium (Lovenox) 40 mg SQ Q12H [facility] Stop: 02/20/20 07:59 Last Admin: 02/02/20 09:02 Dose: 40 mg Documented by: Ondansetron HCl (Zofran) 4 mg IV Q6H PRN PRN Reason: Nausea Stop: 02/20/20 00:54 Pantoprazole Sodium (Protonix) 40 mg PO QAM [facility] Stop: 02/20/20 09:59 Last Admin: 02/02/20 09:02 Dose: 40 mg Documented by: Paroxetine HCl (Paxil) 20 mg PO DAILY [facility] Stop: 02/26/20 08:59 Last Admin: 02/02/20 09:03 Dose: 20 mg Documented by: Simvastatin (Zocor) 10 mg PO PM [facility]ON[facility] Stop: 02/24/20 20:59 Last Admin: 02/01/20 20:48 Dose: 10 mg Documented by: PG Care Time/CCT Total # of Minutes Spent Total Time Spent with Patient: Total time spent is greater than 50% in coordination of care (as documented) at patient's floor/unit and/or counseling patient: Coding Level of Care Code 32234 Subseq Hosp Care Lvl 2 Diagnoses Acute respiratory failure with hypoxia J96.01 COVID-19 U07.1 Pulmonary edema J81.1 Sepsis A41.9 Sepsis acute organ dysfunction status: unspecified Sepsis type: sepsis due to unspecified organism Acquired hypothyroidism E03.9 Atrial fibrillation I48.91 Atrial fibrillation type: unspecified Hypertension I10 Hypertension type: essential hypertension Depression F33.1 Active/Remission status: currently active Depression Type: major depressive disorder Major depression episode severity: moderate Major depression recurrence: recurrent Hyperlipidemia E78.5 Hyperlipidemia type: unspecified Delirium R41.0 (1) Atrial fibrillation Atrial fibrillation type: unspecified Qualified Code(s): I48.91 - Unspecified atrial fibrillation (2) Depression Active/Remission status: currently active Depression Type: major depressive disorder Major depression episode severity: moderate Major depression recurrence: recurrent Qualified Code(s): F33.1 - Major depressive disorder, recurrent, moderate (3) Hyperlipidemia Hyperlipidemia type: unspecified Qualified Code(s): E78.5 - Hyperlipidemia, unspecified (4) Sepsis Sepsis acute organ dysfunction status: unspecified Sepsis type: sepsis due to unspecified organism Qualified Code(s): A41.9 - Sepsis, unspecified organism (5) Hypertension Hypertension type: essential hypertension Qualified Code(s): I10 - Essential (primary) hypertension
[2020-02-02] MEDS: SIMVASTATIN 10 MG TAB PO SCH (20:11)
[2020-02-03] MEDS: ENOXAPARIN INJ 40 MG/0.4 ML SYR SQ SCH ×2 (10:29→19:26)
[2020-02-03] MEDS: PARoxetine HCL 20 MG TAB PO SCH (10:30)
[2020-02-03] MEDS: PANTOprazole 40 MG TAB PO SCH (10:30)
--- NOTE | 2020-02-03 14:45 | Hospitalist Progress Note ---
Date of Service February 03, 2020 Assessment & Plan (1) Acute respiratory failure with hypoxia: due to COVID 19 currently stable on room air for several days confusion is cleared, mental status will wax and wane, but he cannot hear, is isolated, out of his home environment covid testing 01/29 is now NEGATIVE repeat test sent 01/31, NEGATIVE result (2) COVID-19: 84yo C male with history of HTN, HLP and atrial fibrillation, recent travel from [place], [place] presenting with fevers/chills/rigors/diarrhea/SOB and hypoxia. Found to be positive for SARS-CoV-2. CXR with airspace disease more prevalent on the right. Patient hypoxic on arrival, now improved without symptoms tolerating room air. Airborne precautions, continues in negative pressure until he has two negative tests Dexamethasone 6mg IV daily for 10 days last dose 01/31/2020 Completed Remdesivir last dose 01/25/2020 Zithromax stopped due to prolonged QT Briefly considered enrollment in convalescent plasma,but since D Dimer is reducing and oxygen requirements did not pursue convalescent plasma at this point DNR/DNI negative test on 01/29, repeat done 01/31 is also negative, will downgrade to medical floor, remove isolation work on discharge to SNF (3) Pulmonary edema: resolved (4) Sepsis: initially Patient febrile, tachycardic, tachypneic, hypoxic with leukocytosis. Source Covid-19 pneumonia, possibly secondary bacterial PNA as well - procalcitonin minimally elevated, completed Rocephin 7 day therapy - cultures are negative to date (5) Acquired hypothyroidism: Chronic. TSH within normal limits. (6) Atrial fibrillation: Is paced at this time Previously has not been on anticoagulation -Telemetry monitoring, paced can move to medical floor (7) Hypertension: Patient hypotensive in setting of sepsis now resolved -blood pressure is stable with no treatment (8) Depression: Chronic. Patient has Paroxetine 40mg po daily listed on his medication continue (9) Hyperlipidemia: Chronic did resume statin Ppx - Lovenox 40mg BID Code - DNR/DNI remains in negative pressure room (10) Delirium: symptoms wax and wane discussed with his daughter that he has multiple reasons for confusion he cannot hear due to lack of hearing aides, he is isolated, only people he sees are fully masked will work on orientation, feel that once he is back home he will be back to normal Admission and Anticipated Discharge Date Admission Date: January 20, 2020 Subjective patient doing great, sitting out of bed in chair urinating well, moving his bowels, eating well no issues breathing, no cough, no chest pain, no fever COVID test from 01/31 is now negative, will downgrade, remove isolation called his daughter Bria to give her an update talked with CM, hopeful for discharge to SNF rehab in next few days now that COVID is negative no labs today Review of Systems Review of Systems: All systems reviewed & are unremarkable except as noted in Subjective Physical Exam Constitutional: well developed and well nourished; no acute distress Eyes: PERRL, conjunctivae normal, anicteric sclerae ENMT: external ear and nose normal, oropharynx normal Ears: + hearing impairment Neck: trachea midline, no thyromegaly Respiratory: normal respiratory effort; no labored breathing, no cough and not tachypneic Auscultation: no crackles, no rhonchi and no wheezes Cardiovascular: RRR, no murmur, no edema Gastrointestinal (Abdomen): normal bowel sounds, soft, nontender, no hepatosplenomegaly Musculoskeletal: no cyanosis or clubbing, extremities motor strength 5/5 Skin: no rashes, warm and dry Neurologic: patellar DTR's 2+ bilat, sensation intact and PERRL, EOMI, accommodation nl, no face palsy, no dysarthria Psychiatric: A+Ox3, euthymic affect Lymphatic: no cervical or axillary lymphadenopathy Results & Data Results & Data ([facility]) Vital Signs (Past 12 Hours) Vital Signs Temp Pulse Pulse Resp BP BP Pulse Ox 02/03/20 12:51 36.5 C 70 16 120/69 94 02/03/20 07:46 36.4 C L 67 18 157/76 H 91 02/03/20 04:00 36.4 C L 61 18 158/78 H 92 Laboratory Results Laboratory Results - last 24 hr 02/01/20 Unknown SARS-CoV-2 RNA (RT-PCR) NEGATIVE Medications Administered Current Inpatient Medications Acetaminophen (Tylenol) 650 mg PO Q4H PRN PRN Reason: Pain or Fever Stop: 02/20/20 00:54 Last Admin: 01/21/20 17:01 Dose: 650 mg Documented by: Enoxaparin Sodium (Lovenox) 40 mg SQ Q12H JONH Stop: 02/20/20 07:59 Last Admin: 02/03/20 10:29 Dose: 40 mg Documented by: Ondansetron HCl (Zofran) 4 mg IV Q6H PRN PRN Reason: Nausea Stop: 02/20/20 00:54 Pantoprazole Sodium (Protonix) 40 mg PO QAM JONH Stop: 02/20/20 09:59 Last Admin: 02/03/20 10:30 Dose: 40 mg Documented by: Paroxetine HCl (Paxil) 20 mg PO DAILY JONH Stop: 02/26/20 08:59 Last Admin: 02/03/20 10:30 Dose: 20 mg Documented by: Simvastatin (Zocor) 10 mg PO PM JONH Stop: 02/24/20 20:59 Last Admin: 02/02/20 20:11 Dose: 10 mg Documented by: PG Care Time/CCT Total # of Minutes Spent Total Time Spent with Patient: Total time spent is greater than 50% in coordination of care (as documented) at patient's floor/unit and/or counseling patient: Coding Level of Care Code 28339 Subseq Hosp Care Lvl 2 Diagnoses Acute respiratory failure with hypoxia J96.01 COVID-19 U07.1 Pulmonary edema J81.1 Sepsis A41.9 Sepsis acute organ dysfunction status: unspecified Sepsis type: sepsis due to unspecified organism Acquired hypothyroidism E03.9 Atrial fibrillation I48.91 Atrial fibrillation type: unspecified Hypertension I10 Hypertension type: essential hypertension Depression F33.1 Depression Type: major depressive disorder Major depression recurrence: recurrent Active/Remission status: currently active Major depression episode severity: moderate Hyperlipidemia E78.5 Hyperlipidemia type: unspecified Delirium R41.0 (1) Sepsis Sepsis acute organ dysfunction status: unspecified Sepsis type: sepsis due to unspecified organism Qualified Code(s): A41.9 - Sepsis, unspecified organism (2) Atrial fibrillation Atrial fibrillation type: unspecified Qualified Code(s): I48.91 - Unspecified atrial fibrillation (3) Hypertension Hypertension type: essential hypertension Qualified Code(s): I10 - Essential (primary) hypertension (4) Depression Depression Type: major depressive disorder Major depression recurrence: recurrent Active/Remission status: currently active Major depression episode severity: moderate Qualified Code(s): F33.1 - Major depressive disorder, recurrent, moderate (5) Hyperlipidemia Hyperlipidemia type: unspecified Qualified Code(s): E78.5 - Hyperlipidemia, unspecified
[2020-02-03] MEDS: SIMVASTATIN 10 MG TAB PO SCH (19:26)
[2020-02-04] MEDS: PANTOprazole 40 MG TAB PO SCH (08:20)
[2020-02-04] MEDS: ENOXAPARIN INJ 40 MG/0.4 ML SYR SQ SCH ×2 (08:20→20:44)
[2020-02-04] MEDS: PARoxetine HCL 20 MG TAB PO SCH (08:20)
--- NOTE | 2020-02-04 16:42 | Hospitalist Progress Note ---
Date of Service February 04, 2020 Assessment & Plan (1) Acute respiratory failure with hypoxia: due to COVID 19 currently stable on room air for several days confusion is cleared, mental status will wax and wane, but he cannot hear, is isolated, out of his home environment covid testing 01/29 is now NEGATIVE repeat test sent 01/31, NEGATIVE result (2) COVID-19: 84yo C male with history of HTN, HLP and atrial fibrillation, recent travel from [place], [place] presenting with fevers/chills/rigors/diarrhea/SOB and hypoxia. Found to be positive for SARS-CoV-2. CXR with airspace disease more prevalent on the right. Patient hypoxic on arrival, now improved without symptoms tolerating room air. Airborne precautions, continues in negative pressure until he has two negative tests Dexamethasone 6mg IV daily for 10 days last dose 01/31/2020 Completed Remdesivir last dose 01/25/2020 Zithromax stopped due to prolonged QT Briefly considered enrollment in convalescent plasma,but since D Dimer is reducing and oxygen requirements did not pursue convalescent plasma at this point DNR/DNI negative test on 01/29, repeat done 01/31 is also negative, will downgrade to medical floor, remove isolation work on discharge to SNF, likely tomorrow, patient is stable for discharge (3) Pulmonary edema: resolved (4) Sepsis: initially Patient febrile, tachycardic, tachypneic, hypoxic with leukocytosis. Source Covid-19 pneumonia, possibly secondary bacterial PNA as well - procalcitonin minimally elevated, completed Rocephin 7 day therapy - cultures are negative to date (5) Acquired hypothyroidism: Chronic. TSH within normal limits. (6) Atrial fibrillation: Is paced at this time Previously has not been on anticoagulation -Telemetry monitoring, paced can move to medical floor (7) Hypertension: Patient hypotensive in setting of sepsis now resolved -blood pressure is stable with no treatment (8) Depression: Chronic. Patient has Paroxetine 40mg po daily listed on his medication continue (9) Hyperlipidemia: Chronic did resume statin (10) Delirium: symptoms wax and wane discussed with his daughter that he has multiple reasons for confusion he cannot hear due to lack of hearing aides, he is isolated, only people he sees are fully masked will work on orientation, feel that once he is back home he will be back to normal Admission and Anticipated Discharge Date Admission Date: January 20, 2020 Anticipated date of discharge: 02/05/20 Subjective resting comfortably most of the day he is alert and oriented when he wakes up eating well, no chest pain, no dyspnea, no cough, no fever d/w CM, hopeful for d/c tomorrow Review of Systems Review of Systems: All systems reviewed & are unremarkable except as noted in Subjective Physical Exam Constitutional: well developed and well nourished; no acute distress Eyes: PERRL, conjunctivae normal, anicteric sclerae ENMT: external ear and nose normal, oropharynx normal Ears: + hearing impairment Neck: trachea midline, no thyromegaly Respiratory: normal respiratory effort; no labored breathing, no cough and not tachypneic Auscultation: no crackles, no rhonchi and no wheezes Cardiovascular: RRR, no murmur, no edema Gastrointestinal (Abdomen): normal bowel sounds, soft, nontender, no hepatosplenomegaly Musculoskeletal: no cyanosis or clubbing, extremities motor strength 5/5 Skin: no rashes, warm and dry Neurologic: patellar DTR's 2+ bilat, sensation intact and PERRL, EOMI, accommodation nl, no face palsy, no dysarthria Psychiatric: A+Ox3, euthymic affect Lymphatic: no cervical or axillary lymphadenopathy Results & Data Results & Data ([facility]) Vital Signs (Past 12 Hours) Vital Signs Temp Pulse Resp BP Pulse Ox 02/04/20 14:55 36.6 C 97 H 16 107/57 L 92 02/04/20 08:37 36.5 C 60 18 138/75 97 Medications Administered Current Inpatient Medications Acetaminophen (Tylenol) 650 mg PO Q4H PRN PRN Reason: Pain or Fever Stop: 02/20/20 00:54 Last Admin: 01/21/20 17:01 Dose: 650 mg Documented by: Enoxaparin Sodium (Lovenox) 40 mg SQ Q12H [facility] Stop: 02/20/20 07:59 Last Admin: 02/04/20 08:20 Dose: 40 mg Documented by: Ondansetron HCl (Zofran) 4 mg IV Q6H PRN PRN Reason: Nausea Stop: 02/20/20 00:54 Pantoprazole Sodium (Protonix) 40 mg PO QAM JONH Stop: 02/20/20 09:59 Last Admin: 02/04/20 08:20 Dose: 40 mg Documented by: Paroxetine HCl (Paxil) 20 mg PO DAILY JONH Stop: 02/26/20 08:59 Last Admin: 02/04/20 08:20 Dose: 20 mg Documented by: Simvastatin (Zocor) 10 mg PO PM JONH Stop: 02/24/20 20:59 Last Admin: 02/03/20 19:26 Dose: 10 mg Documented by: PG Care Time/CCT Total # of Minutes Spent Total Time Spent with Patient: Total time spent is greater than 50% in coordination of care (as documented) at patient's floor/unit and/or counseling patient: Coding Level of Care Code 11731 Subseq Hosp Care Lvl 2 Diagnoses Acute respiratory failure with hypoxia J96.01 COVID-19 U07.1 Pulmonary edema J81.1 Sepsis A41.9 Sepsis acute organ dysfunction status: unspecified Sepsis type: sepsis due to unspecified organism Acquired hypothyroidism E03.9 Atrial fibrillation I48.91 Atrial fibrillation type: unspecified Hypertension I10 Hypertension type: essential hypertension Depression F33.1 Active/Remission status: currently active Depression Type: major depressive disorder Major depression episode severity: moderate Major depression recurrence: recurrent Hyperlipidemia E78.5 Hyperlipidemia type: unspecified Delirium R41.0 (1) Atrial fibrillation Atrial fibrillation type: unspecified Qualified Code(s): I48.91 - Unspecified atrial fibrillation (2) Depression Active/Remission status: currently active Depression Type: major depressive disorder Major depression episode severity: moderate Major depression recurrence: recurrent Qualified Code(s): F33.1 - Major depressive disorder, recurrent, moderate (3) Hyperlipidemia Hyperlipidemia type: unspecified Qualified Code(s): E78.5 - Hyperlipidemia, unspecified (4) Sepsis Sepsis acute organ dysfunction status: unspecified Sepsis type: sepsis due to unspecified organism Qualified Code(s): A41.9 - Sepsis, unspecified organism (5) Hypertension Hypertension type: essential hypertension Qualified Code(s): I10 - Essential (primary) hypertension
[2020-02-04] MEDS: SIMVASTATIN 10 MG TAB PO SCH (20:43)
[2020-02-05] MEDS: ENOXAPARIN INJ 40 MG/0.4 ML SYR SQ SCH ×2 (07:33→20:47)
[2020-02-05] MEDS: PANTOprazole 40 MG TAB PO SCH (09:19)
[2020-02-05] MEDS: PARoxetine HCL 20 MG TAB PO SCH (09:19)
--- NOTE | 2020-02-05 16:18 | Hospitalist Progress Note ---
Date of Service February 05, 2020 Assessment & Plan (1) Acute respiratory failure with hypoxia: due to COVID 19 currently stable on room air for several days confusion is cleared, mental status will wax and wane, but he cannot hear, is isolated, out of his home environment covid testing 01/29 is now NEGATIVE repeat test sent 01/31, NEGATIVE result (2) COVID-19: 84yo C male with history of HTN, HLP and atrial fibrillation, recent travel from [place], [place] presenting with fevers/chills/rigors/diarrhea/SOB and hypoxia. Found to be positive for SARS-CoV-2. CXR with airspace disease more prevalent on the right. Patient hypoxic on arrival, now improved without symptoms tolerating room air. Airborne precautions, continues in negative pressure until he has two negative tests Dexamethasone 6mg IV daily for 10 days last dose 01/31/2020 Completed Remdesivir last dose 01/25/2020 Zithromax stopped due to prolonged QT Briefly considered enrollment in convalescent plasma,but since D Dimer is reducing and oxygen requirements did not pursue convalescent plasma at this point DNR/DNI negative test on 01/29, repeat done 01/31 is also negative, will downgrade to medical floor, remove isolation work on discharge to home on Saturday, SNF was denied by insurance (3) Pulmonary edema: resolved (4) Sepsis: initially Patient febrile, tachycardic, tachypneic, hypoxic with leukocytosis. Source Covid-19 pneumonia, possibly secondary bacterial PNA as well - procalcitonin minimally elevated, completed Rocephin 7 day therapy - cultures are negative to date (5) Acquired hypothyroidism: Chronic. TSH within normal limits. (6) Atrial fibrillation: Is paced at this time Previously has not been on anticoagulation -Telemetry monitoring, paced can move to medical floor (7) Hypertension: Patient hypotensive in setting of sepsis now resolved -blood pressure is stable with no treatment (8) Depression: Chronic. Patient has Paroxetine 40mg po daily listed on his medication continue (9) Hyperlipidemia: Chronic did resume statin (10) Delirium: symptoms wax and wane discussed with his daughter that he has multiple reasons for confusion he cannot hear due to lack of hearing aides, he is isolated, only people he sees are fully masked will work on orientation, feel that once he is back home he will be back to normal Admission and Anticipated Discharge Date Admission Date: January 20, 2020 Subjective patient doing well, trying to shave with electric razor, getting frustrated he says he is eating well, no dyspnea, no cough, no fever received notice from insurance that he would be denied rehab d/w daughter Bria, family should be able to be with him on Saturday will call her tomorrow to check on the plan feel that he needs family to be with him for safe discharge plan Review of Systems Review of Systems: All systems reviewed & are unremarkable except as noted in Subjective Physical Exam Constitutional: well developed and well nourished; no acute distress Eyes: PERRL, conjunctivae normal, anicteric sclerae ENMT: external ear and nose normal, oropharynx normal Ears: + hearing impairment Neck: trachea midline, no thyromegaly Respiratory: normal respiratory effort; no labored breathing, no cough and not tachypneic Auscultation: no crackles, no rhonchi and no wheezes Cardiovascular: RRR, no murmur, no edema Gastrointestinal (Abdomen): normal bowel sounds, soft, nontender, no hepatosplenomegaly Musculoskeletal: no cyanosis or clubbing, extremities motor strength 5/5 Skin: no rashes, warm and dry Neurologic: patellar DTR's 2+ bilat, sensation intact and PERRL, EOMI, accommodation nl, no face palsy, no dysarthria Psychiatric: A+Ox3, euthymic affect Lymphatic: no cervical or axillary lymphadenopathy Results & Data Results & Data ([facility]) Vital Signs (Past 12 Hours) Vital Signs Temp Pulse Resp BP Pulse Ox 02/05/20 14:55 36.7 C 70 18 120/72 94 02/05/20 07:24 36.5 C 59 L 19 128/69 93 Medications Administered Current Inpatient Medications Acetaminophen (Tylenol) 650 mg PO Q4H PRN PRN Reason: Pain or Fever Stop: 02/20/20 00:54 Last Admin: 01/21/20 17:01 Dose: 650 mg Documented by: Enoxaparin Sodium (Lovenox) 40 mg SQ Q12H JONH Stop: 02/20/20 07:59 Last Admin: 02/05/20 07:33 Dose: 40 mg Documented by: Ondansetron HCl (Zofran) 4 mg IV Q6H PRN PRN Reason: Nausea Stop: 02/20/20 00:54 Pantoprazole Sodium (Protonix) 40 mg PO QAM JONH Stop: 02/20/20 09:59 Last Admin: 02/05/20 09:19 Dose: 40 mg Documented by: Paroxetine HCl (Paxil) 20 mg PO DAILY ON LICENSE OF [facility] Stop: 02/26/20 08:59 Last Admin: 02/05/20 09:19 Dose: 20 mg Documented by: Simvastatin (Zocor) 10 mg PO PM JONH Stop: 02/24/20 20:59 Last Admin: 02/04/20 20:43 Dose: 10 mg Documented by: PG Care Time/CCT Total # of Minutes Spent Total Time Spent with Patient: Total time spent is greater than 50% in coordination of care (as documented) at patient's floor/unit and/or counseling patient: Coding Level of Care Code 17064 Subseq Hosp Care Lvl 1 Diagnoses Acute respiratory failure with hypoxia J96.01 COVID-19 U07.1 Pulmonary edema J81.1 Sepsis A41.9 Sepsis acute organ dysfunction status: unspecified Sepsis type: sepsis due to unspecified organism Acquired hypothyroidism E03.9 Atrial fibrillation I48.91 Atrial fibrillation type: unspecified Hypertension I10 Hypertension type: essential hypertension Depression F33.1 Depression Type: major depressive disorder Major depression recurrence: recurrent Active/Remission status: currently active Major depression episode severity: moderate Hyperlipidemia E78.5 Hyperlipidemia type: unspecified Delirium R41.0 (1) Sepsis Sepsis acute organ dysfunction status: unspecified Sepsis type: sepsis due to unspecified organism Qualified Code(s): A41.9 - Sepsis, unspecified organism (2) Atrial fibrillation Atrial fibrillation type: unspecified Qualified Code(s): I48.91 - Unspecified atrial fibrillation (3) Hypertension Hypertension type: essential hypertension Qualified Code(s): I10 - Essential (primary) hypertension (4) Depression Depression Type: major depressive disorder Major depression recurrence: recurrent Active/Remission status: currently active Major depression episode severity: moderate Qualified Code(s): F33.1 - Major depressive disorder, recurrent, moderate (5) Hyperlipidemia Hyperlipidemia type: unspecified Qualified Code(s): E78.5 - Hyperlipidemia, unspecified
[2020-02-05] MEDS: SIMVASTATIN 10 MG TAB PO SCH (20:47)
[2020-02-06] MEDS: PANTOprazole 40 MG TAB PO SCH (08:07)
[2020-02-06] MEDS: PARoxetine HCL 20 MG TAB PO SCH (08:07)
[2020-02-06] MEDS: ENOXAPARIN INJ 40 MG/0.4 ML SYR SQ SCH ×2 (08:07→20:22)
--- NOTE | 2020-02-06 12:03 | Hospitalist Progress Note ---
Date of Service February 06, 2020 Assessment & Plan (1) Acute respiratory failure with hypoxia: due to COVID 19 currently stable on room air for several days confusion is cleared, mental status will wax and wane, but he cannot hear, is isolated, out of his home environment covid testing 01/29 is now NEGATIVE repeat test sent 01/31, NEGATIVE result (2) COVID-19: 84yo C male with history of HTN, HLP and atrial fibrillation, recent travel from [place], [place] presenting with fevers/chills/rigors/diarrhea/SOB and hypoxia. Found to be positive for SARS-CoV-2. CXR with airspace disease more prevalent on the right. Patient hypoxic on arrival, now improved without symptoms tolerating room air. Airborne precautions, continues in negative pressure until he has two negative tests Dexamethasone 6mg IV daily for 10 days last dose 01/31/2020 Completed Remdesivir last dose 01/25/2020 Zithromax stopped due to prolonged QT Briefly considered enrollment in convalescent plasma,but since D Dimer is reducing and oxygen requirements did not pursue convalescent plasma at this point DNR/DNI negative test on 01/29, repeat done 01/31 is also negative, will downgrade to medical floor, remove isolation work on discharge to home on Saturday, SNF was denied by insurance (3) Pulmonary edema: resolved (4) Sepsis: initially Patient febrile, tachycardic, tachypneic, hypoxic with leukocytosis. Source Covid-19 pneumonia, possibly secondary bacterial PNA as well - procalcitonin minimally elevated, completed Rocephin 7 day therapy - cultures are negative to date (5) Acquired hypothyroidism: Chronic. TSH within normal limits. (6) Atrial fibrillation: Is paced at this time Previously has not been on anticoagulation -Telemetry monitoring, paced can move to medical floor (7) Hypertension: Patient hypotensive in setting of sepsis now resolved -blood pressure is stable with no treatment (8) Depression: Chronic. Patient has Paroxetine 40mg po daily listed on his medication continue (9) Hyperlipidemia: Chronic did resume statin (10) Delirium: symptoms wax and wane discussed with his daughter that he has multiple reasons for confusion he cannot hear due to lack of hearing aides, he is isolated, only people he sees are fully masked will work on orientation, feel that once he is back home he will be back to normal Admission and Anticipated Discharge Date Admission Date: January 20, 2020 Subjective patient doing great, sitting up in chair ate his entire breakfast no labs today discussed going home tomorrow with family, he is excited to go breathing is stable, no cough, no fever/chills, no nausea Review of Systems Review of Systems: All systems reviewed & are unremarkable except as noted in Subjective Physical Exam Constitutional: well developed and well nourished; no acute distress Eyes: PERRL, conjunctivae normal, anicteric sclerae ENMT: external ear and nose normal, oropharynx normal Ears: + hearing impairment Neck: trachea midline, no thyromegaly Respiratory: normal respiratory effort; no labored breathing, no cough and not tachypneic Auscultation: no crackles, no rhonchi and no wheezes Cardiovascular: RRR, no murmur, no edema Gastrointestinal (Abdomen): normal bowel sounds, soft, nontender, no hepatosplenomegaly Musculoskeletal: no cyanosis or clubbing, extremities motor strength 5/5 Skin: no rashes, warm and dry Neurologic: patellar DTR's 2+ bilat, sensation intact and PERRL, EOMI, accommodation nl, no face palsy, no dysarthria Psychiatric: A+Ox3, euthymic affect Lymphatic: no cervical or axillary lymphadenopathy Results & Data Results & Data ([facility]) Vital Signs (Past 12 Hours) Vital Signs Temp Pulse Resp BP Pulse Ox 02/06/20 07:42 36.6 C 73 18 137/79 95 Medications Administered Current Inpatient Medications Acetaminophen (Tylenol) 650 mg PO Q4H PRN PRN Reason: Pain or Fever Stop: 02/20/20 00:54 Last Admin: 01/21/20 17:01 Dose: 650 mg Documented by: Enoxaparin Sodium (Lovenox) 40 mg SQ Q12H [facility] Stop: 02/20/20 07:59 Last Admin: 02/06/20 08:07 Dose: 40 mg Documented by: Ondansetron HCl (Zofran) 4 mg IV Q6H PRN PRN Reason: Nausea Stop: 02/20/20 00:54 Pantoprazole Sodium (Protonix) 40 mg PO QAM [facility] Stop: 02/20/20 09:59 Last Admin: 02/06/20 08:07 Dose: 40 mg Documented by: Paroxetine HCl (Paxil) 20 mg PO DAILY [facility] Stop: 02/26/20 08:59 Last Admin: 02/06/20 08:07 Dose: 20 mg Documented by: Simvastatin (Zocor) 10 mg PO PM [facility] Stop: 02/24/20 20:59 Last Admin: 02/05/20 20:47 Dose: 10 mg Documented by: PG Care Time/CCT Total # of Minutes Spent Total Time Spent with Patient: Total time spent is greater than 50% in coordination of care (as documented) at patient's floor/unit and/or counseling patient: Coding Level of Care Code 41584 Subseq Hosp Care Lvl 1 Diagnoses Acute respiratory failure with hypoxia J96.01 COVID-19 U07.1 Pulmonary edema J81.1 Sepsis A41.9 Sepsis acute organ dysfunction status: unspecified Sepsis type: sepsis due to unspecified organism Acquired hypothyroidism E03.9 Atrial fibrillation I48.91 Atrial fibrillation type: unspecified Hypertension I10 Hypertension type: essential hypertension Depression F33.1 Depression Type: major depressive disorder Major depression recurrence: recurrent Active/Remission status: currently active Major depression episode severity: moderate Hyperlipidemia E78.5 Hyperlipidemia type: unspecified Delirium R41.0 (1) Sepsis Sepsis acute organ dysfunction status: unspecified Sepsis type: sepsis due to unspecified organism Qualified Code(s): A41.9 - Sepsis, unspecified organism (2) Atrial fibrillation Atrial fibrillation type: unspecified Qualified Code(s): I48.91 - Unspecified atrial fibrillation (3) Hypertension Hypertension type: essential hypertension Qualified Code(s): I10 - Essential (primary) hypertension (4) Depression Depression Type: major depressive disorder Major depression recurrence: recurrent Active/Remission status: currently active Major depression episode severity: moderate Qualified Code(s): F33.1 - Major depressive disorder, recurrent, moderate (5) Hyperlipidemia Hyperlipidemia type: unspecified Qualified Code(s): E78.5 - Hyperlipidemia, unspecified
[2020-02-06] MEDS: SIMVASTATIN 10 MG TAB PO SCH (20:22)
[2020-02-07] MEDS: PARoxetine HCL 20 MG TAB PO SCH (09:49)
[2020-02-07] MEDS: ENOXAPARIN INJ 40 MG/0.4 ML SYR SQ SCH (09:49)
[2020-02-07] MEDS: PANTOprazole 40 MG TAB PO SCH (09:49)
--- NOTE | 2020-02-07 16:05 | Discharge Summary ---
Date of Service February 07, 2020 Admission HPI Per Admitting Provider History obtained from daughter, chart review and discussion with ER staff as patient is altered and unable to provide accurate details at this time. Ned Suggs is an 84yo C male with history of HTN, HLP, Atrial fibrillation. Patient recently his . He was residing alone in [place], [place] until recently when he moved to [facility] to be closer to family. Patient arrived in [facility] yesterday afternoon around 13:00. Daughter reports that he has been in bed sleeping since then. She also reports that he has been acting quite strangely since he arrived here - making a "horse" noise, sticking his tongue out and talking in his sleep. Today around 15:30 he developed rigors, a slight cough with complaint of "something being stuck in his throat" as well as acute shortness of breath. He also had an episode of diarrhea and bowel incontinence. On arrival to the ER patient found to be febrile at 39.2, tachycardic at 110bpm, stable blood pressure. He was tachypneic at 29 bpm and saturating 77% on room air. He was placed on a non-rebreather with improvement in his saturations. He became hypotensive to 83/47 and was administered 2L NSS with improvement in blood pressure. Covid-19 PCR POSITIVE. Daughter reports that the patient attends [employer] every week. He also had a going away republican prior to leaving [place] where he went out to dinner with a number of friends. ER Course: Tylenol, Cefepime, Vancomycin, NSS x 2L Principal Diagnosis COVID 19 infection causing acute hypoxic respiratory failure Discharge Exam Constitutional well developed and well nourished; no acute distress Eyes PERRL, conjunctivae normal, anicteric sclerae ENMT external ear and nose normal, oropharynx normal Ears: + hearing impairment Neck trachea midline, no thyromegaly Respiratory normal respiratory effort; no labored breathing, no cough and not tachypneic Auscultation: no crackles, no rhonchi and no wheezes Cardiovascular RRR, no murmur, no edema Gastrointestinal (Abdomen) normal bowel sounds, soft, nontender, no hepatosplenomegaly Musculoskeletal no cyanosis or clubbing, extremities motor strength 5/5 Skin no rashes, warm and dry Neurologic patellar DTR's 2+ bilat, sensation intact and PERRL, EOMI, accommodation nl, no face palsy, no dysarthria Psychiatric A+Ox3, euthymic affect Lymphatic no cervical or axillary lymphadenopathy Discharge Data Allergies Allergy/AdvReac Type Severity Reaction Status Date / Time No Known Allergies Allergy Unverified 06/02/18 15:46 Consultations 01/20/20 21:53 ED Decision to Admit Stat 01/21/20 00:55 Consult Pulmonology Routine Ordered Studies 01/20/20 20:06 CT head/brain wo con Urgent Hospital Course (1) Acute respiratory failure with hypoxia: due to COVID 19 currently stable on room air for several days confusion is cleared, mental status will wax and wane, but he cannot hear, is isolated, out of his home environment covid testing 01/29 is now NEGATIVE repeat test sent 01/31, NEGATIVE result (2) COVID-19: 84yo C male with history of HTN, HLP and atrial fibrillation, recent travel from [place], [place] presenting with fevers/chills/rigors/diarrhea/SOB and hypoxia. Found to be positive for SARS-CoV-2. CXR with airspace disease more prevalent on the right. Patient hypoxic on arrival, now improved without symptoms tolerating room air. Airborne precautions, continues in negative pressure until he has two negative tests Dexamethasone 6mg IV daily for 10 days last dose 01/31/2020 Completed Remdesivir last dose 01/25/2020 Zithromax stopped due to prolonged QT Briefly considered enrollment in convalescent plasma,but since D Dimer is reduc ing and oxygen requirements did not pursue convalescent plasma at this point DNR/DNI negative test on 01/29, repeat done 01/31 is also negative, will downgrade to medical floor, remove isolation discharge to home with his daughter today she will stay with him the next week, help him get acclimated to home (3) Pulmonary edema: resolved (4) Sepsis: initially Patient febrile, tachycardic, tachypneic, hypoxic with leukocytosis. Source Covid-19 pneumonia, possibly secondary bacterial PNA as well - procalcitonin minimally elevated, completed Rocephin 7 day therapy - cultures are negative to date (5) Acquired hypothyroidism: Chronic. TSH within normal limits. (6) Atrial fibrillation: Is paced at this time Previously has not been on anticoagulation -Telemetry monitoring, paced can move to medical floor (7) Hypertension: Patient hypotensive in setting of sepsis now resolved -blood pressure is stable with no treatment (8) Depression: Chronic. Patient has Paroxetine 40mg po daily listed on his medication continue (9) Hyperlipidemia: Chronic did resume statin (10) Delirium: symptoms wax and wane discussed with his daughter that he has multiple reasons for confusion he cannot hear due to lack of hearing aides, he is isolated, only people he sees are fully masked will work on orientation, feel that once he is back home he will be back to normal Total Time Total Time Spent Total Time Spent (In Minutes): 32 minutes Total Time Includes: Examination of the Patient, Discharge Planning, Medication Reconciliation and Other (talked with his daughter Bria) Discharge Plan Discharge Items Patient Disposition: Home - Self-Care Reason For Visit: COVID-19 INFECTION, SEPSIS Discharge Diagnosis: COVID 19 infection, resolved Pneumonia, resolved Altered mental status, delirium, resolved Acute hypoxic respiratory failure, resolved Condition on Discharge: Good Goals: improve strength and mobility stay well hydrated and well nourished Activity: Resume your previous activity Driving/Machine Use: do not drive until you follow up with physician Weightbearing: Full weightbearing Non-emergency contact: Primary Care Provider Call non-emergency contact if: you have any medication questions and your symptoms worsen Follow-up/Referrals: Leonie Mcdaniel MD [Primary Care Provider] - (one week) Diet: Regular Addtl Attending Provider Instructions: Medications: no changes you completed treatment for COVID 19 as well as bacterial pneumonia while you were admitted COVID 19 with viral pneumonia, hypoxia, secondary bacterial pneumonia, sepsis you have been stable for nearly a week, no oxygen required, vitals stable, breathing well, eating well will discharge to home with family work on increasing your strength, stay well nourished and well hydrated you were treated successfully with Dexamethasone and Remdesvimir for COVID 19 you completed 7 days of Cefepime for pneumonia labs have been stable when checked you have had two negative COVID 19 tests, first on 01/29 and then again on 01/31, you are not contagious, no restrictions needed Pending Studies at Discharge: No Stand-Alone Forms: My [employer], Smoking Cessation Medications and DC Order Prescriptions: Continued paroxetine HCl 40 mg tablet 40 mg PO DAILY Qty: 30 RF: 0 levothyroxine 25 mcg tablet See Rx Instructions .ROUTE .COMPLEX Qty: 90 RF: 1 simvastatin 10 mg tablet See Rx Instructions .ROUTE .COMPLEX Qty: 90 RF: 0 multivitamin Tablet 1 tab PO DAILY RF: 0 cyanocobalamin (vitamin B-12) [Vitamin B-12] 500 mcg Tablet 500 mcg PO DAILY RF: 0 cholecalciferol (vitamin D3) [Vitamin D3] 1,000 unit Tablet 1,000 unit PO DAILY RF: 0 psyllium husk [Metamucil] 3.4 gram/5.4 gram Powder 1 tbsp PO DAILY PRN (Reason: Constipation) RF: 0 Discharge Orders: Discharge Order (Routine); Ordered 02/07/20 Ordered By: Vincent Sen/Other Patient Handouts: What Is Pneumonia?, How COVID-19 Spreads, Simple Ways to Avoid COVID-19, Symptoms of COVID-19 Infection Admission Data Admit Date/Time: 01/20/20 23:14 Attending Provider: Vincent Landers Admit Provider: Gayatri Her Primary Care Provider: Leonie Mcdaniel Other Providers: [facility] ; [facility] ; [facility], ; Gayatri Her ; Jennifer Zamora ; [facility] Other Interventions: Discharge Summary Assessment (RN) Last Done: 02/07/20 13:25 DC Date/Time DO NOT enter until pt leaves facility: 02/07/20 17:29 Coding Level of Care Code D/C Day Management >30 mins Diagnoses Acute respiratory failure with hypoxia J96.01 COVID-19 U07.1 Pulmonary edema J81.1 Sepsis A41.9 Sepsis acute organ dysfunction status: unspecified Sepsis type: sepsis due to unspecified organism Acquired hypothyroidism E03.9 Atrial fibrillation I48.91 Atrial fibrillation type: unspecified Hypertension I10 Hypertension type: essential hypertension Depression F33.1 Active/Remission status: currently active Depression Type: major depressive disorder Major depression episode severity: moderate Major depression recurrence: recurrent Hyperlipidemia E78.5 Hyperlipidemia type: unspecified Delirium R41.0
== END 2020-02-07 17:29 | disposition home health service (06) | DRG 871 ==
LOC: ED 19:35 → 2E 23:14 → SUATTDRO 23:14 → 2E 23:59 → 3W 02-03 09:57